=== PATIENT | male | born 1940 | race Caucasian/White ===

== ENCOUNTER 2019-12-07 13:48 | Inpatient (IN) | payer OTHER, SELFPAY ==
[2019-12-07 13:59] VITALS: BMI 23.4
--- NOTE | 2019-12-07 14:01 | ED_ITS ---
HPI - SOB/Dyspnea General: Chief Complaint: Shortness of Breath/Dyspnea Stated Complaint: sob Time Seen by Provider: 12/07/19 14:00 History of Present Illness: HPI Narrative: Pt has been short of breath for 2 weeks with cough and has felt feverish, he has had body ahces. He states he has had to use his nebs and inhaler more than normal MD elicited complaint: shortness of breath and cough Pertinent past history: COPD Onset (ago): week(s) (2) Timing: constant Severity: moderate Exacerbating factors: exertion and movement Relieving factors: nothing Known history of: COPD Associated symptoms: Reports chest congestion and cough; Deny abdominal pain, chest pain, diaphoresis, lightheadedness, nausea or vomiting Treatment prior to arrival: bronchodilator Review of Systems General: Reports: 10 or more systems reviewed and unremarkable except in HPI and below Const: Denies: diaphoresis ENMT: Reports: throat pain Card: Denies: chest pain or lightheadedness Resp: Reports: shortness of breath, productive cough and chest congestion GI: Denies: abdominal pain, nausea, vomiting, diarrhea, constipation or blood in stool Musc: Denies: back pain or extremity swelling Skin/Breast: Denies: rash Neuro: Denies: headache, numbness in extremities or weakness in extremities Psych: Denies: anxiety or depression PFSH ED PFSH: Social History Smoking and tobacco status: former smoker Alcohol intake: never Physical Exam Const: COMMON NORMALS: no apparent distress and oriented x3 GENERAL APPEARANCE: cooperative; not in distress HENMT: COMMON NORMALS: normocephalic HEAD & SCALP: normal to inspection and normocephalic MOUTH: oral and palatal mucosa normal and lip normal THROAT: posterior oropharynx normal and tonsils normal Neck/C-Spine: COMMON NORMALS: full ROM, no lymphadenopathy, supple and no meningeal signs GENERAL: Yes normal visual inspection and Yes trachea midline Chest: COMMONS NORMALS: inspection of chest normal Resp: COMMON NORMALS: normal respiratory effort EFFORT & INSPECTION: Yes able to speak in complete sentences and No respiratory distress AUSCULTATION: wheezes expiratory wheezes and throughout Cardio: COMMON NORMALS: regular rate, regular rhythm, S1 normal heart sound, S2 normal heart sound and no murmurs RATE: regular rate RHYTHM: regular rhythm HEART SOUNDS: S1 normal and S2 normal PERIPHERAL PULSES: radial pulses present and dorsalis pedis pulses present GI: COMMON NORMALS: normal to inspection, nondistended, normoactive bowel sounds, soft to palpation and non-tender INSPECTION: Yes normal to inspection AUSCULTATION: Yes normoactive bowel sounds PALPATION: Yes soft, No tender, No guarding and No rigid RECTAL EXAM: Yes deferred : COMMON NORMALS: Yes no CVA tenderness BLADDER/KIDNEY EXAM: Yes no CVA tenderness Back/Pelvis: COMMON NORMALS: no CVA tenderness Extremity: COMMON NORMALS: normal to inspection, full ROM, normal capillary refill, no calf tenderness and no pedal edema Neuro: COMMON NORMALS: oriented x3, CN's II-XII intact bilaterally, moves all extremities and no focal motor deficits MENINGEAL SIGNS: Yes no meningeal signs Skin: COMMON NORMALS: no rashes or lesions noted GENERAL SKIN EXAM: no rashes or lesions noted Course Vital Signs: Vital signs: Vital Signs Temperature 98.3 F 12/07/19 14:03 Pulse Rate 83 12/07/19 14:03 Respiratory Rate 18 12/07/19 14:03 Blood Pressure 125/68 12/07/19 14:03 Pulse Oximetry 95 12/07/19 14:03 MDM - SOB/Dyspnea MDM Narrative: Medical decision making narrative: This pt has had sob and has interstitial pneumonitis. He is being tested for covid-19. He has an elevated troponin of 26. He has not been able to handle his dyspnea at home with his inhaler and nebs. He will need to be treataed with frequent bronchodilatorts and will need a rule out . Dr Ann agrees and wants him full admit Lab Data: Attestation: I reviewed the patient's lab results. Labs: Lab Results 12/07/19 12/07/19 12/07/19 Range/Units 14:10 14:40 14:40 WBC 5.2 (4.0-10.0) 10^3/ uL RBC 3.88 L (4.1-5.3) 10^6/u L Hgb 12.6 (11.7-16.6) g/dL Hct 37.1 L (42.0-52.0) % MCV 95.6 H (80-94) fL MCH 32.5 (28.0-34.0) pg MCHC 34.0 (30.0-36.0) g/dL RDW 13.3 (12.1-15.1) % Plt Count 133 (130-400) 10^3/c mm MPV 10.8 H (7.4-10.4) fL Neut % (Auto) 65.9 % Lymph % (Auto) 21.4 % Imperial % (Auto) 6.9 % Eos % (Auto) 4.6 % Baso % (Auto) 0.6 % Neut # (Auto) 3.5 (1.8-7.7) 10^3/u L Lymph # (Auto) 1.1 (0.8-4.8) 10^3/u L Imperial # (Auto) 0.4 (0.2-0.9) 10^3/u L Eos # (Auto) 0.2 (0.0-0.8) 10^3/u L Baso # (Auto) 0.0 (0.0-0.1) 10^3/u L Nucleated RBC % (a uto) 0 % Nucleated RBCs # 0.0 /100WBC Sodium 135 L (136-145) mmol/L Potassium 4.8 (3.5-5.1) mmol/L Chloride 102 (98-107) mmol/L Carbon Dioxide 24 (22-29) mmol/L Anion Gap 13.8 (5-19) BUN 20 (8-23) mg/dL Creatinine 1.5 H (0.7-1.2) mg/dL Glucose 158 H (65-115) mg/dL Calculated Osmolal ity 280 L (285-295) mOsm/k g Lactate (0.5-2.2) mmol/L Calcium 9.2 (8.5-10.5) mg/dL Total Bilirubin 0.8 (0.15-1.2) mg/dL AST 20 (0-40) U/L ALT 16 (0-41) U/L Alkaline Phosphata se 84 (40-130) IU/L Troponin T Baselin e (0-15) ng/mL NT-Pro-B Natriuret Pep 90 (0-450) pg/mL Total Protein 6.5 L (6.6-8.7) g/dL Albumin 4.5 (3.5-5.2) g/dL Globulin 2.0 (1.3-4.6) g/dL Influenza Type A A g Negative (Negative) Influenza Type B A g Negative (Negative) 12/07/19 12/07/19 Range/Units 14:40 14:40 WBC (4.0-10.0) 10^3/ uL RBC (4.1-5.3) 10^6/u L Hgb (11.7-16.6) g/dL Hct (42.0-52.0) % MCV (80-94) fL MCH (28.0-34.0) pg MCHC (30.0-36.0) g/dL RDW (12.1-15.1) % Plt Count (130-400) 10^3/c mm MPV (7.4-10.4) fL Neut % (Auto) % Lymph % (Auto) % Imperial % (Auto) % Eos % (Auto) % Baso % (Auto) % Neut # (Auto) (1.8-7.7) 10^3/u L Lymph # (Auto) (0.8-4.8) 10^3/u L Imperial # (Auto) (0.2-0.9) 10^3/u L Eos # (Auto) (0.0-0.8) 10^3/u L Baso # (Auto) (0.0-0.1) 10^3/u L Nucleated RBC % (a uto) % Nucleated RBCs # /100WBC Sodium (136-145) mmol/L Potassium (3.5-5.1) mmol/L Chloride (98-107) mmol/L Carbon Dioxide (22-29) mmol/L Anion Gap (5-19) BUN (8-23) mg/dL Creatinine (0.7-1.2) mg/dL Glucose (65-115) mg/dL Calculated Osmolal ity (285-295) mOsm/k g Lactate 0.7 (0.5-2.2) mmol/L Calcium (8.5-10.5) mg/dL Total Bilirubin (0.15-1.2) mg/dL AST (0-40) U/L ALT (0-41) U/L Alkaline Phosphata se (40-130) IU/L Troponin T Baselin e 26 H (0-15) ng/mL NT-Pro-B Natriuret Pep (0-450) pg/mL Total Protein (6.6-8.7) g/dL Albumin (3.5-5.2) g/dL Globulin (1.3-4.6) g/dL Influenza Type A A g (Negative) Influenza Type B A g (Negative) Imaging Data^: CXR: Radiologist's impression: [address] [address] XRay Report Signed Patient: Glenn Kong #: [id number] : 1940Acct#:[id number] Age/Sex: 79 / MADM Date: 12/07/19 Loc: ERRoom/Bed: Attending Dr: Ordering Provider/Ordering MD: Alka Archuleta DO Date of Service: 12/07/19 Procedure(s): XR chest 1V portable [id number] Accession Number(s): [id number] Report Number: [id number] WS: [id number] CHEST XRAY TECHNIQUE: Portable chest. CLINICAL INFORMATION: pneumonia COMPARISON: None. FINDINGS: Heart: Cardiomegaly. Aortic calcification. Lungs: Chronic emphysematous changes with bilateral perihilar interstitial infiltrates. Recommend correlation for interstitial pneumonitis. No focal pneumonia. No pleural fluid. A few calcified granulomas. Bones: Normal visualized bony structures. XR/XR chest 1V portable [id number] IMPRESSION: 1. Chronic emphysematous changes with perihilar interstitial thickening. Recommend correlation for interstitial pneumonitis. 2. No focal consolidation or pleural fluid. 3. Cardiomegaly. Dictated By:Jae Banda MD Signed By:Jae Banda MDSigned Date/Time:12/07/19 1502 DD/ 1500 EKG Data^: EKG 1: Attestation: I personally reviewed and interpreted this EKG as follows: EKG Interpretation Date: 12/07/19 EKG interpretation time: 14:49 Ischemic changes: non-specific ST-T wave changes Interpretation: sinus rhythm, LAFB, nonspecific st changes, rate 83 Discharge Plan Discharge Patient Disposition: Admitted As Inpatient Clinical Impression: Community acquired pneumonia, Acute exacerbation of chronic obstructive airways disease, Respiratory failure with hypoxia, Tobacco abuse Condition: Stable Prescriptions: No Action sertraline [Zoloft] 25 mg tablet 200 mg PO DAILY RF: 0 aripiprazole [Abilify] 10 mg tablet 10 mg PO DAILY RF: 0 trazodone 100 mg tablet 100 mg PO BEDTIME RF: 0 albuterol sulfate 90 mcg/actuation Hfa Aerosol Inhaler 1 inh INHALATION QID PRN (Reason: Shortness Of Breath) RF: 0 cyclobenzaprine 10 mg Tablet 10 mg PO TID PRN (Reason: Muscle Spasm) RF: 0 latanoprost 0.005 % Drops 1 drp OPHTHALMIC (EYE) BEDTIME RF: 0 ketoconazole 2 % Shampoo 1 applic TOPICAL DAILY RF: 0 vitamin A 10,000 unit Capsule 10,000 unit PO DAILY RF: 0 ascorbic acid (vitamin C) 500 mg Tablet 500 mg PO DAILY RF: 0 omeprazole 20 mg Capsule,Delayed Release(Dr/Ec) 40 mg PO DAILY RF: 0 vitamin B complex Tablet 1 tab PO DAILY RF: 0 hydrocortisone 2.5 % Cream 1 applic TOPICAL BID PRN (Reason: prn) RF: 0 lisinopril 40 mg Tablet 20 mg PO BEDTIME RF: 0 prazosin 2 mg Capsule 4 mg PO BEDTIME RF: 0 fluticasone propionate 110 mcg/actuation Hfa Aerosol Inhaler 1 puff INHALATION DAILY RF: 0 dorzolamide 2 % Drops 1 drp OPHTHALMIC (EYE) TID RF: 0 hypromellose 2.5 % Drops 1 drp OPHTHALMIC (EYE) BID PRN (Reason: Dry Eyes) RF: 0 cholecalciferol (vitamin D3) 2,000 unit Tablet 1,000 unit PO DAILY RF: 0 olodaterol 2.5 mcg/actuation Mist 2 inh INHALATION DAILY RF: 0 Referrals: Randy Lares [Primary Care Provider] - Coding Level of Care Code ED Owner/Photographer for Chg Fwd Exam Comprehensive
[2019-12-07 14:03] VITALS: BP 125/68; PULSE 83; RESP 18; TEMP 36.8; O2SAT 95
--- NOTE | 2019-12-07 14:12 | XR_ITS ---
WS: [id number] CHEST XRAY TECHNIQUE: Portable chest. CLINICAL INFORMATION: pneumonia COMPARISON: None. FINDINGS: Heart: Cardiomegaly. Aortic calcification. Lungs: Chronic emphysematous changes with bilateral perihilar interstitial infiltrates. Recommend cor relation for interstitial pneumonitis. No focal pneumonia. No pleural fluid. A few calcified granulom as. Bones: Normal visualized bony structures. XR/XR chest 1V portable [id number] IMPRESSION: 1. Chronic emphysematous changes with perihilar interstitial thickening. Recom mend correlation for interstitial pneumonitis. 2. No focal consolidation or pleural fluid. 3. Cardiomegaly.
--- NOTE | 2019-12-07 14:13 | ECG_ITS ---
Measurements Intervals [place] Rate: 83 P: 78 NH: 173 QRS: -45 QRSD: 97 T: 82 QT: 357 QTc: 420 SINUS RHYTHM LEFT ANTERIOR FASCICULAR BLOCK [QRS AXIS <= -45, QR IN I, RS IN II] MINIMAL VOLTAGE CRITERIA FOR LVH, CONSIDER NORMAL VARIANT [MEETS CRITERIA IN ONE OF: R(aVL), S(V1), R(V5), R(V5/V6)+S(V1)] NONSPECIFIC T-WAVE ABNORMALITY Compared to ECG 08/13/2018 14:20:15 Left anterior fascicular block now present Ventricular premature complex(es) no longer present Left-axis deviation no longer present T-wave abnormality still present Electronically Signed On 12-08-2019 18:00:14 CDT by Nikki Finn M.D. [id number]
[2019-12-07 14:52] LABS: Basophils % 0.6 %; Eosinophils # 0.2 10^3/uL (0.0-0.8); Eosinophils % 4.6 %; Hematocrit 37.1 % (42.0-52.0); Hemoglobin 12.6 g/dL (11.7-16.6); Lymphocytes # 1.1 10^3/uL (0.8-4.8); Lymphocytes % 21.4 %; Mean Corpuscular Hemoglobin 32.5 pg (28.0-34.0); Mean Corpuscular Volume 95.6 fL (80-94); Mean Platelet Volume 10.8 fL (7.4-10.4); Monocytes # 0.4 10^3/uL (0.2-0.9); Monocytes % 6.9 %; Neutrophils # 3.5 10^3/uL (1.8-7.7); Neutrophils % 65.9 %; Nucleated Red Blood Cells % 0 %; Platelet Count 133 10^3/cmm (130-400); Red Blood Count 3.88 10^6/uL (4.1-5.3); Red Cell Distribution Width 13.3 % (12.1-15.1); White Blood Count 5.2 10^3/uL (4.0-10.0)
[2019-12-07 15:27] LABS: Lactate (Lactic Acid level) 0.7 mmol/L (0.5-2.2)
[2019-12-07 15:28] LABS: Troponin(5th) Baseline 26 ng/mL (0-15)
[2019-12-07 15:38] LABS: Alanine Aminotransferase 16 U/L (0-41); Albumin Level 4.5 g/dL (3.5-5.2); Alkaline Phosphatase 84 IU/L (40-130); Anion Gap 13.8 (5-19); Aspartate Amino Transferase 20 U/L (0-40); Blood Urea Nitrogen 20 mg/dL (8-23); Calcium 9.2 mg/dL (8.5-10.5); Carbon Dioxide 24 mmol/L (22-29); Chloride 102 mmol/L (98-107); Glucose 158 mg/dL (65-115); NT Pro B Type Natriuretic Pept 90 pg/mL (0-450); Osmolality Calculated 280 mOsm/kg (285-295); Potassium 4.8 mmol/L (3.5-5.1); Sodium 135 mmol/L (136-145); Total Bilirubin 0.8 mg/dL (0.15-1.2); Total Protein 6.5 g/dL (6.6-8.7)
[2019-12-07] MEDS: levofloxacin-dextrose 5 % 750 MG/150 ML PREMIX 150 MG IV (16:10)
[2019-12-07 16:11] LABS: Influenza A by IFA Negative (Negative); Influenza B by IFA Negative (Negative)
--- NOTE | 2019-12-07 16:13 | ECG_ITS ---
Measurements Intervals [place] Rate: 82 P: 67 [place]: 166 QRS: -43 QRSD: 96 T: 81 QT: 362 QTc: 425 SINUS RHYTHM LEFT AXIS DEVIATION [QRS AXIS < -30] MINIMAL VOLTAGE CRITERIA FOR LVH, CONSIDER NORMAL VARIANT [MEETS CRITERIA IN ONE OF: R(aVL), S(V1), R(V5), R(V5/V6)+S(V1)] NONSPECIFIC T-WAVE ABNORMALITY Compared to ECG 08/13/2018 14:20:15 Ventricular premature complex(es) no longer present T-wave abnormality still present Electronically Signed On 12-08-2019 18:06:06 CDT by Nikki Finn M.D. [id number]
[2019-12-07 17:26] LABS: Troponin 5 2HR 22.86 ng/mL (0-15)
--- NOTE | 2019-12-07 17:46 | P.HP_ITS ---
Providers/Chief Complaint Admitting Physician: Ron Ann MD Primary Care Provider: Radny Lares Chief Complaint: sob History of Present Illness Glenn Kong is a 79 year old male presents with gradually worsening shortness of breath and dry cough for the last 2 weeks. He felt feverish off and on for the last couple of weeks. Reports that he has been wheezing a lot and using bronchodilators without significant improvement. Denies any travel or sick contacts. For the last 2 months his [facility] friend was staying with him as he has no place to live. He denies chest pain or abdominal pain. Denies any other significant symptoms. He has previous history of COPD but otherwise denies history of diabetes, heart disease or stroke. He does not use oxygen at home. He has depression and bipolar disorder which are under good control on his current regimen. In the emergency department patient was diagnosed with acute COPD exacerbation. COVID19 test was requested. Patient was examined with appropriate precautions. Creatinine is 1.5 and we do not know patient's baseline. Patient's troponin is slightly elevated and likely secondary to demand ischemia. No evidence of heart failure Review of Systems Narrative: Except as mentioned above. 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); Denies: joint swelling Skin/Breast: Denies: rash or redness Neuro: Denies: headache or weakness in extremities Psych: Denies: depression or suicidal ideation Endo: Denies: excessive sweating Danilo/Lymph: Denies: easy bleeding or tender lymph nodes All/Imm: Denies: throat swelling Medications/Allergies Home Medications Medication Instructions Recorded Confirmed Last Taken Type albuterol sulfate 1 inh INHALATION QID PRN 12/07/19 12/07/19 Unknown History ascorbic acid (vitamin C) 500 mg PO DAILY 12/07/19 12/07/19 Unknown History cholecalciferol (vitamin D3) 1,000 unit PO DAILY 12/07/19 12/07/19 Unknown History cyclobenzaprine 10 mg PO TID PRN 12/07/19 12/07/19 Unknown History dorzolamide 1 drp OPHTHALMIC (EYE) TID 12/07/19 12/07/19 Unknown History fluticasone propionate 1 puff INHALATION DAILY 12/07/19 12/07/19 Unknown History hydrocortisone 1 applic TOPICAL BID PRN 12/07/19 12/07/19 Unknown History hypromellose 1 drp OPHTHALMIC (EYE) BID PRN 12/07/19 12/07/19 Unknown History ketoconazole 1 applic TOPICAL DAILY 12/07/19 12/07/19 Unknown History latanoprost 1 drp OPHTHALMIC (EYE) BEDTIME 12/07/19 12/07/19 Unknown History lisinopril 20 mg PO BEDTIME 12/07/19 12/07/19 Unknown History olodaterol 2 inh INHALATION DAILY 12/07/19 12/07/19 Unknown History omeprazole 40 mg PO DAILY 12/07/19 12/07/19 Unknown History prazosin 4 mg PO BEDTIME 12/07/19 12/07/19 Unknown History vitamin A 10,000 unit PO DAILY 12/07/19 12/07/19 Unknown History vitamin B complex 1 tab PO DAILY 12/07/19 12/07/19 Unknown History Allergies Allergy/AdvReac Type Severity Reaction Status Date / Time No Known Allergies Allergy Verified 12/07/19 14:04 PFSH Acute PFSH: Medical History (Updated 12/07/19 @ 17:57 by Ron Ann MD) Bipolar disorder Depression Macular degeneration Ulnar nerve entrapment at right elbow Surgical History (Updated 12/07/19 @ 17:57 by Ron Ann MD) History of hammertoe correction Hx of cholecystectomy Family History (Updated 12/07/19 @ 17:58 by Ron Ann MD) Father , Alcoholic and from complications of TB No problems noted. Mother Lung disease Social History Smoking and tobacco status: former smoker Alcohol intake: never Vitals/I&O/Wt Last Vital Signs Temp 98.3 F 12/07/19 14:03 Pulse 83 12/07/19 14:03 Resp 18 12/07/19 14:03 BP 125/68 12/07/19 14:03 Pulse Ox 95 12/07/19 14:03 Weight last 48 hrs Weight 76.204 kg Physical Exam Const: COMMON NORMALS: no apparent distress, oriented x3 and alert HENMT: COMMON NORMALS: normocephalic and head/scalp atraumatic HEAD & SCALP: normocephalic and atraumatic Eye: COMMON NORMALS: EOMs intact bilaterally, conjunctivae normal and no scleral icterus CONJUNCTIVA: Yes conjunctivae normal Neck/C-Spine: COMMON NORMALS: no lymphadenopathy and no meningeal signs Lymph: LYMPHATIC: no lymphadenopathy noted Chest: COMMONS NORMALS: palpation of chest normal Resp: COMMON NORMALS: no use of accessory muscles OTHER: Coarse breath sounds throughout which appear to be upper airway transmitted sounds. Scattered expiratory wheezing noted. Cardio: COMMON NORMALS: regular rate, regular rhythm and no murmurs RATE: regular rate RHYTHM: regular rhythm OTHER: No lower extremity edema GI: COMMON NORMALS: soft to palpation and non-tender PALPATION: Yes soft RECTAL EXAM: Yes deferred : COMMON NORMALS: Yes no CVA tenderness BLADDER/KIDNEY EXAM: Yes no CVA tenderness Back/Pelvis: COMMON NORMALS: no CVA tenderness and thoracic and lumbar spine normal to inspection Extremity: COMMON NORMALS: normal to inspection and normal capillary refill Neuro: COMMON NORMALS: oriented x3 and no focal motor deficits SENSORIUM/ORIENTATION: Yes alert MENINGEAL SIGNS: Yes no meningeal signs Psych: COMMON NORMALS: mental status grossly normal, thought process normal and cooperative THOUGHT PROCESS: normal thought process Skin: COMMON NORMALS: no rashes or lesions noted GENERAL SKIN EXAM: no rashes or lesions noted Data : 12/07/19 14:40 12/07/19 14:40 Micro: Microbiology 12/07/19 14:40 Blood Culture - Preliminary Blood SPECIMEN COLLECTED 12/07/19 14:35 Blood Culture - Preliminary Blood SPECIMEN COLLECTED A&P Assessment and plan (1) Acute bronchitis: Status: Acute (2) Acute exacerbation of chronic obstructive airways disease: Status: Acute Additional A&P Information Continue with bronchodilators. Hold steroids due to potential for COVID although some studies show early steroid treatment may be beneficial with coronavirus infection. Patient was given Levaquin and we will continue that because of findings of pneumonitis and possible early pneumonia. Physical therapy. Lovenox for DVT prophylaxis with close monitoring of hemoglobin. Protonix for GI protection. Attestations Medical Necessity Statement*: Patient with acute COPD exacerbation and concern for early pneumonia requires at least observation for further monitoring and treatment. I expect patient will require less than two midnights. Coding Level of Care Code Acute Director Meetings for Tori Saldana Diagnoses Acute bronchitis J20.9 Acute exacerbation of chronic obstructive airways disease J44.1
[2019-12-07 18:39] VITALS: BP 116/68; PULSE 79; RESP 17; O2SAT 97
[2019-12-07 19:16] LABS: Troponin 5 2HR Delta -3.14 ABS# (0-10)
--- NOTE | 2019-12-07 19:34 | PC.NURSE ---
Patient taken to floor in stable condition, care turned over to Alan CAMERON.
[2019-12-07 20:09] VITALS: BP 130/72; PULSE 72; RESP 24; TEMP 36.7; O2SAT 95
--- NOTE | 2019-12-07 20:13 | ECG_ITS ---
Measurements Intervals [place] Rate: 68 P: 75 [place]: 180 QRS: -39 QRSD: 96 T: 61 QT: 382 QTc: 407 SINUS RHYTHM MARKED LEFT AXIS DEVIATION [QRS AXIS < -30] NONSPECIFIC T-WAVE ABNORMALITY Compared to ECG 08/13/2018 14:20:15 Ventricular premature complex(es) no longer present T-wave abnormality still present Electronically Signed On 12-08-2019 18:09:45 CDT by Nikki Finn M.D. [id number]
[2019-12-07] MEDS: lactated ringers 1,000 ML 50 ML IV (20:54)
[2019-12-07] MEDS: pantoprazole DR 40 mg Tablet PO (20:55)
[2019-12-07] MEDS: lisinopril 20 mg Tablet PO (20:55)
[2019-12-07] MEDS: trazodone 100 mg Tablet PO (20:55)
[2019-12-07] MEDS: enoxaparin 40 mg/0.4 mL Syringe SUBCUT (20:56)
[2019-12-07 21:08] LABS: Troponin 5 6HR 24.99 ng/mL (0-15)
[2019-12-07] MEDS: dorzolamide 2% Op Soln 10 mL Btl 1 DROP EYE-BOTH (22:06)
[2019-12-07] MEDS: latanoprost 0.005% Op Soln 2.5 mL Btl 1 DROP EYE-BOTH (22:06)
[2019-12-07] MEDS: prazosin 1 mg Capsule 4 MG PO (22:07)
[2019-12-07 22:45] VITALS: PULSE 87; RESP 18; O2SAT 97
[2019-12-07] MEDS: ipratropium-albuterol 3 mL Neb INHALATION (22:45)
[2019-12-07 22:52] LABS: Troponin 5 6HR Delta -1.01 ng/L (0-12)
[2019-12-08] VITALS (11 sets, daily range): BP systolic 99–148; BP diastolic 57–76; PULSE 76–89; RESP 18–24; TEMP 36.5–37; O2SAT 91–99
--- NOTE | 2019-12-08 00:44 | PC.PHAR ---
RENAL DOSING FOR LEVAQUIN 750MG IV Q DAY CHANGED TO Q48H DUE TO CRCL OF 42
[2019-12-08 03:46] LABS: INR 1.03 (0.8-1.2)
[2019-12-08 03:47] LABS: Partial Thromboplastin Time 34.5 SECONDS (23.9-36.7)
[2019-12-08 03:54] LABS: Alanine Aminotransferase 12 U/L (0-41); Albumin Level 3.9 g/dL (3.5-5.2); Alkaline Phosphatase 69 IU/L (40-130); Anion Gap 14.8 (5-19); Aspartate Amino Transferase 16 U/L (0-40); Blood Urea Nitrogen 23 mg/dL (8-23); Calcium 8.9 mg/dL (8.5-10.5); Carbon Dioxide 24 mmol/L (22-29); Chloride 106 mmol/L (98-107); Globulin 1.9 g/dL (1.3-4.6); Glucose 134 mg/dL (65-115); Magnesium 2.1 mg/dL (1.7-2.3); Osmolality Calculated 289 mOsm/kg (285-295); Potassium 4.8 mmol/L (3.5-5.1); Sodium 140 mmol/L (136-145); Total Bilirubin 0.5 mg/dL (0.15-1.2); Total Protein 5.8 g/dL (6.6-8.7)
[2019-12-08 04:06] LABS: Basophils % 0.3 %; Eosinophils # 0.2 10^3/uL (0.0-0.8); Eosinophils % 3.3 %; Hematocrit 34.3 % (42.0-52.0); Hemoglobin 11.2 g/dL (11.7-16.6); Lymphocytes # 1.4 10^3/uL (0.8-4.8); Lymphocytes % 22.6 %; Mean Corpuscular HGB Conc 32.7 g/dL (30.0-36.0); Mean Corpuscular Hemoglobin 31.8 pg (28.0-34.0); Mean Corpuscular Volume 97.4 fL (80-94); Mean Platelet Volume 10.7 fL (7.4-10.4); Monocytes # 0.5 10^3/uL (0.2-0.9); Monocytes % 8.3 %; Neutrophils # 4.1 10^3/uL (1.8-7.7); Neutrophils % 64.9 %; Nucleated Red Blood Cells % 0 %; Platelet Count 116 10^3/cmm (130-400); Red Blood Count 3.52 10^6/uL (4.1-5.3); Red Cell Distribution Width 13.4 % (12.1-15.1); White Blood Count 6.3 10^3/uL (4.0-10.0)
[2019-12-08] MEDS: sertraline 100 mg Tablet 200 MG PO (08:52)
[2019-12-08] MEDS: ARIPiprazole 10 mg Tablet PO (08:52)
[2019-12-08] MEDS: ipratropium-albuterol 3 mL Neb INHALATION ×2 (08:58→15:26)
[2019-12-08] MEDS: dorzolamide 2% Op Soln 10 mL Btl 1 DROP EYE-BOTH ×3 (09:06→21:35)
--- NOTE | 2019-12-08 15:58 | P.PN_ITS ---
Subjective Subjective: Interval history: Patient reports feeling better but reports that he continues to have cough. His breathing is improved and he denies chest pain. He has good appetite and ate all of his lunch. COVID19 test came back negative. Patient does not feel strong enough to be dismissed home. His vitals are stable. He is saturating 93% on room air. Vitals/I&O/Wt Last Vital Signs Temp 98.6 F 12/08/19 15:46 Pulse 89 12/08/19 15:46 Resp 18 12/08/19 15:46 BP 119/65 12/08/19 15:46 Pulse Ox 93 12/08/19 15:46 12/08/19 12/08/19 12/08/19 06:59 14:59 22:59 Intake Total 200 / 500 360 / 360 Output Total 1000 / 1000 Balance 200 / 500 -640 / -640 Weight last 48 hrs Weight 76.204 kg Physical Exam Const: COMMON NORMALS: no apparent distress and oriented x3 Resp: COMMON NORMALS: normal respiratory effort OTHER: Coarse upper airway transmitted sounds throughout. Cardio: COMMON NORMALS: regular rate, regular rhythm and S2 normal heart sound RATE: regular rate RHYTHM: regular rhythm HEART SOUNDS: S2 normal OTHER: No lower extremity edema GI: COMMON NORMALS: normal to inspection, nondistended, normoactive bowel sounds, soft to palpation and non-tender PALPATION: Yes soft Neuro: COMMON NORMALS: oriented x3 and no focal motor deficits Data : 12/08/19 03:19 12/08/19 03:19 Micro: Microbiology 12/07/19 14:40 Blood Culture - Preliminary Blood NEGATIVE TO DATE 12/07/19 14:35 Blood Culture - Preliminary Blood NEGATIVE TO DATE A&P Assessment and plan (1) Acute bronchitis: Status: Acute (2) Acute exacerbation of chronic obstructive airways disease: Status: Acute Additional A&P Information Continue current monitoring and treatment including Levaquin and if continues to improve we could possibly dismiss patient home in a day or 2. Attestations Medical Necessity Statement*: Patient with acute COPD exacerbation and bronchitis requires close inpatient monitoring and treatment as he remains symptomatic. Coding Level of Care Code Acute Lumber Tying Machine Operator for Tori Saldana Diagnoses Acute bronchitis J20.9 Acute exacerbation of chronic obstructive airways disease J44.1
--- NOTE | 2019-12-08 17:23 | PC.PT ---
PT evaluation on hold today pending results of coved testing; will follow tomorrow
[2019-12-08] MEDS: lactated ringers 1,000 ML 50 ML IV (18:00)
[2019-12-08] MEDS: enoxaparin 40 mg/0.4 mL Syringe SUBCUT (21:13)
[2019-12-08] MEDS: lisinopril 20 mg Tablet PO (21:13)
[2019-12-08] MEDS: trazodone 100 mg Tablet PO (21:14)
[2019-12-08] MEDS: prazosin 1 mg Capsule 4 MG PO (21:35)
[2019-12-08] MEDS: latanoprost 0.005% Op Soln 2.5 mL Btl 1 DROP EYE-BOTH (21:35)
[2019-12-09] VITALS (8 sets, daily range): BP systolic 114–124; BP diastolic 69–75; PULSE 73–86; RESP 16–26; TEMP 36.6–37; O2SAT 93–96
[2019-12-09 05:20] LABS: Basophils % 0.3 %; Eosinophils # 0.3 10^3/uL (0.0-0.8); Eosinophils % 4.4 %; Hematocrit 34.6 % (42.0-52.0); Hemoglobin 11.4 g/dL (11.7-16.6); Lymphocytes # 1.3 10^3/uL (0.8-4.8); Lymphocytes % 20.7 %; Mean Corpuscular HGB Conc 32.9 g/dL (30.0-36.0); Mean Corpuscular Hemoglobin 32.7 pg (28.0-34.0); Mean Corpuscular Volume 99.1 fL (80-94); Mean Platelet Volume 10.7 fL (7.4-10.4); Monocytes # 0.6 10^3/uL (0.2-0.9); Monocytes % 9.4 %; Neutrophils % 64.4 %; Nucleated Red Blood Cells % 0 %; Platelet Count 125 10^3/cmm (130-400); Red Blood Count 3.49 10^6/uL (4.1-5.3); Red Cell Distribution Width 13.4 % (12.1-15.1); White Blood Count 6.2 10^3/uL (4.0-10.0)
[2019-12-09 05:47] LABS: Alanine Aminotransferase 12 U/L (0-41); Albumin Level 3.9 g/dL (3.5-5.2); Alkaline Phosphatase 71 IU/L (40-130); Anion Gap 14.8 (5-19); Aspartate Amino Transferase 16 U/L (0-40); Blood Urea Nitrogen 24 mg/dL (8-23); Calcium 9.1 mg/dL (8.5-10.5); Carbon Dioxide 26 mmol/L (22-29); Chloride 106 mmol/L (98-107); Globulin 1.8 g/dL (1.3-4.6); Glucose 124 mg/dL (65-115); Magnesium 2.2 mg/dL (1.7-2.3); Osmolality Calculated 292 mOsm/kg (285-295); Potassium 4.8 mmol/L (3.5-5.1); Sodium 142 mmol/L (136-145); Total Bilirubin 0.5 mg/dL (0.15-1.2); Total Protein 5.7 g/dL (6.6-8.7)
[2019-12-09] MEDS: dorzolamide 2% Op Soln 10 mL Btl 1 DROP EYE-BOTH (08:16)
[2019-12-09] MEDS: sertraline 100 mg Tablet 200 MG PO (08:16)
[2019-12-09] MEDS: ipratropium-albuterol 3 mL Neb INHALATION (08:22)
[2019-12-09] MEDS: ARIPiprazole 10 mg Tablet PO (08:40)
--- NOTE | 2019-12-09 09:31 | PM.DCS ---
Discharge Providers Date of Admission: 12/07/19 17:11 Date of Discharge: December 09, 2019 Attending Provider at Admission: Ron Ann MD Attending Provider at Discharge: Ron Ann MD Primary Care Provider: Randy Lares Diagnoses at Discharge Discharge Diagnosis (1) Acute bronchitis: Status: Acute (2) Acute exacerbation of chronic obstructive airways disease: Status: Acute Reason for Visit Reason for Visit: Reason For Visit: sob Hospital Course Discharge Summary: Patient presents with acute shortness of breath and cough. He was diagnosed with acute bronchitis and related acute COPD exacerbation. Early pneumonia cannot be completely ruled out. Patient was treated with Levaquin and breathing treatments and gradually improved and this morning reports feeling much better and strong enough to be dismissed home. This morning patient denies shortness of breath or chest pain. Reports that his cough is getting better. He is breathing without any difficulty on room air this morning. His exam much improved and he has very minimal upper airway transmitted coarse breath sounds but otherwise much cleared with no evidence of wheezing or rails. He reports having good appetite. He lives with his roommate and feels safe to go home. I will request outpatient follow-up with Dr. Castaneda. Patient reports having [place] arranged home health once every month and reports that he does not need more than that. Physical Exam Const: COMMON NORMALS: no apparent distress and oriented x3 Resp: COMMON NORMALS: normal respiratory effort OTHER: Minimal coarse upper airway transmitted sounds. No wheezing or rales. Cardio: COMMON NORMALS: regular rate, regular rhythm and S2 normal heart sound RATE: regular rate RHYTHM: regular rhythm HEART SOUNDS: S2 normal OTHER: No lower extremity edema GI: COMMON NORMALS: normal to inspection, nondistended, normoactive bowel sounds, soft to palpation and non-tender PALPATION: Yes soft Neuro: COMMON NORMALS: oriented x3 and no focal motor deficits Discharge Data Data Completed and Pending: Completed Studies During Hospitalization Category Date Time Status XR chest 1V bertha ble [id number] Stat Exams 12/07/19 14:12 Completed Pending at discharge Category Date Time Status Blood Culture Sta t Lab 12/07/19 14:40 Results Complete Blood Co unt w/Auto AM LABS Lab 12/10/19 04:00 Ordered Comprehensive Met abolic Panel AM LA BS Lab 12/10/19 04:00 Ordered Magnesium AM LABS Lab 12/10/19 04:00 Ordered Labs from last 24 hours 12/09/19 12/09/19 12/07/19 04:54 04:54 22:30 WBC 6.2 RBC 3.49 L Hgb 11.4 L Hct 34.6 L MCV 99.1 H MCH 32.7 MCHC 32.9 RDW 13.4 Plt Count 125 L MPV 10.7 H Neut % (Auto) 64.4 Lymph % (Auto) 20.7 [place] % (Auto) 9.4 Eos % (Auto) 4.4 Baso % (Auto) 0.3 Neut # (Auto) 4.0 Lymph # (Auto) 1.3 [place] # (Auto) 0.6 Eos # (Auto) 0.3 Baso # (Auto) 0.0 Nucleated RBC % (a uto) 0 Nucleated RBCs # 0.0 Sodium 142 Potassium 4.8 Chloride 106 Carbon Dioxide 26 Anion Gap 14.8 BUN 24 H Creatinine 1.5 H Glucose 124 H Calculated Osmolal ity 292 Calcium 9.1 Magnesium 2.2 Total Bilirubin 0.5 AST 16 ALT 12 Alkaline Phosphata se 71 Total Protein 5.7 L Albumin 3.9 Globulin 1.8 Nasal/Oral COVID-1 9 PCR See comment Vitals: Last Vital Signs Temp 97.9 F 12/09/19 07:24 Pulse 83 12/09/19 08:28 Resp 18 12/09/19 08:26 BP 121/69 12/09/19 07:24 Pulse Ox 93 12/09/19 08:26 Discharge Plan Discharge Patient Disposition: Home, Self-Care Condition: Stable Prescriptions: New levofloxacin [Levaquin] 750 mg tablet 750 mg PO EVERY OTHER DAY 7 Days Qty: 4 RF: 0 Continued sertraline [Zoloft] 25 mg tablet 200 mg PO DAILY RF: 0 aripiprazole [Abilify] 10 mg tablet 10 mg PO DAILY RF: 0 trazodone 100 mg tablet 100 mg PO BEDTIME RF: 0 albuterol sulfate 90 mcg/actuation Hfa Aerosol Inhaler 1 inh INHALATION QID PRN (Reason: Shortness Of Breath) RF: 0 cyclobenzaprine 10 mg Tablet 10 mg PO TID PRN (Reason: Muscle Spasm) RF: 0 latanoprost 0.005 % Drops 1 drp OPHTHALMIC (EYE) BEDTIME RF: 0 ketoconazole 2 % Shampoo 1 applic TOPICAL DAILY RF: 0 vitamin A 10,000 unit Capsule 10,000 unit PO DAILY RF: 0 ascorbic acid (vitamin C) 500 mg Tablet 500 mg PO DAILY RF: 0 omeprazole 20 mg Capsule,Delayed Release(Dr/Ec) 40 mg PO DAILY RF: 0 vitamin B complex Tablet 1 tab PO DAILY RF: 0 hydrocortisone 2.5 % Cream 1 applic TOPICAL BID PRN (Reason: prn) RF: 0 lisinopril 40 mg Tablet 20 mg PO BEDTIME RF: 0 prazosin 2 mg Capsule 4 mg PO BEDTIME RF: 0 fluticasone propionate 110 mcg/actuation Hfa Aerosol Inhaler 1 puff INHALATION DAILY RF: 0 dorzolamide 2 % Drops 1 drp OPHTHALMIC (EYE) TID RF: 0 hypromellose 2.5 % Drops 1 drp OPHTHALMIC (EYE) BID PRN (Reason: Dry Eyes) RF: 0 cholecalciferol (vitamin D3) 2,000 unit Tablet 1,000 unit PO DAILY RF: 0 olodaterol 2.5 mcg/actuation Mist 2 inh INHALATION DAILY RF: 0 Discharge Orders: Discharge Order (Routine); Ordered 12/09/19 Ordered By: Ron Ann Referrals: Randy Lares [Primary Care Provider] - 4-7 days Carlos Castaneda MD [Physician] - 2 weeks Discharge Diet: Regular Discharge Activity: Increase activity as tolerated Activity Restrictions/Additional Instructions: Please call your doctor or present to emergency department if your condition worsens or you develop diarrhea. Discharge Attestations Time Spent in Discharge Care*: greater than 30 min Quality Metrics Clinical Quality Measures During this hospital stay, did patient experience: None Coding Level of Care Code Acute Tactical Air Defense Controller for Tori Saldana Diagnoses Acute bronchitis J20.9 Acute exacerbation of chronic obstructive airways disease J44.1
--- NOTE | 2019-12-09 15:02 | PC.RESP ---
Patient given information for Pulmonary Rehab
== END 2019-12-09 14:30 | disposition home or self-care (01) | DRG 190 ==
LOC: ER 17:09 → MEDSURG 18:26
PROVIDERS: Admitting Provider Internal Medicine; Emergency Provider Emergency Medicine; Family Provider Internal Medicine; PCP Internal Medicine; Visit Provider Internal Medicine
DX: J44.0 Chronic obstructive pulmonary disease with (acute) lower respiratory infection (principal); J18.9 Pneumonia, unspecified organism; J20.9 Acute bronchitis, unspecified; H54.8 Legal blindness, as defined in USA; H35.30 Unspecified macular degeneration; F32.9 Major depressive disorder, single episode, unspecified; Z87.891 Personal history of nicotine dependence
CPT/HCPCS: 12345; 36415; 71045; 80053; 83605; 83735; 83880; 84484; 85025; 85610; 85730; 87040; 87635; 87804; 93005; 94640; 96372; 97110; 97161; 97530; 99283; J1650; J1956; J3535

== ENCOUNTER 2020-01-03 11:55 | Outpatient (RCR) | payer OTHER, SELFPAY | END 2020-01-30 23:59 | disposition home or self-care (01) | LOC: SPT 11:55 | PROVIDERS: Family Provider Internal Medicine; Referring Provider Family Medicine; Visit Provider Family Medicine | DX: R53.1 Weakness (principal) | CPT/HCPCS: 97110; 97162 ==

== ENCOUNTER 2020-01-31 06:00 | Outpatient (RCR) | payer OTHER, SELFPAY | END 2020-02-24 16:53 | disposition home or self-care (01) | LOC: SPT 06:00 | PROVIDERS: PCP Internal Medicine; Visit Provider Family Medicine | DX: R53.1 Weakness (principal) | CPT/HCPCS: 97110 ==

== ENCOUNTER 2020-07-04 21:38 | Emergency (ER) | payer OTHER, SELFPAY ==
[2020-07-04 21:49] VITALS: BP 95/62; PULSE 84; RESP 16; TEMP 36.9; O2SAT 94; BMI 23.8
--- NOTE | 2020-07-04 22:15 | CTR_ITS ---
PROCEDURE INFORMATION: Exam: CT Abdomen And Pelvis With Contrast Exam date and time: 07/04/2020 11:39 PM Age: 79 years old Clinical indication: Abdominal pain; Generalized TECHNIQUE: Imaging protocol: Computed tomography of the abdomen and pelvis with intravenous contrast. Radiation optimization: All CT scans at this facility use at least one of these dose optimization techniques: automated exposure control; mA and/or kV adjustment per patient size (includes targeted exams where dose is matched to clinical indication); or iterative reconstruction. Contrast material: VISI; Contrast volume: 95 ml; Contrast route: INTRAVENOUS (IV); COMPARISON: CR FL barium enema [id number] 09/25/2018 9:33 AM RADIATION DOSE METRICS: Total DLP (mGy-cm): 838.26 FINDINGS: Lungs: Mild bronchiectasis in the lingula. Moderate bronchiectasis in the left lower lobe. Mild atelectasis and/or consolidation at bilateral lung bases (more prominent on the left). Liver: Unremarkable. Gallbladder and bile ducts: Status post cholecystectomy. Pancreas: Unremarkable. Spleen: Unremarkable. Adrenal glands: Unremarkable. Kidneys and ureters: The kidneys are unremarkable. No renal stones identified. No hydronephrosis on either side. Stomach and bowel: No bowel obstruction identified. Diverticulosis of the colon without evidence of diverticulitis. Appendix: A normal-appearing appendix is seen in the right lower quadrant. Intraperitoneal space: No free intraperitoneal air identified. No free intraperitoneal fluid identified. Vasculature: No abdominal aortic aneurysm. Lymph nodes: Unremarkable. Urinary bladder: Unremarkable as visualized. Reproductive: Many metallic seeds noted in the prostate. Bones/joints: Mild degenerative changes of the lower thoracic spine. Marked degenerative changes of the lumbar spine. Partial fusion of the vertebral bodies of L2, L3, and L4. Soft tissues: Unremarkable. CT/CT abdomen pelvis w con* [id number] IMPRESSION: 1. Mild bronchiectasis in the lingula. Moderate bronchiectasis in the left lower lobe. Mild atelectasis and/or consolidation at bilateral lung bases (more prominent on the left). 2. Additional, nonemergent findings as above. Radiation Dose CTDIVOL = (mGy): DLP = 838.26 (mGy-cm)
[2020-07-04 22:16] VITALS: BP 126/64; PULSE 78; RESP 18; O2SAT 95
--- NOTE | 2020-07-04 22:16 | US_ITS ---
WS: [id number] SCROTAL ULTRASOUND REASON FOR EXAM: Left testicular pain COMPARISON: None available. TECHNIQUE: Grayscale and duplex color Doppler ultrasound examination of the scrotum. FINDINGS: RIGHT: Right testes measures 3.6 cm x 1.7 cm x 1.2 cm. Normal color Doppler blood flow. No focal lesion. Nor mal echogenicity. Right epididymis measures 0.6 x 0.5 cm. LEFT: Left testes measures 3.1 cm x 1.9 cm x 1.9 cm. Normal color Doppler blood flow. No focal lesion. Norm al echogenicity. Left epididymis measures 0.9 x 1.0 cm. There is increased blood flow. There is a small amount of flui d in the left hemiscrotum adjacent to the epididymis. US/US scrotum [id number] IMPRESSION: No testicular torsion. Probable left epididymitis, epididymoorchitis.
--- NOTE | 2020-07-04 22:18 | W.ED.MALEGU ---
HPI - Male Genitourinary General: Chief complaint: Urogenital-Male Stated complaint: possible hernia Time Seen by Provider: 07/04/20 22:12 Source: patient Mode of arrival: ambulatory Limitations: no limitations History of Present Illness: HPI Narrative: Mr. Kong is a nice 79-year-old male who comes in complaining of left testicular pain upon movement. Patient states the pain is there only when he moves in certain positions. Is been present for the past 4 days. He denies any swelling or lumps in the groin. He denies any nausea or vomiting but at times he does have pain in his left lower quadrant. Patient denies any dysuria or hematuria. Patient denies any difficulty urinating, nausea or vomiting, back pain or bowel issues such as constipation or diarrhea. Associated symptoms: Deny dysuria, hematuria, nausea or vomiting Review of Systems Const: Denies: fever(s), chills, body aches, fatigue, malaise or diaphoresis Eyes: Denies: change in vision, blurry vision, photophobia, eye discomfort, eye discharge, eye redness or yellow eyes ENMT: Denies: throat pain, odynophagia, hoarseness, swelling of lips/tongue, ear or mastoid pain, ear discharge, change in hearing or nasal discharge Card: Denies: chest pain, palpitations, irregular heart rhythm, edema, lightheadedness, syncope, pre-syncope, dyspnea on exertion or orthopnea Resp: Denies: dyspnea, productive cough, non-productive cough, wheezing, hemoptysis or chest congestion GI: Reports: abdominal pain; Denies: nausea, vomiting, hematemesis, coffee ground emesis, heartburn, diarrhea, constipation, GI cramping, hematochezia or melena : Reports: testicular pain; Denies: flank pain, dysuria, urinary frequency, urinary urgency or hematuria Musc: Denies: neck pain, back pain, extremity pain, extremity swelling, joint pain, joint swelling, joint redness, joint warmth or joint stiffness Skin/Breast: Denies: rash, pruritus, erythema, skin pain or skin tenderness Neuro: Denies: headache(s), numbness in extremities, weakness in extremities, sensory changes, lack of coordination, difficulty walking, dizziness, vertigo, confusion, Slurred speech present or seizure-like activity Danilo/Lymph: Denies: easy bruising, easy bleeding, petechiae, purpura or enlarged lymph nodes All/Imm: Denies: urticaria, throat swelling, tongue swelling, facial swelling or acute wheezing PFSH ED PFSH: Medical History Bipolar disorder Chronic obstructive pulmonary disease Dactylitis of toe Depression Macular degeneration Ulnar nerve entrapment at right elbow Surgical History History of hammertoe correction Hx of cholecystectomy Family History Father , Alcoholic and from complications of TB No problems noted. 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 date alcohol: 1989 Caregiver/support person: Yes Lives independently: Yes Household members: caregiver Current occupational status: retired and disabled History of recent travel: No Current gender identity: Male Physical Exam Const: COMMON NORMALS: no acute distress, patient oriented x3, no limitations and alert GENERAL APPEARANCE: cooperative HENMT: COMMON NORMALS: normocephalic, atraumatic, external ears normal, EAC's normal and Normal external nose present HEAD & SCALP: normal to inspection, normocephalic and atraumatic FACE & SINUS: normal facial exam and face symmetric NOSE: Normal external nose present and Normal nares present EXTERNAL EAR: Yes external ears normal EXTERNAL AUDITORY CANAL: EAC's normal MOUTH: Normal oral and palatal mucosa present, lip normal and tongue normal Eye: COMMON NORMALS: Equal, round and reactive pupils present and conjunctivae normal GENERAL EYE: appearance normal, both eyes and all related structures ALIGNMENT: Yes alignment normal PERIORBITAL: periorbital findings normal EYELID: eyelids normal CONJUNCTIVA: Yes conjunctivae normal SCLERA: sclerae normal PUPIL: Yes Equal, round and reactive pupils present Neck/C-Spine: COMMON NORMALS: full ROM, no lymphadenopathy, supple, no meningeal signs and no JVD GENERAL: Yes normal visual inspection and Yes trachea midline Chest: COMMONS NORMALS: normal inspection of the chest and normal palpation of entire chest wall Resp: COMMON NORMALS: normal respiratory effort, No retractions, No use of accessory muscles and clear to auscultation bilaterally EFFORT & INSPECTION: Yes able to speak in complete sentences and Yes symmetric chest movement AUSCULTATION: clear to auscultation bilaterally, no crackles, no rales, no rhonchi and no wheezes Cardio: COMMON NORMALS: no JVD, regular rate, regular rhythm, S1 normal heart sound present and S2 normal heart sound present RATE: regular rate RHYTHM: regular rhythm HEART SOUNDS: S1 normal heart sound present, S2 normal heart sound present, no click, no gallops, no murmurs and no rubs GI: COMMON NORMALS: Soft to palpation and No hepatosplenomegaly present PALPATION: Yes Soft to palpation, Yes Tenderness to palpation present (GI) Details: LLQ, No Guarding due to palpation present (GI), No Rigid due to palpation, Yes No hepatosplenomegaly present, No Hernia present, No Palpable mass present and No Pulsatile mass present : COMMON NORMALS: Yes no CVA tenderness BLADDER/KIDNEY EXAM: Yes no CVA tenderness SCROTUM: Yes testes descended bilaterally, Yes Cremasteric reflex present and No inguinal hernia TESTES: Yes testicular tenderness Testicular tenderness laterality: left Back/Pelvis: COMMON NORMALS: no CVA tenderness, thoracic and lumbar spine normal to inspection, no thoracic nor lumbar tenderness and thoraco-lumbar ROM normal Extremity: COMMON NORMALS: normal to inspection, full ROM, capillary refill normal, no joint enlargement, no clubbing, cyanosis or edema and no calf tenderness Neuro: COMMON NORMALS: patient oriented x3, CN's II-XII intact bilaterally, moves all extremities, no focal motor deficits and no sensory deficits noted SENSORIUM/ORIENTATION: Yes alert MENINGEAL SIGNS: Yes no meningeal signs SPEECH: speech normal Psych: COMMON NORMALS: mental status grossly normal, Normal thought process present, cooperative, normal affect, speech normal and activity/motor behavior normal SPEECH: Yes normal speech THOUGHT PROCESS: Normal thought process present Skin: COMMON NORMALS: no rashes or lesions noted, turgor normal, no jaundice, no petechiae and no mottling GENERAL SKIN EXAM: no rashes or lesions noted and turgor normal Course Vital Signs: Vital signs: Vital Signs Temperature 98.4 F 07/04/20 21:49 Pulse Rate 67 07/05/20 00:32 Respiratory Rate 14 07/05/20 00:32 Blood Pressure 115/51 07/05/20 00:32 Pulse Oximetry 94 07/05/20 00:32 MDM - Male MDM Narrative: Medical decision making narrative: Ultrasound confirms epididymitis. CT scan does not show any evidence of other acute pathology. There is questionable atelectasis versus infiltrates in the bases but the patient is not symptomatic from a pulmonary perspective. Going to place him on Levaquin which should cover lung and his epididymitis. Give him medication for pain. He agrees to return should his symptoms change or worsen. Lab Data: Attestation: I reviewed the patient's lab results. Labs: Lab Results 07/04/20 07/04/20 07/04/20 Range/Units 22:25 22:38 22:38 WBC 5.3 (4.0-10.0) 10^3/ uL RBC 3.84 L (4.1-5.3) 10^6/u L Hgb 12.3 (11.7-16.6) g/dL Hct 37.5 L (42.0-52.0) % MCV 97.7 H (80-94) fL MCH 32.0 (28.0-34.0) pg MCHC 32.8 (30.0-36.0) g/dL RDW 12.7 (12.1-15.1) % Plt Count 139 (130-400) 10^3/c mm MPV 10.7 H (7.4-10.4) fL Neut % (Auto) 53.8 % Lymph % (Auto) 32.6 % [place] % (Auto) 8.3 % Eos % (Auto) 4.1 % Baso % (Auto) 0.8 % Neut # (Auto) 2.86 (1.8-7.7) 10^3/u L Lymph # (Auto) 1.7 (0.8-4.8) 10^3/u L [place] # (Auto) 0.4 (0.2-0.9) 10^3/u L Eos # (Auto) 0.2 (0.0-0.8) 10^3/u L Baso # (Auto) 0.0 (0.0-0.1) 10^3/u L Nucleated RBC % (a uto) 0 % Nucleated RBCs # 0.0 /100WBC Sodium 139 (136-145) mmol/L Potassium 4.6 (3.5-5.1) mmol/L Chloride 103 (98-107) mmol/L Carbon Dioxide 28 (22-29) mmol/L Anion Gap 12.6 (5-19) BUN 24 H (8-23) mg/dL Creatinine 1.3 H (0.7-1.2) mg/dL GFR Calculation Not Reportable Glucose 151 H (65-115) mg/dL Calculated Osmolal ity 295 (285-295) mOsm/k g Calcium 8.8 (8.5-10.5) mg/dL Total Bilirubin 0.4 (0.15-1.2) mg/dL AST 21 (0-40) U/L ALT 14 (0-41) U/L Alkaline Phosphata se 71 (40-130) IU/L Total Protein 6.0 L (6.6-8.7) g/dL Albumin 4.2 (3.5-5.2) g/dL Globulin 1.8 (1.3-4.6) g/dL Urine Color Yellow (Yellow) Urine Appearance Clear (CLEAR) Urine pH 5.0 (5-7) Ur Specific Gravit y 1.015 (1.005-1.030) Urine Protein Neg (Negative) Urine Glucose (UA) Norm (Normal) Urine Ketones Negative (Negative) Urine Blood Neg (Negative) Urine Nitrate Negative (Negative) Urine Bilirubin Neg (Negative) Urine Urobilinogen Norm (Negative) mg/dL Ur Leukocyte Denise ase Negative (Negative) Urine RBC None (0-2) /hpf Urine WBC None (0-5) /hpf Ur Squamous Epith Cells 0-4 H (0-5) /hpf Amorphous Sediment Not Reportable Urine Bacteria Trace (NONE) /hpf Imaging Data: US: Attestation: I personally reviewed and interpreted this imaging study as follows: My impression: Ultrasound scrotum and contents, tech interpretation -left epididymitis. No other acute findings. No hernia seen. CT Abd/Pel: Radiologist's impression: [address] [address] [address] Scan Report Signed Patient: Glenn Kong Unit #: [id number] : 1940 Age/Sex: 79 / M ADM Date: 07/04/20 Loc: ER Room/Bed: Attending Dr: Ordering Provider/Ordering MD: Melina Jennings DO Date of Service: 07/04/20 Procedure(s): CT abdomen pelvis w con* [id number] Accession Number(s): [id number] Report Number: [id number] PROCEDURE INFORMATION: Exam: CT Abdomen And Pelvis With Contrast Exam date and time: 07/04/2020 11:39 PM Age: 79 years old Clinical indication: Abdominal pain; Generalized TECHNIQUE: Imaging protocol: Computed tomography of the abdomen and pelvis with intravenous contrast. Radiation optimization: All CT scans at this facility use at least one of these dose optimization techniques: automated exposure control; mA and/or kV adjustment per patient size (includes targeted exams where dose is matched to clinical indication); or iterative reconstruction. Contrast material: VISI; Contrast volume: 95 ml; Contrast route: INTRAVENOUS (IV); COMPARISON: CR [place] barium enema [id number] 09/25/2018 9:33 AM RADIATION DOSE METRICS: Total DLP (mGy-cm): 838.26 FINDINGS: Lungs: Mild bronchiectasis in the lingula. Moderate bronchiectasis in the left lower lobe. Mild atelectasis and/or consolidation at bilateral lung bases (more prominent on the left). Liver: Unremarkable. Gallbladder and bile ducts: Status post cholecystectomy. Pancreas: Unremarkable. Spleen: Unremarkable. Adrenal glands: Unremarkable. Kidneys and ureters: The kidneys are unremarkable. No renal stones identified. No hydronephrosis on either side. Stomach and bowel: No bowel obstruction identified. Diverticulosis of the colon without evidence of diverticulitis. Appendix: A normal-appearing appendix is seen in the right lower quadrant. Intraperitoneal space: No free intraperitoneal air identified. No free intraperitoneal fluid identified. Vasculature: No abdominal aortic aneurysm. Lymph nodes: Unremarkable. Urinary bladder: Unremarkable as visualized. Reproductive: Many metallic seeds noted in the prostate. Bones/joints: Mild degenerative changes of the lower thoracic spine. Marked degenerative changes of the lumbar spine. Partial fusion of the vertebral bodies of L2, L3, and L4. Soft tissues: Unremarkable. CT/CT abdomen pelvis w con* [id number] IMPRESSION: 1. Mild bronchiectasis in the lingula. Moderate bronchiectasis in the left lower lobe. Mild atelectasis and/or consolidation at bilateral lung bases (more prominent on the left). 2. Additional, nonemergent findings as above. Radiation Dose CTDIVOL = (mGy): DLP = 838.26 (mGy-cm) Dictated By: Stevie Jerome MD Signed By: Stevie Jerome MD Signed Date/Time: 07/05/2028 DD/ Discharge Plan Discharge Patient Disposition: Home Clinical Impression: Acute epididymitis Condition: Stable Prescriptions: New levofloxacin 500 mg tablet 500 mg PO DAILY 14 Days RF: 0 [place] 5-325 mg tablet 1 tab PO Q6H PRN (Reason: pain) 5 Days Qty: 14 RF: 0 promethazine 25 mg tablet 25 mg PO Q4H PRN (Reason: nausea and vomiting) Qty: 20 RF: 0 No Action sertraline [Zoloft] 25 mg tablet 200 mg PO DAILY RF: 0 aripiprazole [Abilify] 10 mg tablet 10 mg PO DAILY RF: 0 trazodone 100 mg tablet 100 mg PO BEDTIME RF: 0 doxycycline monohydrate 100 mg capsule 100 mg PO BID Qty: 14 RF: 0 albuterol sulfate 2.5 mg /3 mL (0.083 %) solution for nebulization 2.5 mg INHALATION Q4H PRNRF: 0 Trelegy Ellipta 100-62.5-25 mcg blister with device 1 inh INHALATION DAILY Qty: 60 RF: 3 betamethasone acet,sod phos [Celestone Soluspan] 6 mg/mL suspension 6 mg INTRA-ALEJANDRA ONCE Qty: 1 RF: 0 bupivacaine (PF) 0.5 % (5 mg/mL) solution 10 mg INTRA-ALEJANDRA ONCE Qty: 2 RF: 0 lidocaine (PF) 10 mg/mL (1 %) solution 20 mg INTRA-ALEJANDRA ONCE Qty: 2 RF: 0 Gel-One 30 mg/3 mL syringe 30 mg INTRA-ALEJANDRA ONCE Qty: 3 RF: 0 sulfamethoxazole-trimethoprim [Bactrim DS] 800-160 mg tablet 1 tab PO BID 14 Days Qty: 28 RF: 0 albuterol sulfate 90 mcg/actuation Hfa Aerosol Inhaler 1 inh INHALATION QID PRN (Reason: Shortness Of Breath) RF: 0 cyclobenzaprine 10 mg Tablet 10 mg PO TID PRN (Reason: Muscle Spasm) RF: 0 latanoprost 0.005 % Drops 1 drp OPHTHALMIC (EYE) BEDTIME RF: 0 ketoconazole 2 % Shampoo 1 applic TOPICAL DAILY RF: 0 vitamin A 10,000 unit Capsule 10,000 unit PO DAILY RF: 0 ascorbic acid (vitamin C) 500 mg Tablet 500 mg PO DAILY RF: 0 omeprazole 20 mg Capsule,Delayed Release(Dr/Ec) 40 mg PO DAILY RF: 0 vitamin B complex Tablet 1 tab PO DAILY RF: 0 hydrocortisone 2.5 % Cream 1 applic TOPICAL BID PRN (Reason: prn) RF: 0 lisinopril 40 mg Tablet 20 mg PO BEDTIME RF: 0 prazosin 2 mg Capsule 4 mg PO BEDTIME RF: 0 fluticasone propionate 110 mcg/actuation Hfa Aerosol Inhaler 1 puff INHALATION DAILY RF: 0 dorzolamide 2 % Drops 1 drp OPHTHALMIC (EYE) TID RF: 0 hypromellose 2.5 % Drops 1 drp OPHTHALMIC (EYE) BID PRN (Reason: Dry Eyes) RF: 0 cholecalciferol (vitamin D3) 2,000 unit Tablet 1,000 unit PO DAILY RF: 0 olodaterol 2.5 mcg/actuation Mist 2 inh INHALATION DAILY RF: 0 Discharge Orders: Discharge Order (Routine); Ordered 07/05/20 Ordered By: Melina Jennings Referrals: Huseyin العراقي MD [Physician] - 1-3 days Discharge Diet: Advance as tolerated Discharge Activity: Increase activity as tolerated Patient Instructions: Epididymitis (ED) Activity Restrictions/Additional Instructions: Please return to the ER immediately for any of the signs or symptoms listed on your discharge instruction sheets, worsening/changing of your symptoms, you are not getting better as quickly as expected, or for ANY other cause or concerns. Discharge Date/Time: 07/05/20 01:00 Coding Level of Care Code ED Primary Care Coordinator for [place] Fwd Exam Comprehensive
[2020-07-04 22:37] VITALS: RESP 18
[2020-07-04] MEDS: morphine 4 mg/mL SDV 1 mL IVP (22:37)
[2020-07-04] MEDS: ondansetron 2 mg/ML SDV 2 mL 4 MG IVP (22:37)
[2020-07-04 22:41] VITALS: BP 117/70; PULSE 71; RESP 17; O2SAT 95
[2020-07-04 22:50] LABS: Basophils % 0.8 %; Eosinophils # 0.2 10^3/uL (0.0-0.8); Eosinophils % 4.1 %; Hematocrit 37.5 % (42.0-52.0); Hemoglobin 12.3 g/dL (11.7-16.6); Lymphocytes # 1.7 10^3/uL (0.8-4.8); Lymphocytes % 32.6 %; Mean Corpuscular HGB Conc 32.8 g/dL (30.0-36.0); Mean Corpuscular Volume 97.7 fL (80-94); Mean Platelet Volume 10.7 fL (7.4-10.4); Monocytes # 0.4 10^3/uL (0.2-0.9); Monocytes % 8.3 %; Neutrophils # 2.86 10^3/uL (1.8-7.7); Neutrophils % 53.8 %; Nucleated Red Blood Cells % 0 %; Platelet Count 139 10^3/cmm (130-400); Red Blood Count 3.84 10^6/uL (4.1-5.3); Red Cell Distribution Width 12.7 % (12.1-15.1); White Blood Count 5.3 10^3/uL (4.0-10.0)
[2020-07-04 23:01] LABS: Bilirubin Urine Neg (Negative); Blood Urine Neg (Negative); Glucose Urine UA Norm (Normal); Ketones Urine Negative (Negative); Leukocyte Esterase Urine Negative (Negative); Nitrate Urine Negative (Negative); Protein Urine Neg (Negative); Specific Gravity, Urine 1.015 (1.005-1.030); Squamous Epithelial Cell Urine 0-4 /hpf (0-5); Urine Appearance Clear (CLEAR); Urine Color Yellow (Yellow); Urobilinogen Urine Norm (Negative)
[2020-07-04 23:02] LABS: Add Urine Culture? No; Bacteria Urine TRACE /hpf
[2020-07-04 23:04] LABS: Alanine Aminotransferase 14 U/L (0-41); Albumin Level 4.2 g/dL (3.5-5.2); Alkaline Phosphatase 71 IU/L (40-130); Anion Gap 12.6 (5-19); Aspartate Amino Transferase 21 U/L (0-40); Blood Urea Nitrogen 24 mg/dL (8-23); Calcium 8.8 mg/dL (8.5-10.5); Carbon Dioxide 28 mmol/L (22-29); Chloride 103 mmol/L (98-107); Globulin 1.8 g/dL (1.3-4.6); Glucose 151 mg/dL (65-115); Osmolality Calculated 295 mOsm/kg (285-295); Potassium 4.6 mmol/L (3.5-5.1); Sodium 139 mmol/L (136-145); Total Bilirubin 0.4 mg/dL (0.15-1.2)
[2020-07-04 23:10] VITALS: BP 121/60; PULSE 70; RESP 16; O2SAT 96
[2020-07-04] MEDS: iodixanol 320 mg/mL 100mL Btl IV (23:57)
[2020-07-05 00:32] VITALS: BP 115/51; PULSE 67; RESP 14; O2SAT 94
[2020-07-05] MEDS: levoFLOXacin 750 mg Tablet PO (00:41)
== END 2020-07-05 01:00 | disposition home or self-care (01) ==
PROVIDERS: Emergency Provider Emergency Medicine
DX: N45.1 Epididymitis (principal); Z87.891 Personal history of nicotine dependence
CPT/HCPCS: 12345; 74177; 76870; 80053; 81001; 85025; 96374; 96375; 99283; J2270; J2405; Q9967

== ENCOUNTER → 2020-07-10 14:08 | Outpatient (BNVA) | payer OTHER, SELFPAY | PROVIDERS: Visit Provider Podiatrist Foot & Ankle Surgery | DX: M21.072 Valgus deformity, not elsewhere classified, left ankle (principal) | CPT/HCPCS: 73630 ==

== ENCOUNTER → 2021-03-22 10:36 | Outpatient (BNVA) | payer OTHER, SELFPAY | PROVIDERS: Visit Provider Internal Medicine Rheumatology | DX: M15.9 Polyosteoarthritis, unspecified (principal); Z11.59 Encounter for screening for other viral diseases; Z79.899 Other long term (current) drug therapy; M21.41 Flat foot [pes planus] (acquired), right foot; M21.42 Flat foot [pes planus] (acquired), left foot; Z96.651 Presence of right artificial knee joint; Z85.820 Personal history of malignant melanoma of skin; Z89.021 Acquired absence of right finger(s); Z89.022 Acquired absence of left finger(s); Z71.89 Other specified counseling | CPT/HCPCS: 99204; 99214 ==

== ENCOUNTER → 2021-06-18 14:44 | Outpatient (BNVA) | payer OTHER, SELFPAY | PROVIDERS: PCP Family Medicine; Visit Provider Internal Medicine Rheumatology | DX: M15.9 Polyosteoarthritis, unspecified (principal); Z79.899 Other long term (current) drug therapy; M21.42 Flat foot [pes planus] (acquired), left foot; M21.41 Flat foot [pes planus] (acquired), right foot; Z96.651 Presence of right artificial knee joint; Z89.022 Acquired absence of left finger(s); Z89.021 Acquired absence of right finger(s); Z71.89 Other specified counseling; Z87.891 Personal history of nicotine dependence | CPT/HCPCS: 99214 ==

== ENCOUNTER → 2021-12-25 13:19 | Outpatient (BNVA) | payer OTHER, SELFPAY | PROVIDERS: PCP Family Medicine; Visit Provider Internal Medicine Rheumatology | DX: M15.9 Polyosteoarthritis, unspecified (principal); Z79.899 Other long term (current) drug therapy; Z89.022 Acquired absence of left finger(s); Z89.021 Acquired absence of right finger(s); M21.42 Flat foot [pes planus] (acquired), left foot; M21.41 Flat foot [pes planus] (acquired), right foot; Z96.651 Presence of right artificial knee joint; Z71.89 Other specified counseling | CPT/HCPCS: 36415; 73130; 73630; 80076; 82565; 85025; 85651; 86140; 86200; 86431; 99214 ==

== ENCOUNTER → 2022-01-02 14:02 | Outpatient (BNVA) | payer OTHER, SELFPAY | PROVIDERS: PCP Family Medicine; Visit Provider Podiatrist Foot & Ankle Surgery | DX: M79.672 Pain in left foot (principal); Z87.76 Personal history of (corrected) congenital malformations of integument, limbs and musculoskeletal system; L84 Corns and callosities; Z87.891 Personal history of nicotine dependence | CPT/HCPCS: 99213; 99214 ==

== ENCOUNTER 2022-02-08 14:35 | Emergency (ER) | payer OTHER, SELFPAY ==
[2022-02-08 15:43] VITALS: BP 116/69; PULSE 95; RESP 16; TEMP 37.3; O2SAT 94; BMI 23.7
--- NOTE | 2022-02-08 17:06 | XRR_ITS ---
PROCEDURE INFORMATION: Exam: XR Abdomen Exam date and time: 02/08/2022 5:25 PM Age: 81 years old Clinical indication: Abdominal pain; Generalized; Additional info: Constipation TECHNIQUE: Imaging protocol: XR of the abdomen. Views: Frontal supine view of the abdomen. 1 View. COMPARISON: CT abdomen pelvis w con* [id number] 07/04/2020 11:51 PM FINDINGS: Gastrointestinal tract: Normal. No bowel dilation. Organs: Prostate gland radiation treatment seeds. 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 Moderate osteoarthritis of the hips bilaterally. XR/XR abdomen 1V* [id number] IMPRESSION: 1. Negative for bowel dilation or significant constipation. 2. Lumbar spine levoscoliosis with multilevel degenerative disc space disease. 3. Prostate gland radiation treatment seeds. 4. Moderate osteoarthritis of the hips bilaterally.
--- NOTE | 2022-02-08 17:16 | W.ED.GENADLT ---
HPI - General Adult General: Chief complaint: General Medical Stated complaint: hasn't had a bowel movement in a few days Time Seen by Provider: 02/08/22 16:48 History of Present Illness: Patient comes in with constipation. States he has not had a bowel movement in 2 weeks. States he does have some mild pain in his left lower abdomen. Associated symptoms: Deny chest pain, dyspnea, headache(s), nausea, rash, palpitations or vomiting Review of Systems Const: Denies: fever(s) or body aches Eyes: Denies: change in vision or blurry vision ENMT: Denies: throat pain or odynophagia Card: Denies: chest pain or palpitations Resp: Denies: dyspnea or productive cough GI: Reports: abdominal pain and constipation; Denies: nausea or vomiting : Denies: flank pain or dysuria Musc: Denies: neck pain or back pain Skin/Breast: Denies: rash or pruritus Neuro: Denies: headache(s) or numbness in extremities Psych: Denies: anxiety or change in appetite Endo: Denies: polyuria or excessive sweating PFSH ED PFSH: Medical History Bipolar disorder Chronic obstructive pulmonary disease Dactylitis of toe Depression High risk medication use History of malignant melanoma Immunization counseling Inflammatory arthritis Macular degeneration Osteoarthritis, 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 Mother Lung disease Social History Smoking and tobacco status: former smoker Quit status (tobacco): has quit using tobacco Year quit tobacco: 1969 - 3 PPD x 25 Years Alcohol intake: former Year of sobriety/quit date alcohol: 1989 Caregiver/support person: Yes Lives independently: Yes Household members: caregiver Current occupational status: retired and disabled History of recent travel: No Current gender identity: Male Physical Exam Const: COMMON NORMALS: no acute distress, patient oriented x3, healthy appearing and alert HENMT: COMMON NORMALS: normocephalic and atraumatic HEAD & SCALP: normocephalic and atraumatic Eye: COMMON NORMALS: Equal, round and reactive pupils present and EOMs intact bilaterally PUPIL: Yes Equal, round and reactive pupils present Neck/C-Spine: COMMON NORMALS: full ROM and supple Resp: COMMON NORMALS: normal respiratory effort, No retractions and No use of accessory muscles Cardio: COMMON NORMALS: regular rate and regular rhythm RATE: regular rate RHYTHM: regular rhythm GI: COMMON NORMALS: Normal to inspection, nondistended, normoactive bowel sounds present, Soft to palpation and non-tender PALPATION: Yes Soft to palpation Back/Pelvis: COMMON NORMALS: thoracic and lumbar spine normal to inspection and no thoracic nor lumbar tenderness Extremity: COMMON NORMALS: normal to inspection and full ROM Neuro: COMMON NORMALS: patient oriented x3 SENSORIUM/ORIENTATION: Yes alert Psych: COMMON NORMALS: mental status grossly normal and cooperative Skin: COMMON NORMALS: no rashes or lesions noted and no wounds GENERAL SKIN EXAM: no rashes or lesions noted Course Vital Signs: Vital signs: Vital Signs Temperature 99.1 F 02/08/22 15:43 Pulse Rate 95 02/08/22 15:43 Respiratory Rate 16 02/08/22 15:43 Blood Pressure 116/69 02/08/22 15:43 Pulse Oximetry 94 02/08/22 15:43 [facility] - General Adult Medical Decision Making Patient comes in with constipation. States he has not had a bowel movement in 2 weeks. States he does have some mild pain in his left lower abdomen. On physical exam his abdomen is soft, nontender, nondistended. He denies fever, vomiting, or other symptoms. Will check x-ray, and reassess. On reassessment I talked to the patient about the test results. Pt states that he has miralax at home and will increase the dose. will d/c home at this time with precautions to return for worsening or changing symptoms. Lab Data Radiology Impressions Abdomen X-Ray 02/08/22 17:06 IMPRESSION: 1. Negative for bowel dilation or significant constipation. 2. Lumbar spine levoscoliosis with multilevel degenerative disc space disease. 3. Prostate gland radiation treatment seeds. 4. Moderate osteoarthritis of the hips bilaterally. Discharge Plan Discharge Patient Disposition: Home Clinical Impression: Constipation Condition: Stable Prescriptions: No Action sertraline [Zoloft] 25 mg tablet 200 mg PO DAILY 0RF trazodone 100 mg tablet 150 mg PO BEDTIME PRN (Reason: Sleep) 0RF albuterol sulfate 2.5 mg /3 mL (0.083 %) solution for nebulization 2.5 mg INHALATION Q4H PRN (Reason: Shortness Of Breath) 0RF brimonidine 0.15 % drops 1 drp ophthalmic (eye) BID 0RF ipratropium bromide 17 mcg/actuation HFA aerosol inhaler 2 puff inhalation QID 0RF montelukast 10 mg tablet 10 mg PO DAILY 0RF leflunomide 20 mg tablet 20 mg PO DAILY Qty: 90 1RF prednisone 2.5 mg tablet 7.5 mg PO DAILY 90 Days Qty: 270 1RF albuterol sulfate 90 mcg/actuation Hfa Aerosol Inhaler 1 inh INHALATION QID PRN (Reason: Shortness Of Breath) 0RF ketoconazole 2 % Shampoo 1 applic TOPICAL DAILY 0RF ascorbic acid (vitamin C) 500 mg Tablet 500 mg PO DAILY 0RF vitamin B complex Tablet 1 tab PO DAILY 0RF hydrocortisone 2.5 % Cream 1 applic TOPICAL BID PRN (Reason: prn) 0RF prazosin 2 mg Capsule 4 mg PO BEDTIME 0RF cholecalciferol (vitamin D3) 2,000 unit Tablet 1,000 unit PO DAILY 0RF fluticasone propionate 50 mcg/actuation Blister With Device 1 inh INHALATION BID 0RF lisinopril 20 mg Tablet 20 mg PO DAILY 0RF travoprost 0.004 % Drops 1 drp OPHTHALMIC (EYE) QPM 0RF amlodipine 2.5 mg Tablet 2.5 mg PO DAILY 0RF meloxicam 7.5 mg Tablet 7.5 mg PO DAILY 0RF lidocaine 5 % Adhesive Patch,Medicated 1 patch TOPICAL DAILY 0RF Rx Instructions: leave on most painful area for up to 12 hrs Miralax 17 gram/dose Powder 4 g PO DAILY 0RF Flonase 50 mcg/actuation [place],Suspension 1 spray INTRANASAL DAILY 0RF Rx Instructions: administer into each nostril loratadine 10 mg Tablet 10 mg PO DAILY 0RF aripiprazole 20 mg Tablet 20 mg PO DAILY 0RF Discharge Orders: Discharge ED (Routine); Ordered 02/08/22 Ordered By: Jose Olmedo Referrals: Regina Morales MD [Primary Care Provider] - Coding Level of Care Code ED Occupational Nurse for Chg Fwd Exam Comprehensive
--- NOTE | 2022-02-08 17:18 | PC.PHAR ---
PT UNABLE TO VERIFY MEDICATIONS- MEDS VERIFIED USING [facility]
[2022-02-08 18:34] VITALS: BP 155/75; PULSE 82; RESP 15; O2SAT 95
[2022-02-08 18:36] VITALS: BP 155/75; PULSE 82; RESP 15; O2SAT 95
== END 2022-02-08 18:37 | disposition home or self-care (01) ==
PROVIDERS: Emergency Provider Emergency Medicine; PCP Family Medicine
DX: K59.00 Constipation, unspecified (principal)
CPT/HCPCS: 74018; 99283

== ENCOUNTER 2022-02-12 11:54 | Emergency (ER) | payer OTHER, SELFPAY ==
[2022-02-12 12:55] VITALS: BP 121/71; PULSE 80; RESP 18; TEMP 36.4; O2SAT 96; BMI 23.7
--- NOTE | 2022-02-12 13:06 | XRR_ITS ---
PROCEDURE INFORMATION: Exam: XR Abdomen Exam date and time: 02/12/2022 1:09 PM Age: 81 years old Clinical indication: Abdominal pain; Generalized; Additional info: Abd pain TECHNIQUE: Imaging protocol: XR of the abdomen. Views: Frontal supine view of the abdomen. 1 View. COMPARISON: CR (ABDOMEN, ) 02/08/2022 5:25 PM FINDINGS: Tubes, catheters and devices: Prostate brachytherapy seeds noted. Gastrointestinal tract: Nonobstructive bowel gas pattern. Organs: Cholecystectomy clips project over the right upper quadrant. Bones/joints: Mild levocurvature of the spine and multilevel degenerative changes seen. XR/XR KUB [id number] IMPRESSION: Nonobstructive bowel gas pattern.
--- NOTE | 2022-02-12 13:21 | ED_ITS ---
HPI - Abdominal Pain General: Chief Complaint: Abdominal Pain Stated Complaint: Says he still has a blockage Time Seen by Provider: 02/12/22 13:06 Source: patient Mode of arrival: ambulatory Limitations: no limitations History of Present Illness: 81-year-old male comes in complaining of abdominal discomfort. He is not been able to have a bowel movement. No vomiting no diarrhea no dysuria urgency frequency medic easy melena hematemesis. No fever sweats chills no chest pain. Patient has used some MiraLAX with no results. MD elicited complaint: abdominal pain Pertinent past history: constipation Onset (ago): week(s) Pain Consistency: intermittent Location: Diffuse Severity: mild Quality: cramping Radiation: none Exacerbating factors: nothing Relieving factors: nothing Associated Symptoms: Reports change in bowel habits, constipation and GI cramping; Denies anorexia, belching, bloating, change in stool character, chills, coffee ground emesis, diarrhea, dyspepsia, dysuria, excessive flatus, fever(s), heartburn, hematochezia, hematuria, hematemesis, fecal incontinence, loose stools, melena, nausea, poor appetite, syncope and vomiting Review of Systems Const: Denies: fever(s) or chills ENMT: Denies: throat pain, ear or mastoid pain, nasal discharge or nasal congestion Card: Denies: chest pain or syncope Resp: Denies: dyspnea, productive cough or non-productive cough GI: Reports: abdominal pain, constipation, GI cramping and change in bowel habits; Denies: nausea, vomiting, hematemesis, coffee ground emesis, heartburn, diarrhea, bloating, belching, excessive flatus, fecal incontinence, change in stool character, hematochezia or melena : Denies: flank pain, difficulty urinating, dysuria, urinary frequency, urinary urgency or hematuria Skin/Breast: Denies: rash or pruritus PFSH ED PFSH: Medical History Bipolar disorder Chronic obstructive pulmonary disease Dactylitis of toe Depression High risk medication use History of malignant melanoma Immunization counseling Inflammatory arthritis Macular degeneration Osteoarthritis, 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 date alcohol: 1989 Caregiver/support person: Yes Lives independently: Yes Household members: caregiver Current occupational status: retired and disabled History of recent travel: No Current gender identity: Male Physical Exam Const: COMMON NORMALS: no acute distress GENERAL APPEARANCE: cooperative and comfortable ORIENTATION/CONSCIOUSNESS: Yes awake, Yes oriented to person, Yes oriented to place and Yes oriented to time HENMT: COMMON NORMALS: normocephalic, atraumatic and hearing grossly normal bilaterally HEAD & SCALP: normocephalic and atraumatic Neck/C-Spine: COMMON NORMALS: no JVD Resp: COMMON NORMALS: normal respiratory effort, No retractions, No use of accessory muscles and clear to auscultation bilaterally AUSCULTATION: clear to auscultation bilaterally Cardio: COMMON NORMALS: no JVD, regular rate, regular rhythm and No murmurs present (Cardio) RATE: regular rate RHYTHM: regular rhythm GI: COMMON NORMALS: Soft to palpation and No hepatosplenomegaly present AUSCULTATION: Yes normoactive bowel sounds PALPATION: Yes Soft to palpation, No Tenderness to palpation present (GI), No Guarding due to palpation present (GI) and Yes No hepatosplenomegaly present Extremity: COMMON NORMALS: normal to inspection, capillary refill normal, no clubbing, cyanosis or edema, no calf tenderness and no pedal edema Neuro: SENSORIUM/ORIENTATION: Yes oriented to person, Yes oriented to place and Yes oriented to time Skin: COMMON NORMALS: no rashes or lesions noted GENERAL SKIN EXAM: no rashes or lesions noted Course Vital Signs: Vital signs: Vital Signs Temperature 97.6 F 02/12/22 12:55 Pulse Rate 75 02/12/22 14:09 Respiratory Rate 18 02/12/22 14:09 Blood Pressure 147/79 02/12/22 14:09 Pulse Oximetry 98 02/12/22 14:09 MDM - Abdominal Pain Medical Decision Making Physical exam unremarkable no emergent process present at this time will discharge home encourage use mag citrate to relieve constipation follow-up with primary care doctor. Patient states he has had a colonoscopy within the last 2 years was told it was normal. Medical Records I reviewed the patient's medical records. Lab Data I reviewed the patient's lab results. : 02/12/22 13:30 02/12/22 13:30 Labs/Radiology: Radiology Impressions KUB X-Ray 02/12/22 13:06 IMPRESSION: Nonobstructive bowel gas pattern. Laboratory Results WBC 6.6 10^3/uL (4.0-10.0) 02/12/22 13:30 RBC 3.88 10^6/uL (4.1-5.3) L 02/12/22 13:30 Hgb 12.0 g/dL (11.7-16.6) 02/12/22 13:30 Hct 35.6 % (42.0-52.0) L 02/12/22 13:30 MCV 91.8 fl (80-94) 02/12/22 13:30 MCH 30.9 pg (28.0-34.0) 02/12/22 13:30 MCHC 33.7 g/dL (30.0-36.0) 02/12/22 13:30 RDW 13.8 % (12.1-15.1) 02/12/22 13:30 Plt Count 150 10^3/cmm (130-400) 02/12/22 13:30 MPV 9.8 fL (7.4-10.4) 02/12/22 13:30 Neut % (Auto) 74.2 % 02/12/22 13:30 Lymph % (Auto) 17.6 % 02/12/22 13:30 [place] % (Auto) 7.1 % 02/12/22 13:30 Eos % (Auto) 0.5 % 02/12/22 13:30 Baso % (Auto) 0.3 % 02/12/22 13:30 Neut # (Auto) 4.92 10^3/uL (1.8-7.7) 02/12/22 13:30 Lymph # (Auto) 1.2 10^3/uL (0.8-4.8) 02/12/22 13:30 [place] # (Auto) 0.5 10^3/uL (0.2-0.9) 02/12/22 13:30 Eos # (Auto) 0.0 10^3/uL (0.0-0.8) 02/12/22 13:30 Baso # (Auto) 0.0 10^3/uL (0.0-0.1) 02/12/22 13:30 Nucleated RBC % (auto) 0 % 02/12/22 13:30 Nucleated RBCs # 0.0 /100WBC 02/12/22 13:30 Sodium 135 mmol/L (136-145) L 02/12/22 13:30 Potassium 4.9 mmol/L (3.5-5.1) 02/12/22 13:30 Chloride 96 mmol/L (98-107) L 02/12/22 13:30 Carbon Dioxide 29 mmol/L (22-29) 02/12/22 13:30 Anion Gap 14.9 (5-19) 02/12/22 13:30 BUN 15 mg/dL (8-23) 02/12/22 13:30 Creatinine 1.2 mg/dL (0.7-1.2) 02/12/22 13:30 GFR Calculation Not Reportable 02/12/22 13:30 Glucose 106 mg/dL (65-115) 02/12/22 13:30 Calculated Osmolality 281 mOsm/kg (285-295) L 02/12/22 13:30 Calcium 9.4 mg/dL (8.5-10.5) 02/12/22 13:30 Total Bilirubin 0.6 mg/dL (0.15-1.2) 02/12/22 13:30 AST 27 U/L (0-40) 02/12/22 13:30 ALT 15 U/L (0-41) 02/12/22 13:30 Alkaline Phosphatase 88 IU/L (40-130) 02/12/22 13:30 Total Protein 6.8 g/dL (6.6-8.7) 02/12/22 13:30 Albumin 4.5 g/dL (3.5-5.2) 02/12/22 13:30 Globulin 2.3 g/dL (1.3-4.6) 06/14/22 13:30 Discharge Plan Discharge Patient Disposition: Home Clinical Impression: Constipation Condition: Stable Prescriptions: New magnesium citrate Solution 150 ml PO BID PRN (Reason: constipation) Qty: 296 0RF No Action sertraline [Zoloft] 25 mg tablet 200 mg PO DAILY 0RF trazodone 100 mg tablet 150 mg PO BEDTIME PRN (Reason: Sleep) 0RF albuterol sulfate 2.5 mg /3 mL (0.083 %) solution for nebulization 2.5 mg INHALATION Q4H PRN (Reason: Shortness Of Breath) 0RF brimonidine 0.15 % drops 1 drp ophthalmic (eye) BID 0RF ipratropium bromide 17 mcg/actuation HFA aerosol inhaler 2 puff inhalation QID 0RF montelukast 10 mg tablet 10 mg PO DAILY 0RF leflunomide 20 mg tablet 20 mg PO DAILY Qty: 90 1RF prednisone 2.5 mg tablet 7.5 mg PO DAILY 90 Days Qty: 270 1RF albuterol sulfate 90 mcg/actuation Hfa Aerosol Inhaler 1 inh INHALATION QID PRN (Reason: Shortness Of Breath) 0RF ketoconazole 2 % Shampoo 1 applic TOPICAL DAILY 0RF ascorbic acid (vitamin C) 500 mg Tablet 500 mg PO DAILY 0RF vitamin B complex Tablet 1 tab PO DAILY 0RF hydrocortisone 2.5 % Cream 1 applic TOPICAL BID PRN (Reason: prn) 0RF prazosin 2 mg Capsule 4 mg PO BEDTIME 0RF cholecalciferol (vitamin D3) 2,000 unit Tablet 1,000 unit PO DAILY 0RF fluticasone propionate 50 mcg/actuation Blister With Device 1 inh INHALATION BID 0RF lisinopril 20 mg Tablet 20 mg PO DAILY 0RF travoprost 0.004 % Drops 1 drp OPHTHALMIC (EYE) QPM 0RF amlodipine 2.5 mg Tablet 2.5 mg PO DAILY 0RF meloxicam 7.5 mg Tablet 7.5 mg PO DAILY 0RF lidocaine 5 % Adhesive Patch,Medicated 1 patch TOPICAL DAILY 0RF Rx Instructions: leave on most painful area for up to 12 hrs Miralax 17 gram/dose Powder 4 g PO DAILY 0RF Flonase 50 mcg/actuation [place],Suspension 1 spray INTRANASAL DAILY 0RF Rx Instructions: administer into each nostril loratadine 10 mg Tablet 10 mg PO DAILY 0RF aripiprazole 20 mg Tablet 20 mg PO DAILY 0RF Discharge Orders: Discharge ED (Routine); Ordered 02/12/22 Ordered By: Luis Daniel Mcgee Referrals: Regina Morales MD [Primary Care Provider] - Discharge Diet: Advance as tolerated Discharge Activity: Resume usual activity Patient Instructions: Opioid Safety Activity Restrictions/Additional Instructions: Follow-up with your primary care doctor because you have problems with constipation. Coding Level of Care Code ED Tip Printer for Tori Saldana
[2022-02-12 13:44] LABS: Basophils % 0.3 %; Eosinophils % 0.5 %; Hematocrit 35.6 % (42.0-52.0); Lymphocytes # 1.2 10^3/uL (0.8-4.8); Lymphocytes % 17.6 %; Mean Corpuscular HGB Conc 33.7 g/dL (30.0-36.0); Mean Corpuscular Hemoglobin 30.9 pg (28.0-34.0); Mean Corpuscular Volume 91.8 fl (80-94); Mean Platelet Volume 9.8 fL (7.4-10.4); Monocytes # 0.5 10^3/uL (0.2-0.9); Monocytes % 7.1 %; Neutrophils # 4.92 10^3/uL (1.8-7.7); Neutrophils % 74.2 %; Nucleated Red Blood Cells % 0 %; Platelet Count 150 10^3/cmm (130-400); Red Blood Count 3.88 10^6/uL (4.1-5.3); Red Cell Distribution Width 13.8 % (12.1-15.1); White Blood Count 6.6 10^3/uL (4.0-10.0)
[2022-02-12 13:57] LABS: Add Urine Microscopic? NO; Charge for UA Resulting for Rev
[2022-02-12 14:00] LABS: Alanine Aminotransferase 15 U/L (0-41); Albumin Level 4.5 g/dL (3.5-5.2); Alkaline Phosphatase 88 IU/L (40-130); Anion Gap 14.9 (5-19); Aspartate Amino Transferase 27 U/L (0-40); Blood Urea Nitrogen 15 mg/dL (8-23); Calcium 9.4 mg/dL (8.5-10.5); Carbon Dioxide 29 mmol/L (22-29); Chloride 96 mmol/L (98-107); Globulin 2.3 g/dL (1.3-4.6); Glucose 106 mg/dL (65-115); Osmolality Calculated 281 mOsm/kg (285-295); Potassium 4.9 mmol/L (3.5-5.1); Sodium 135 mmol/L (136-145); Total Bilirubin 0.6 mg/dL (0.15-1.2); Total Protein 6.8 g/dL (6.6-8.7)
[2022-02-12 14:09] VITALS: BP 147/79; PULSE 75; RESP 18; O2SAT 98
[2022-02-12 14:53] LABS: Glucose Urine UA Norm (Normal); Protein Urine Neg (Negative); Urine Appearance Clear (CLEAR); Urine Color Yellow (Yellow); pH Urine 8 (5-7)
[2022-02-12 14:54] LABS: Bilirubin Urine Neg (Negative); Blood Urine Neg (Negative); Ketones Urine Negative (Negative); Leukocyte Esterase Urine Negative (Negative); Nitrate Urine Negative (Negative); Sulfosalicylic Acid Urine Negative (Negative); Urobilinogen Urine Norm (Negative)
== END 2022-02-12 14:10 | disposition home or self-care (01) ==
PROVIDERS: Emergency Provider Family Medicine; PCP Family Medicine
DX: K59.00 Constipation, unspecified (principal)
CPT/HCPCS: 74018; 80053; 81003; 85025; 99283

== ENCOUNTER 2022-02-26 15:39 | Emergency (ER) | payer OTHER, MEDICARE, SELFPAY ==
[2022-02-26 16:30] VITALS: BP 136/72; PULSE 78; RESP 15; TEMP 37; O2SAT 96; BMI 20.9
--- NOTE | 2022-02-26 16:38 | CTR_ITS ---
PROCEDURE INFORMATION: Exam: CT Abdomen And Pelvis Without Contrast Exam date and time: 02/26/2022 5:21 PM Age: 81 years old Clinical indication: Bloating and constipation; Additional info: Abdominal pain, reports constipation TECHNIQUE: Imaging protocol: Computed tomography of the abdomen and pelvis without contrast. Radiation optimization: All CT scans at this facility use at least one of these dose optimization techniques: automated exposure control; mA and/or kV adjustment per patient size (includes targeted exams where dose is matched to clinical indication); or iterative reconstruction. COMPARISON: CT abdomen pelvis w con* [id number] 07/04/2020 11:51 PM RADIATION DOSE METRICS: Total DLP (mGy-cm): 1242.09 FINDINGS: Lungs: There is peripheral bronchiectasis and subpleural reticular opacity and bronchial mucous plugging in the lung bases, suggesting chronic bronchitis which is progressive since 07/04/2020. Liver: The liver is normal. Gallbladder and bile ducts: There is no intrahepatic or extrahepatic bile duct dilation. The gallbladder is absent. Pancreas: There is mild atrophy of the pancreas. Spleen: The spleen is unremarkable. Adrenal glands: The adrenal glands are unremarkable. Kidneys and ureters: There is mild atrophy of both kidneys. There are tiny nonobstructive stones in both kidneys low measuring less than 2 mm. There is no hydronephrosis or ureteral dilation. Stomach and bowel: The stomach is unremarkable. The small bowel is nondilated. There is marked distal descending and sigmoid colonic diverticulosis without evidence of diverticulitis. Appendix: The appendix is normal. Intraperitoneal space: There is no intraperitoneal free air. Vasculature: There is moderate aortic atherosclerotic disease. Lymph nodes: There is no lymphadenopathy in the retroperitoneum, mesentery, pelvis or inguinal regions. Urinary bladder: The urinary bladder is unremarkable. Reproductive: There are brachytherapy seeds in the prostate. Bones/joints: There is severe multilevel degenerative disease in the lumbar spine. Mild broad-based convex left upper lumbar scoliosis.There is mild degenerative disease of both hips. The bony pelvis is intact. Soft tissues: The abdominal wall is intact. CT/CT abdomen pelvis wo con [id number] IMPRESSION: 1. No acute findings. 2. Severe distal descending and sigmoid colonic diverticulosis without evidence of diverticulitis. 3. Incidental findings above.
--- NOTE | 2022-02-26 17:09 | ED_ITS ---
HPI - Abdominal Pain General: Chief Complaint: Abdominal Pain Stated Complaint: cannot go to bathroom Time Seen by Provider: 02/26/22 16:38 History of Present Illness: 81-year-old male patient comes in today for complaints of left lower abdominal pain and watery stools. Patient states that he has had persistent watery stools. Patient states has been using mag citrate in order to have a good bowel movement because he feels like he needs one. Patient appears in no pain. Patient appears alert. 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 date alcohol: 1989 Caregiver/support person: Yes Lives independently: Yes Household members: caregiver Current occupational status: retired and disabled History of recent travel: No Current gender identity: Male Physical Exam Const: COMMON NORMALS: alert HENMT: COMMON NORMALS: atraumatic HEAD & SCALP: atraumatic Neck/C-Spine: COMMON NORMALS: full ROM Resp: COMMON NORMALS: normal respiratory effort and clear to auscultation bilaterally AUSCULTATION: clear to auscultation bilaterally Cardio: COMMON NORMALS: regular rate and regular rhythm RATE: regular rate RHYTHM: regular rhythm GI: COMMON NORMALS: Soft to palpation AUSCULTATION: Yes Hyperactive bowel sounds present PALPATION: Yes Soft to palpation Extremity: COMMON NORMALS: normal to inspection Neuro: SENSORIUM/ORIENTATION: Yes alert Skin: COMMON NORMALS: no rashes or lesions noted GENERAL SKIN EXAM: no rashes or lesions noted Course 2 Vital Signs: Vital signs: Vital Signs Temperature 98.6 F 02/26/22 16:30 Pulse Rate 78 02/26/22 16:30 Respiratory Rate 15 02/26/22 16:30 Blood Pressure 136/72 02/26/22 16:30 Pulse Oximetry 96 02/26/22 16:30 MDM - Abdominal Pain Medical Decision Making 81-year-old male patient comes in today with some left-sided abdominal pain and having the sensation of needing a bowel movement. On exam abdomen soft with hyperactive bowel sounds. Differential diagnosis includes bowel obstruction, gastroenteritis, diverticulitis. CT of the abdomen and pelvis noted no obstruction or significant constipation. Patient did have some diverticulosis without signs or evidence of diverticulitis. CBC was unremarkable and CMP was u nremarkable. Believe the patient probably has been using mag citrate routinely which is caused him to have watery diarrhea stools. Patient's dietary habits probably also is low in fiber causing no bulking of the stool which causes no good sensation of passing of stool. I recommend Metamucil 3 times a day 1 tablespoon at each serving. Encourage plenty of water and use MiraLAX as needed to prevent hard stools. Patient reported understanding of care plan need for follow-up or return to the ER. Lab Data : 02/26/22 16:45 02/26/22 16:45 Labs/Radiology: Radiology Impressions Abdomen/Pelvis CT 02/26/22 16:38 IMPRESSION: 1. No acute findings. 2. Severe distal descending and sigmoid colonic diverticulosis without evidence of diverticulitis. 3. Incidental findings above. Laboratory Results WBC 6.0 10^3/uL (4.0-10.0) 02/26/22 16:45 RBC 3.78 10^6/uL (4.1-5.3) L 02/26/22 16:45 Hgb 11.8 g/dL (11.7-16.6) 02/26/22 16:45 Hct 34.6 % (42.0-52.0) L 02/26/22 16:45 MCV 91.5 fl (80-94) 02/26/22 16:45 MCH 31.2 pg (28.0-34.0) 02/26/22 16:45 MCHC 34.1 g/dL (30.0-36.0) 02/26/22 16:45 RDW 14.1 % (12.1-15.1) 02/26/22 16:45 Plt Count 151 10^3/cmm (130-400) 02/26/22 16:45 MPV 10.5 fL (7.4-10.4) H 02/26/22 16:45 Neut % (Auto) 68.1 % 02/26/22 16:45 Lymph % (Auto) 21.4 % 02/26/22 16:45 Isabella % (Auto) 7.8 % 02/26/22 16:45 Eos % (Auto) 1.3 % 02/26/22 16:45 Baso % (Auto) 0.7 % 02/26/22 16:45 Neut # (Auto) 4.10 10^3/uL (1.8-7.7) 02/26/22 16:45 Lymph # (Auto) 1.3 10^3/uL (0.8-4.8) 02/26/22 16:45 Isabella # (Auto) 0.5 10^3/uL (0.2-0.9) 02/26/22 16:45 Eos # (Auto) 0.1 10^3/uL (0.0-0.8) 02/26/22 16:45 Baso # (Auto) 0.0 10^3/uL (0.0-0.1) 02/26/22 16:45 Nucleated RBC % (auto) 0 % 02/26/22 16:45 Nucleated RBCs # 0.0 /100WBC 02/26/22 16:45 Sodium 137 mmol/L (136-145) 02/26/22 16:45 Potassium 4.5 mmol/L (3.5-5.1) 02/26/22 16:45 Chloride 98 mmol/L (98-107) 02/26/22 16:45 Carbon Dioxide 30 mmol/L (22-29) H 02/26/22 16:45 Anion Gap 13.5 (5-19) 02/26/22 16:45 BUN 11 mg/dL (8-23) 02/26/22 16:45 Creatinine 1.2 mg/dL (0.7-1.2) 02/26/22 16:45 GFR Calculation Not Reportable 02/26/22 16:45 Glucose 106 mg/dL (65-115) 02/26/22 16:45 Calculated Osmolality 284 mOsm/kg (285-295) L 02/26/22 16:45 Calcium 8.9 mg/dL (8.5-10.5) 02/26/22 16:45 Total Bilirubin 0.2 mg/dL (0.15-1.2) 02/26/22 16:45 AST 16 U/L (0-40) 02/26/22 16:45 ALT 10 U/L (0-41) 02/26/22 16:45 Alkaline Phosphatase 89 IU/L (40-130) 02/26/22 16:45 Total Protein 6.1 g/dL (6.6-8.7) L 02/26/22 16:45 Albumin 4.1 g/dL (3.5-5.2) 02/26/22 16:45 Globulin 2.0 g/dL (1.3-4.6) 02/26/22 16:45 Lipase 59 U/L (13-60) 02/26/22 16:45 Discharge Plan Discharge Patient Disposition: Home Clinical Impression: 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 Condition: Stable Prescriptions: New Metamucil 3.4 gram/5.4 gram powder 1 tbsp PO TID Qty: 660 0RF Rx Instructions: mix into at least 8 oz of water or juice before administering Changed Miralax 17 gram/dose Powder 17 g PO DAILY Qty: 510 0RF Discontinued magnesium citrate Solution 150 ml PO BID PRN (Reason: constipation) Qty: 296 0RF No Action sertraline [Zoloft] 25 mg tablet 200 mg PO DAILY 0RF trazodone 100 mg tablet 150 mg PO BEDTIME PRN (Reason: Sleep) 0RF albuterol sulfate 2.5 mg /3 mL (0.083 %) solution for nebulization 2.5 mg INHALATION Q4H PRN (Reason: Shortness Of Breath) 0RF brimonidine 0.15 % drops 1 drp ophthalmic (eye) BID 0RF ipratropium bromide 17 mcg/actuation HFA aerosol inhaler 2 puff inhalation QID 0RF montelukast 10 mg tablet 10 mg PO DAILY 0RF leflunomide 20 mg tablet 20 mg PO DAILY Qty: 90 1RF prednisone 2.5 mg tablet 7.5 mg PO DAILY 90 Days Qty: 270 1RF albuterol sulfate 90 mcg/actuation Hfa Aerosol Inhaler 1 inh INHALATION QID PRN (Reason: Shortness Of Breath) 0RF ketoconazole 2 % Shampoo 1 applic TOPICAL DAILY 0RF ascorbic acid (vitamin C) 500 mg Tablet 500 mg PO DAILY 0RF vitamin B complex Tablet 1 tab PO DAILY 0RF hydrocortisone 2.5 % Cream 1 applic TOPICAL BID PRN (Reason: prn) 0RF prazosin 2 mg Capsule 4 mg PO BEDTIME 0RF cholecalciferol (vitamin D3) 2,000 unit Tablet 1,000 unit PO DAILY 0RF fluticasone propionate 50 mcg/actuation Blister With Device 1 inh INHALATION BID 0RF lisinopril 20 mg Tablet 20 mg PO DAILY 0RF travoprost 0.004 % Drops 1 drp OPHTHALMIC (EYE) QPM 0RF amlodipine 2.5 mg Tablet 2.5 mg PO DAILY 0RF meloxicam 7.5 mg Tablet 7.5 mg PO DAILY 0RF lidocaine 5 % Adhesive Patch,Medicated 1 patch TOPICAL DAILY 0RF Rx Instructions: leave on most painful area for up to 12 hrs Flonase 50 mcg/actuation [place],Suspension 1 spray INTRANASAL DAILY 0RF Rx Instructions: administer into each nostril loratadine 10 mg Tablet 10 mg PO DAILY 0RF aripiprazole 20 mg Tablet 20 mg PO DAILY 0RF Discharge Orders: Discharge ED (Routine); Ordered 02/26/22 Ordered By: Trenton Chang Referrals: Regina Morales MD [Primary Care Provider] - Discharge Diet: Usual diet Discharge Activity: Increase activity as tolerated Patient Instructions: High Fiber Diet (ED) Activity Restrictions/Additional Instructions: Stop mag citrate. Take Metamucil 1 dose with 8 ounces of water 3 times a day. Eat a healthy diet with plenty of fresh fruits and vegetables, whole grains, and protein. Use MiraLAX 17 g with 8 ounces of water once daily. Do not use any other laxatives. Make sure to drink 1-1/2 L of water a day. Follow-up with your primary care for further instruction. Return to ER for new concerns such as fever greater than 100.4, blood in vomit or stool, or uncontrolled abdominal pain. Coding Level of Care Code ED Overcoil Stepper for Chg Fwd Exam Comprehensive
[2022-02-26 17:27] LABS: Basophils % 0.7 %; Eosinophils # 0.1 10^3/uL (0.0-0.8); Eosinophils % 1.3 %; Hematocrit 34.6 % (42.0-52.0); Hemoglobin 11.8 g/dL (11.7-16.6); Lymphocytes # 1.3 10^3/uL (0.8-4.8); Lymphocytes % 21.4 %; Mean Corpuscular HGB Conc 34.1 g/dL (30.0-36.0); Mean Corpuscular Hemoglobin 31.2 pg (28.0-34.0); Mean Corpuscular Volume 91.5 fl (80-94); Mean Platelet Volume 10.5 fL (7.4-10.4); Monocytes # 0.5 10^3/uL (0.2-0.9); Monocytes % 7.8 %; Neutrophils % 68.1 %; Nucleated Red Blood Cells % 0 %; Platelet Count 151 10^3/cmm (130-400); Red Blood Count 3.78 10^6/uL (4.1-5.3); Red Cell Distribution Width 14.1 % (12.1-15.1)
[2022-02-26 17:51] LABS: Alanine Aminotransferase 10 U/L (0-41); Albumin Level 4.1 g/dL (3.5-5.2); Alkaline Phosphatase 89 IU/L (40-130); Anion Gap 13.5 (5-19); Aspartate Amino Transferase 16 U/L (0-40); Blood Urea Nitrogen 11 mg/dL (8-23); Calcium 8.9 mg/dL (8.5-10.5); Carbon Dioxide 30 mmol/L (22-29); Chloride 98 mmol/L (98-107); Glucose 106 mg/dL (65-115); Lipase 59 U/L (13-60); Osmolality Calculated 284 mOsm/kg (285-295); Potassium 4.5 mmol/L (3.5-5.1); Sodium 137 mmol/L (136-145); Total Bilirubin 0.2 mg/dL (0.15-1.2); Total Protein 6.1 g/dL (6.6-8.7)
== END 2022-02-26 18:34 | disposition home or self-care (01) ==
PROVIDERS: Physician Assistant; Emergency Provider Nurse Practitioner Family; PCP Family Medicine
DX: K52.1 Toxic gastroenteritis and colitis (principal); T47.4X5A Adverse effect of other laxatives, initial encounter; F55.2 Abuse of laxatives; Z85.820 Personal history of malignant melanoma of skin; Z87.891 Personal history of nicotine dependence
CPT/HCPCS: 74176; 80053; 83690; 85025; 99283

== ENCOUNTER → 2022-04-16 14:14 | Outpatient (BNVA) | payer OTHER, SELFPAY | PROVIDERS: PCP Family Medicine; Visit Provider Internal Medicine Rheumatology | DX: M15.9 Polyosteoarthritis, unspecified (principal); Z79.899 Other long term (current) drug therapy; Z71.89 Other specified counseling; Z96.651 Presence of right artificial knee joint; Z89.022 Acquired absence of left finger(s); Z89.021 Acquired absence of right finger(s); M21.42 Flat foot [pes planus] (acquired), left foot; M21.41 Flat foot [pes planus] (acquired), right foot | CPT/HCPCS: 99214 ==

== ENCOUNTER → 2022-04-23 14:22 | Outpatient (BNVA) | payer OTHER, SELFPAY | PROVIDERS: PCP Family Medicine; Visit Provider Podiatrist Foot & Ankle Surgery | DX: L60.3 Nail dystrophy (principal); Z87.76 Personal history of (corrected) congenital malformations of integument, limbs and musculoskeletal system; L84 Corns and callosities | CPT/HCPCS: 99213 ==

== ENCOUNTER → 2022-07-16 14:13 | Outpatient (BNVA) | payer OTHER, SELFPAY | PROVIDERS: PCP Family Medicine; Visit Provider Internal Medicine Rheumatology | DX: M15.9 Polyosteoarthritis, unspecified (principal); Z79.899 Other long term (current) drug therapy; Z71.89 Other specified counseling; Z96.651 Presence of right artificial knee joint; Z89.022 Acquired absence of left finger(s); Z89.021 Acquired absence of right finger(s); M21.42 Flat foot [pes planus] (acquired), left foot; M21.41 Flat foot [pes planus] (acquired), right foot | CPT/HCPCS: 80076; 82565; 85025; 86140; 99214 ==

== ENCOUNTER → 2022-11-28 14:03 | Outpatient (BNVA) | payer OTHER, SELFPAY | PROVIDERS: PCP Family Medicine; Visit Provider Internal Medicine Rheumatology | DX: M15.9 Polyosteoarthritis, unspecified (principal); Z79.899 Other long term (current) drug therapy; Z71.89 Other specified counseling; Z79.52 Long term (current) use of systemic steroids | CPT/HCPCS: 36415; 72072; 72100; 73030; 80076; 82565; 85025; 86140; 99214 ==

== ENCOUNTER 2023-02-10 12:03 | Emergency (ER) | payer OTHER, SELFPAY ==
[2023-02-10 12:05] VITALS: BP 117/52; PULSE 72; RESP 18; TEMP 36.3; O2SAT 95
--- NOTE | 2023-02-10 12:12 | XR_ITS ---
WS: [id number] PORTABLE CHEST HISTORY: dyspnea/cough COMPARISON: 12/07/2019 No pneumonia. Minimal atelectasis at the lung bases from poor inspiration. No pleural effusion or pne umothorax. Cardiac size: Normal. Mediastinum/Aorta: Mild atherosclerosis aorta. Moderate RIGHT curvature thoracic spine. XR/XR chest 1V portable [id number] IMPRESSION: 1. No pneumonia. 2. Mild atherosclerosis aorta. 3. Minimal bibasilar atelectasis.
[2023-02-10] MEDS: sodium chloride 0.9% 1,000 ML 999 ML IV ×2 (12:18→14:08)
[2023-02-10] MEDS: ondansetron 2 mg/ML SDV 2 mL 4 MG IVP (12:18)
[2023-02-10 12:19] LABS: Basophils % 0.5 %; Eosinophils # 0.1 10^3/uL (0.0-0.8); Eosinophils % 1.5 %; Hematocrit 34.5 % (42.0-52.0); Hemoglobin 10.8 g/dL (11.7-16.6); Lymphocytes # 1.4 10^3/uL (0.8-4.8); Lymphocytes % 15.4 %; Mean Corpuscular HGB Conc 31.3 g/dL (30.0-36.0); Mean Corpuscular Hemoglobin 28.6 pg (28.0-34.0); Mean Corpuscular Volume 91.3 fl (80-94); Mean Platelet Volume 9.4 fL (7.4-10.4); Monocytes # 0.7 10^3/uL (0.2-0.9); Monocytes % 8.1 %; Neutrophils # 6.54 10^3/uL (1.8-7.7); Neutrophils % 73.8 %; Nucleated Red Blood Cells % 0 %; Platelet Count 198 10^3/cmm (130-400); Red Blood Count 3.78 10^6/uL (4.1-5.3); Red Cell Distribution Width 14.7 % (12.1-15.1); White Blood Count 8.9 10^3/uL (4.0-10.0)
--- NOTE | 2023-02-10 12:28 | W.ED.WEAKNES ---
HPI - Weakness General: Chief complaint: Weakness Stated complaint: weakness/ abd pain Time Seen by Provider: 02/10/23 12:12 Source: patient Mode of arrival: EMS History of Present Illness: 82-year-old male presents emergency room complaining of generalized weakness nausea and diarrhea. He said the scar for the last 2 days. 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 4 stools very loose sometimes watery. He denies dysuria urgency or frequency he has not had a fever that is noted but he is not monitoring his temperature. Denies any chest pain. Has abdominal pain refers to the periumbilical region. MD Complaint: generalized weakness Onset (ago): day(s) (2) Duration: constant Severity: mild Relieving factors: none Exacerbating factors: none Associated symptoms: Denies chest pain, chills, confusion, decreased appetite, diaphoresis, dysuria, easy bruising, fever(s), headache(s), myalgias, nausea, rash, short of breath, syncope or vomiting Review of Systems Const: Denies: fever(s), chills, fatigue, malaise or diaphoresis ENMT: Denies: throat pain, ear or mastoid pain, nasal discharge or nasal congestion Card: Denies: chest pain, palpitations, irregular heart rhythm, lightheadedness or syncope Resp: Denies: dyspnea, productive cough or non-productive cough GI: Reports: abdominal pain and diarrhea; Denies: nausea or vomiting : Denies: dysuria, urinary frequency or urinary urgency Skin/Breast: Denies: rash or pruritus Neuro: Denies: headache(s) or confusion Danilo/Lymph: Denies: easy bruising PFSH ED PFSH: Medical History Bipolar disorder Chronic obstructive pulmonary disease Dactylitis of toe Depression High risk medication use History of malignant melanoma Immunization counseling Inflammatory arthritis Macular degeneration Osteoarthritis, 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 date alcohol: 1989 Substance/Drug Use: never Caregiver/support person: Yes Lives independently: Yes Household members: caregiver Current occupational status: retired and disabled Do you think of yourself as: Straight/Heterosexual Current gender identity: Male Physical Exam Const: GENERAL APPEARANCE: cooperative and comfortable ORIENTATION/CONSCIOUSNESS: Yes awake, Yes oriented to person, Yes oriented to place and Yes oriented to time HENMT: COMMON NORMALS: normocephalic, atraumatic and hearing grossly normal bilaterally HEAD & SCALP: normocephalic and atraumatic Resp: COMMON NORMALS: normal respiratory effort, No retractions, No use of accessory muscles and clear to auscultation bilaterally AUSCULTATION: clear to auscultation bilaterally Cardio: COMMON NORMALS: regular rate, regular rhythm and No murmurs present (Cardio) RATE: regular rate RHYTHM: regular rhythm GI: COMMON NORMALS: Soft to palpation and No hepatosplenomegaly present AUSCULTATION: Yes normoactive bowel sounds PALPATION: Yes Soft to palpation, No Tenderness to palpation present (GI), No Guarding due to palpation present (GI) and Yes No hepatosplenomegaly present Extremity: COMMON NORMALS: normal to inspection, capillary refill normal, no clubbing, cyanosis or edema, no calf tenderness and no pedal edema Neuro: SENSORIUM/ORIENTATION: Yes oriented to person, Yes oriented to place and Yes oriented to time Skin: COMMON NORMALS: no rashes or lesions noted GENERAL SKIN EXAM: no rashes or lesions noted Course Vital Signs: Vital signs: Vital Signs Temperature 97.4 F L 02/10/23 12:05 Pulse Rate 82 02/10/23 15:13 Respiratory Rate 16 02/10/23 15:13 Blood Pressure 125/72 02/10/23 15:13 Pulse Oximetry 93 02/10/23 15:13 Oxygen Delivery Me thod Room Air 02/10/23 12:05 MDM - Weakness Medical Decision Making Labs and imaging reviewed. He does have a mild anemia and mild hyponatremia however both of these are chronic and not acute changes. Creatinine is 1.4 but this is also at his baseline. I do not believe at this point he has anything acute requiring inpatient care. He should monitor his blood sugars closely clinical diet for next 24 to 48 hours and advance as tolerated fizzing worsening or change symptoms or develops any medic easy return to the emergency room. Medical Records I reviewed the patient's medical records. Lab Data I reviewed the patient's lab results. 02/10/23 12:12 02/10/23 12:12 Radiology Impressions Chest X-Ray 02/10/23 12:12 IMPRESSION: 1. No pneumonia. 2. Mild atherosclerosis aorta. 3. Minimal bibasilar atelectasis. Laboratory Results WBC 8.9 10^3/uL (4.0-10.0) 02/10/23 12:12 RBC 3.78 10^6/uL (4.1-5.3) L 02/10/23 12:12 Hgb 10.8 g/dL (11.7-16.6) L 02/10/23 12:12 Hct 34.5 % (42.0-52.0) L 02/10/23 12:12 MCV 91.3 fl (80-94) 02/10/23 12:12 MCH 28.6 pg (28.0-34.0) 02/10/23 12:12 MCHC 31.3 g/dL (30.0-36.0) 02/10/23 12:12 RDW 14.7 % (12.1-15.1) 02/10/23 12:12 Plt Count 198 10^3/cmm (130-400) 02/10/23 12:12 MPV 9.4 fL (7.4-10.4) 02/10/23 12:12 Neut % (Auto) 73.8 % 02/10/23 12:12 Lymph % (Auto) 15.4 % 02/10/23 12:12 [place] % (Auto) 8.1 % 02/10/23 12: Eos % (Auto) 1.5 % 02/10/23 12:12 Baso % (Auto) 0.5 % 02/10/23 12:12 Neut # (Auto) 6.54 10^3/uL (1.8-7.7) 02/10/23 12:12 Lymph # (Auto) 1.4 10^3/uL (0.8-4.8) 02/10/23 12:12 [place] # (Auto) 0.7 10^3/uL (0.2-0.9) 02/10/23 12:12 Eos # (Auto) 0.1 10^3/uL (0.0-0.8) 02/10/23 12:12 Baso # (Auto) 0.0 10^3/uL (0.0-0.1) 02/10/23 12:12 Nucleated RBC % (auto) 0 % 02/10/23 12:12 Nucleated RBCs # 0.0 /100WBC 02/10/23 12:12 Sodium 131 mmol/L (136-145) L 02/10/23 12:12 Potassium 4.3 mmol/L (3.5-5.1) 02/10/23 12:12 Chloride 93 mmol/L (98-107) L 02/10/23 12:12 Carbon Dioxide 29 mmol/L (22-29) 02/10/23 12:12 Anion Gap 13.3 (5-19) 02/10/23 12:12 BUN 12 mg/dL (8-23) 02/10/23 12:12 Creatinine 1.4 mg/dL (0.7-1.2) H 02/10/23 12:12 GFR Calculation Not Reportable 02/10/23 12:12 Glucose 111 mg/dL (65-115) 02/10/23 12:12 Calculated Osmolality 272 mOsm/kg (285-295) L 02/10/23 12:12 Calcium 8.8 mg/dL (8.5-10.5) 02/10/23 12:12 Total Bilirubin 0.5 mg/dL (0.15-1.2) 02/10/23 12:12 AST 22 U/L (0-40) 02/10/23 12:12 ALT 14 U/L (0-41) 02/10/23 12:12 Alkaline Phosphatase 76 U/L (40-130) 02/10/23 12:12 Creatine Kinase 43 U/L (39-308) 02/10/23 12:12 Total Protein 6.5 g/dL (6.6-8.7) L 02/10/23 12:12 Albumin 4.2 g/dL (3.5-5.2) 02/10/23 12:12 Globulin 2.3 g/dL (1.3-4.6) 02/10/23 12:12 Lipase 24 U/L (13-60) 02/10/23 12:12 Discharge Plan Discharge Patient Disposition: Home Clinical Impression: Diarrhea Condition: Stable Prescriptions: New ondansetron HCl 4 mg tablet 4 mg PO Q6H PRN (Reason: nausea and vomiting) Qty: 15 0RF No Action trazodone 100 mg tablet 150 mg PO BEDTIME PRN (Reason: Sleep) albuterol sulfate 2.5 mg /3 mL (0.083 %) solution for nebulization 2.5 mg INHALATION Q6H PRN (Reason: Shortness Of Breath) Rx Instructions: on hold on [employer] 02/10/23 brimonidine 0.15 % drops 1 drp ophthalmic (eye) BID ipratropium bromide 17 mcg/actuation HFA aerosol inhaler 2 puff inhalation QID montelukast 10 mg tablet 10 mg PO DAILY prednisone 5 mg tablet 5 mg PO DAILY Qty: 90 1RF tramadol 50 mg tablet 50 mg PO TID PRN (Reason: take for moderate to severe pain PRN) Qty: 60 1RF Humira Pen 40 mg/0.8 mL pen injector kit 40 mg SUBCUT Q14D Qty: 2 3RF albuterol sulfate 90 mcg/actuation Hfa Aerosol Inhaler 2 puff INHALATION QID PRN (Reason: Shortness Of Breath) ascorbic acid (vitamin C) 500 mg Tablet 500 mg PO DAILY vitamin B complex Tablet 1 tab PO QAM prazosin 2 mg Capsule 4 mg PO BEDTIME cholecalciferol (vitamin D3) 2,000 unit Tablet 2,000 unit PO DAILY lisinopril 20 mg Tablet 20 mg PO BEDTIME travoprost 0.004 % Drops 1 drp OPHTHALMIC (EYE) QPM amlodipine 2.5 mg Tablet 2.5 mg PO DAILY meloxicam 7.5 mg Tablet 7.5 mg PO DAILY fluticasone propionate [Flonase] 50 mcg/actuation [place],Suspension 1 spray INTRANASAL DAILY PRN (Reason: Allergy Symptoms) Rx Instructions: administer into each nostril loratadine 10 mg Tablet 10 mg PO DAILY vitamin E 670 mg (1,000 unit) Capsule 1 cap PO DAILY clotrimazole 10 mg Jorge 10 mg MUCOUS MEMBRANE 5XD nystatin 100,000 unit/mL Suspension See Rx Instructions .ROUTE .COMPLEX Rx Instructions: swish and swallow 10ml po tid for oral thrush levalbuterol HCl 0.63 mg/3 mL Solution For Nebulization 0.63 mg INHALATION QID PRN (Reason: copd) sertraline 100 mg Tablet 200 mg PO QAM folic acid 400 mcg Tablet 0.4 mg PO DAILY erythromycin 5 mg/gram (0.5 %) Ointment 1 applic OPHTHALMIC (EYE) BEDTIME omeprazole 20 mg Capsule,Delayed Release(Dr/Ec) 20 mg PO DAILY Rx Instructions: fl med list has 20mg daily and 40mg daily fluticasone propion-salmeterol 100-50 mcg/dose Blister With Device 1 inh INHALATION BID Maxitrol 3.5 mg/g-10,000 unit/g-0.1 % ointment See Rx Instructions .ROUTE .COMPLEX Rx Instructions: 1/4 inch on both eyes at bedtime Abilify 15 mg Tablet 15 mg PO DAILY witch wenceslao 50 % Pads, Medicated 1 pad TOPICAL DAILY PRN (Reason: Hemorrhoids) PreserVision AREDS-2 250-90-40-1 mg Capsule 1 tab PO BID vitamin A acetate 3,000 mcg (10,000 unit) Tablet, Sublingual 3,000 mcg PO DAILY sulfasalazine 500 mg tablet 500 mg PO BID Rx Instructions: give with food (meal/snack) omeprazole 40 mg capsule,delayed release(DR/EC) 40 mg PO QAM Discharge Orders: Discharge ED (Routine); Ordered 02/10/23 Ordered By: Luis Daniel Mcgee Referrals: Regina Morales MD [Primary Care Provider] - Discharge Diet: Usual diet Discharge Activity: Resume usual activity Patient Instructions: Opioid Safety, Pain Management Activity Restrictions/Additional Instructions: You are seen today for abdominal discomfort and diarrhea. Your white count was normal your hemoglobin is stable. Electrolytes are also stable liver functions were normal. Recommend clear liquid diet for the next 2 to 3 days use antiemetics as needed advance diet as tolerated Coding Level of Care Code ED Tripper for Tori Saldana
[2023-02-10 12:42] LABS: Alanine Aminotransferase 14 U/L (0-41); Albumin Level 4.2 g/dL (3.5-5.2); Alkaline Phosphatase 76 U/L (40-130); Anion Gap 13.3 (5-19); Aspartate Amino Transferase 22 U/L (0-40); Blood Urea Nitrogen 12 mg/dL (8-23); Calcium 8.8 mg/dL (8.5-10.5); Carbon Dioxide 29 mmol/L (22-29); Chloride 93 mmol/L (98-107); Creatine Phosphokinase 43 U/L (39-308); Globulin 2.3 g/dL (1.3-4.6); Glucose 111 mg/dL (65-115); Lipase 24 U/L (13-60); Osmolality Calculated 272 mOsm/kg (285-295); Potassium 4.3 mmol/L (3.5-5.1); Sodium 131 mmol/L (136-145); Total Bilirubin 0.5 mg/dL (0.15-1.2); Total Protein 6.5 g/dL (6.6-8.7)
--- NOTE | 2023-02-10 12:48 | ECG_ITS ---
[facility] Test Date: 2023-02-10 Pat Name: Glenn Kong Department: Room: Gender: Male Head Baker: : 1940 Requested By: Luis Daniel Benson Order Number: [id number] Tiki MD: Catherine Hadley M.D. Measurements Intervals [place] Rate: 76 P: 73 [place]: 190 QRS: -28 QRSD: 102 T: 64 QT: 405 QTc: 458 Interpretive Statements SINUS RHYTHM WITH FREQUENT VENTRICULAR PREMATURE COMPLEXES BORDERLINE LEFT AXIS DEVIATION [QRS AXIS < -20] ABNORMAL RHYTHM ECG Compared to ECG 12/07/2019 21:33:30 Ventricular premature complex(es) now present T-wave abnormality no longer present Electronically Signed On 02-10-2023 16:51:37 CDT by Catherine Hadley M.D. [id number]
--- NOTE | 2023-02-10 13:20 | PC.PHAR ---
pt states he has a home health nurse that sets his meds up every week pt states he is unsure of the name of the home health company-called [facility] [phone], [facility] [phone], [facility] [phone] all say they do not set up meds for the pt and mira [phone] (no answer)-medications entered are from the [place]ts [place] med [place]
[2023-02-10 13:34] VITALS: BP 115/69; PULSE 76; RESP 16; O2SAT 93
[2023-02-10 15:13] VITALS: BP 125/72; PULSE 82; RESP 16; O2SAT 93
== END 2023-02-10 15:15 | disposition home or self-care (01) ==
PROVIDERS: Emergency Provider Family Medicine; PCP Family Medicine
DX: R19.7 Diarrhea, unspecified (principal); Z87.891 Personal history of nicotine dependence; J44.9 Chronic obstructive pulmonary disease, unspecified; H35.30 Unspecified macular degeneration
CPT/HCPCS: 71045; 80048; 80053; 82550; 83690; 85025; 93005; 96361; 96374; 99285; J2405; J7030

== ENCOUNTER 2023-02-19 09:09 | Outpatient (CLI) | payer OTHER, SELFPAY ==
--- NOTE | 2023-02-19 09:33 | USCV_ITS ---
Glenn Kong Age: 82 Gender: M : 1940 Exam Date: 02/19/2023 10:01 Ordering Phys: Regina Morales MD Technologist: VANESSA Exam Location: [facility] [place] Indication: MURMUR BP: 125 / 62 HR: 72 Rhythm: Sinus Technical Quality: Adequate MEASUREMENTS (Male / Female) Normal Values 2D ECHO LVOT Diameter 2.0 cm LV Ejection Fraction MOD 2C 62.5 % LV Ejection Fraction 2C AL 63.6 % LA Diameter 3.5 cm LA Width 2.8 cm LA Height 5.0 cm RA Width 3.6 cm RA Height 4.7 cm Aorta at Sinotubular Diameter 2.5 cm IVC Diameter 1.5 cm M-MODE Aortic Annulus Diameter 2.3 cm LA Ao Ratio MM 1.4 MV E Point Septal Separation 0.4 cm DOPPLER AV Peak Velocity 330.8 cm/s LVOT Peak Velocity 108.0 cm/s AV Area Cont Eq vti 1.2 cm squared AV Area Cont Eq pk 1.0 cm squared MV Peak Velocity 124.0 cm/s MV Area PHT 3.2 cm squared Mitral E to A Ratio 0.8 MV E' Velocity 54.0 cm/s Mitral E to MV E' Ratio 9.6 Mitral E to LV E' Lateral Ratio 9.0 Mitral E to LV E' Septal Ratio 10.3 TR Peak Velocity 290.1 cm/s TR Peak Gradient 33.7 mmHg TR Mean Velocity 223.6 cm/s TR Mean Gradient 21.9 mmHg TR Velocity Time Integral 103.1 cm TV Peak E Velocity 38.0 cm/s Right Atrial Pressure 3.0 mmHg Pulmonary Artery Systolic Pressu 36.7 mmHg PV Peak Velocity 130.0 cm/s RV Acceleration Time 0.2 s RV Ejection Time 0.3 s RV AcT/ET 0.5 FINDINGS Left Ventricle Normal left ventricular size, systolic function and wall thickness, with no regional wall motion abnormalities. Left ventricular ejection fraction is estimated at 65 %. Normal diastolic function. Right Ventricle Normal right ventricular size and systolic function. Right ventricular systolic pressure 36.7 mmHg. Right Atrium Normal right atrial size. Aneurysmal interatrial septum Left Atrium Mildly increased left atrial size. Mitral Valve Mild mitral annular calcification. Mildly thickened mitral valve. No mitral valve stenosis. No mitral valve regurgitation. Aortic Valve Thickened and calcified aortic valve. Moderate aortic valve stenosis, velocity 3.4 m/s, peak gradient 46 mmHg, mean gradient 23 mmHg, STACY 1.1 cm squared. Mild aortic valve regurgitation. Tricuspid Valve Structurally normal tricuspid valve. No tricuspid valve stenosis. Mild tricuspid valve regurgitation. Pulmonic Valve Pulmonic valve not well visualized. No pulmonary valve stenosis. Trace pulmonary valve regurgitation. Pericardium No pericardial effusion. Aorta Normal size aortic root and proximal ascending aorta. IVC Normal IVC dimension with >50% respiratory change of the inferior vena cava. CONCLUSIONS 1. Normal left ventricular size, systolic function and wall thickness, with no regional wall motion abnormalities. Left ventricular ejection fraction is estimated at 65 %. Normal diastolic function. 2. Moderate aortic valve stenosis, velocity 3.4 m/s, peak gradient 46 mmHg, mean gradient 23 mmHg, STACY 1.1 cm squared. Mild aortic valve regurgitation. 3. Pulmonary artery pressure estimated at 37 mmHg. 4. Aneurysmal interatrial septum. Evidence of ASD or PFO based on the study. 5. No Prior similar studies to compare. Catherine Hadley MD (Electronically Signed) Final Date: 25 February 2023 12:52 S
== END 2023-02-19 09:10 | disposition home or self-care (01) ==
PROVIDERS: PCP Family Medicine; Visit Provider Family Medicine
DX: R94.31 Abnormal electrocardiogram [ECG] [EKG] (principal); R01.1 Cardiac murmur, unspecified; I35.0 Nonrheumatic aortic (valve) stenosis; Q24.9 Congenital malformation of heart, unspecified; I25.3 Aneurysm of heart
CPT/HCPCS: 93306

== ENCOUNTER → 2023-03-06 13:14 | Outpatient (BNVA) | payer OTHER, SELFPAY | PROVIDERS: PCP Family Medicine; Visit Provider Internal Medicine Rheumatology | DX: M15.9 Polyosteoarthritis, unspecified (principal); Z79.899 Other long term (current) drug therapy; M47.814 Spondylosis without myelopathy or radiculopathy, thoracic region; Z71.89 Other specified counseling; M06.041 Rheumatoid arthritis without rheumatoid factor, right hand; M06.042 Rheumatoid arthritis without rheumatoid factor, left hand; M47.816 Spondylosis without myelopathy or radiculopathy, lumbar region | CPT/HCPCS: 99214 ==

== ENCOUNTER 2023-03-18 13:44 | Emergency (ER) | payer OTHER, SELFPAY ==
[2023-03-18 13:48] VITALS: BP 113/58; PULSE 70; RESP 16; TEMP 36.7; O2SAT 97; BMI 18.9
[2023-03-18 15:38] LABS: Basophils % 0.2 %; Eosinophils # 0.1 10^3/uL (0.0-0.8); Eosinophils % 0.5 %; Hemoglobin 9.1 g/dL (11.7-16.6); Lymphocytes # 3.9 10^3/uL (0.8-4.8); Lymphocytes % 42.2 %; Mean Corpuscular HGB Conc 30.3 g/dL (30.0-36.0); Mean Corpuscular Hemoglobin 28.2 pg (28.0-34.0); Mean Corpuscular Volume 92.9 fl (80-94); Mean Platelet Volume 9.2 fL (7.4-10.4); Monocytes # 0.5 10^3/uL (0.2-0.9); Monocytes % 5.3 %; Neutrophils # 4.77 10^3/uL (1.8-7.7); Neutrophils % 51.3 %; Nucleated Red Blood Cells % 0 %; Platelet Count 121 10^3/cmm (130-400); Red Blood Count 3.23 10^6/uL (4.1-5.3); Red Cell Distribution Width 16.6 % (12.1-15.1); White Blood Count 9.3 10^3/uL (4.0-10.0)
[2023-03-18 15:43] VITALS: BP 122/55; PULSE 69; RESP 16; O2SAT 93
[2023-03-18 16:03] LABS: Alanine Aminotransferase 17 U/L (0-41); Albumin Level 3.2 g/dL (3.5-5.2); Alkaline Phosphatase 84 U/L (40-130); Anion Gap 10.8 (5-19); Aspartate Amino Transferase 20 U/L (0-40); Blood Urea Nitrogen 10 mg/dL (8-23); Calcium 8.1 mg/dL (8.5-10.5); Carbon Dioxide 26 mmol/L (22-29); Chloride 100 mmol/L (98-107); Globulin 1.7 g/dL (1.3-4.6); Glucose 178 mg/dL (65-115); Osmolality Calculated 279 mOsm/kg (285-295); Potassium 3.8 mmol/L (3.5-5.1); Sodium 133 mmol/L (136-145); Total Bilirubin 0.3 mg/dL (0.15-1.2); Total Protein 4.9 g/dL (6.6-8.7)
--- NOTE | 2023-03-18 16:08 | ED_ITS ---
HPI - Recheck/Abnormal Lab/Rx General: Chief Complaint: Recheck/Abnormal Lab/Rx Stated Complaint: [facility] Time Seen by Provider: 03/18/23 14:53 Source: patient Mode of arrival: wheelchair History of Present Illness: 82-year-old male presents emergency room directed here from the [facility]. He has had progressively worsening anemia he has been stable since March 13 at 8.8 it was rechecked today and was still at 8.8 prior to that he had been as high as 11.2. He has not noticed any hematemesis coffee-ground emesis hematochezia or melena. He has not had any hematuria no fever sweats or chills. He has noticed increasing easily fatigue and generally not feeling well. He is not on any anticoagulants. Caregiver with the patient states there trying to get him in to have a EGD and colonoscopy to evaluate for his blood loss. MD complaint: abnormal lab Review of Systems Const: Denies: fever(s), chills, body aches, change in appetite, fatigue or malaise ENMT: Denies: throat pain, ear or mastoid pain, nasal discharge or nasal congestion Card: Denies: chest pain, edema, dyspnea on exertion or orthopnea Resp: Denies: dyspnea, productive cough or non-productive cough GI: Denies: abdominal pain, nausea, vomiting, hematemesis, coffee ground emesis, diarrhea, constipation, bloating, hematochezia or melena : Denies: flank pain, dysuria, urinary frequency or urinary urgency Skin/Breast: Denies: rash or pruritus PFSH ED PFSH: Medical History Bipolar disorder Chronic obstructive pulmonary disease Dactylitis of toe Degenerative joint disease (DJD) of lumbar spine Depression DJD (degenerative joint disease) of thoracic spine High risk medication use History of malignant melanoma Immunization counseling Inflammatory arthritis Macular degeneration Osteoarthritis, 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 date alcohol: 1989 Substance/Drug Use: never Caregiver/support person: Yes Lives independently: Yes Household members: caregiver Current occupational status: retired and disabled Do you think of yourself as: Straight/Heterosexual Current gender identity: Male Physical Exam Const: GENERAL APPEARANCE: cooperative and comfortable ORIENTATION/CONSCIOUSNESS: Yes awake, Yes oriented to person, Yes oriented to place and Yes oriented to time HENMT: COMMON NORMALS: normocephalic, atraumatic and hearing grossly normal bilaterally HEAD & SCALP: normocephalic and atraumatic Resp: COMMON NORMALS: normal respiratory effort, No retractions, No use of accessory muscles and clear to auscultation bilaterally AUSCULTATION: clear to auscultation bilaterally Cardio: COMMON NORMALS: regular rate, regular rhythm and No murmurs present (Cardio) RATE: regular rate RHYTHM: regular rhythm GI: COMMON NORMALS: Soft to palpation and No hepatosplenomegaly present AUSCULTATION: Yes normoactive bowel sounds PALPATION: Yes Soft to palpation, No Tenderness to palpation present (GI), No Guarding due to palpation present (GI) and Yes No hepatosplenomegaly present Extremity: COMMON NORMALS: normal to inspection, capillary refill normal, no clubbing, cyanosis or edema, no calf tenderness and no pedal edema Neuro: SENSORIUM/ORIENTATION: Yes oriented to person, Yes oriented to place and Yes oriented to time Skin: COMMON NORMALS: no rashes or lesions noted GENERAL SKIN EXAM: no rashes or lesions noted Course Vital Signs: Vital signs: Vital Signs Temperature 98.0 F 03/18/23 13:48 Pulse Rate 69 03/18/23 15:43 Respiratory Rate 16 03/18/23 15:43 Blood Pressure 122/55 03/18/23 15:43 Pulse Oximetry 93 03/18/23 15:43 Oxygen Delivery Me thod Room Air 03/18/23 15:43 MDM - Recheck/Abnormal Lab/Rx Medical Decision Making Hemoglobin is actually [facility] is not having signs of active bleeding now. Patient discharged home follow-up with general surgery for further evaluation of his anemia including potential EGD and colonoscopy if deemed appropriate return if has signs of bleeding. Medical Records I reviewed the patient's medical records. Lab Data I reviewed the patient's lab results. 03/18/23 15:33 03/18/23 15:33 Laboratory Results WBC 9.3 10^3/uL (4.0-10.0) 03/18/23 15:33 RBC 3.23 10^6/uL (4.1-5.3) L 03/18/23 15:33 Hgb 9.1 g/dL (11.7-16.6) L 03/18/23 15:33 Hct 30.0 % (42.0-52.0) L 03/18/23 15: MCV 92.9 fl (80-94) 03/18/23 15:33 MCH 28.2 pg (28.0-34.0) 03/18/23 15: MCHC 30.3 g/dL (30.0-36.0) 03/18/23 15: RDW 16.6 % (12.1-15.1) H 03/18/23 15:33 Plt Count 121 10^3/cmm (130-400) L 03/18/23 15:33 MPV 9.2 fL (7.4-10.4) 03/18/23 15:33 Neut % (Auto) 51.3 % 03/18/23 15:33 Lymph % (Auto) 42.2 % 03/18/23 15:33 Bucks % (Auto) 5.3 % 03/18/23 15:33 Eos % (Auto) 0.5 % 03/18/23 15:33 Baso % (Auto) 0.2 % 03/18/23 15:33 Neut # (Auto) 4.77 10^3/uL (1.8-7.7) 03/18/23 15:33 Lymph # (Auto) 3.9 10^3/uL (0.8-4.8) 03/18/23 15:33 Bucks # (Auto) 0.5 10^3/uL (0.2-0.9) 03/18/23 15:33 Eos # (Auto) 0.1 10^3/uL (0.0-0.8) 03/18/23 15:33 Baso # (Auto) 0.0 10^3/uL (0.0-0.1) 03/18/23 15:33 Nucleated RBC % (auto) 0 % 03/18/23 15:33 Nucleated RBCs # 0.0 /100WBC 03/18/23 15:33 Sodium 133 mmol/L (136-145) L 03/18/23 15:33 Potassium 3.8 mmol/L (3.5-5.1) 03/18/23 15:33 Chloride 100 mmol/L (98-107) 03/18/23 15:33 Carbon Dioxide 26 mmol/L (22-29) 03/18/23 15:33 Anion Gap 10.8 (5-19) 03/18/23 15:33 BUN 10 mg/dL (8-23) 03/18/23 15:33 Creatinine 0.9 mg/dL (0.7-1.2) 03/18/23 15:33 GFR Calculation Not Reportable 03/18/23 15: Glucose 178 mg/dL (65-115) H 03/18/23 15:33 Calculated Osmolality 279 mOsm/kg (285-295) L 03/18/23 15:33 Calcium 8.1 mg/dL (8.5-10.5) L 03/18/23 15:33 Total Bilirubin 0.3 mg/dL (0.15-1.2) 03/18/23 15:33 AST 20 U/L (0-40) 03/18/23 15:33 ALT 17 U/L (0-41) 03/18/23 15:33 Alkaline Phosphatase 84 U/L (40-130) 03/18/23 15:33 Total Protein 4.9 g/dL (6.6-8.7) L 03/18/23 15:33 Albumin 3.2 g/dL (3.5-5.2) L 03/18/23 15:33 Globulin 1.7 g/dL (1.3-4.6) 03/18/23 15:33 Discharge Plan Discharge Patient Disposition: Home Clinical Impression: Anemia Condition: Stable Prescriptions: No Action trazodone 100 mg tablet 150 mg PO BEDTIME PRN (Reason: Sleep) albuterol sulfate 2.5 mg /3 mL (0.083 %) solution for nebulization 2.5 mg INHALATION Q6H PRN (Reason: Shortness Of Breath) Rx Instructions: on hold on [employer] med list 02/10/23 brimonidine 0.15 % drops 1 drp ophthalmic (eye) BID ipratropium bromide 17 mcg/actuation HFA aerosol inhaler 2 puff inhalation QID montelukast 10 mg tablet 10 mg PO DAILY Humira Pen 40 mg/0.8 mL pen injector kit 40 mg SUBCUT Q14D Qty: 2 3RF prednisone 5 mg tablet 5 mg PO DAILY Qty: 90 1RF sulfasalazine 500 mg tablet 500 mg PO BID Qty: 180 1RF Rx Instructions: give with food (meal/snack) tramadol 50 mg tablet 50 mg PO TID PRN (Reason: take for moderate to severe pain PRN) Qty: 60 1RF albuterol sulfate 90 mcg/actuation Hfa Aerosol Inhaler 2 puff INHALATION QID PRN (Reason: Shortness Of Breath) ascorbic acid (vitamin C) 500 mg Tablet 500 mg PO DAILY vitamin B complex Tablet 1 tab PO QAM prazosin 2 mg Capsule 4 mg PO BEDTIME cholecalciferol (vitamin D3) 2,000 unit Tablet 2,000 unit PO DAILY lisinopril 20 mg Tablet 20 mg PO BEDTIME travoprost 0.004 % Drops 1 drp OPHTHALMIC (EYE) QPM amlodipine 2.5 mg Tablet 2.5 mg PO DAILY meloxicam 7.5 mg Tablet 7.5 mg PO DAILY fluticasone propionate [Flonase] 50 mcg/actuation [place],Suspension 1 spray INTRANASAL DAILY PRN (Reason: Allergy Symptoms) Rx Instructions: administer into each nostril loratadine 10 mg Tablet 10 mg PO DAILY vitamin E 670 mg (1,000 unit) Capsule 1 cap PO DAILY clotrimazole 10 mg Jorge 10 mg MUCOUS MEMBRANE 5XD nystatin 100,000 unit/mL Suspension See Rx Instructions .ROUTE .COMPLEX Rx Instructions: swish and swallow 10ml po tid for oral thrush levalbuterol HCl 0.63 mg/3 mL Solution For Nebulization 0.63 mg INHALATION QID PRN (Reason: copd) sertraline 100 mg Tablet 200 mg PO QAM folic acid 400 mcg Tablet 0.4 mg PO DAILY erythromycin 5 mg/gram (0.5 %) Ointment 1 applic OPHTHALMIC (EYE) BEDTIME omeprazole 20 mg Capsule,Delayed Release(Dr/Ec) 20 mg PO DAILY Rx Instructions: in med list has 20mg daily and 40mg daily fluticasone propion-salmeterol 100-50 mcg/dose Blister With Device 1 inh INHALATION BID Maxitrol 3.5 mg/g-10,000 unit/g-0.1 % ointment See Rx Instructions .ROUTE .COMPLEX Rx Instructions: 1/4 inch on both eyes at bedtime Abilify 15 mg Tablet 15 mg PO DAILY witch wenceslao 50 % Pads, Medicated 1 pad TOPICAL DAILY PRN (Reason: Hemorrhoids) PreserVision AREDS-2 250-90-40-1 mg Capsule 1 tab PO BID vitamin A acetate 3,000 mcg (10,000 unit) Tablet, Sublingual 3,000 mcg PO DAILY omeprazole 40 mg capsule,delayed release(DR/EC) 40 mg PO QAM ondansetron HCl 4 mg tablet 4 mg PO Q6H PRN (Reason: nausea and vomiting) Qty: 15 0RF Discharge Orders: Discharge ED (Routine); Ordered 03/18/23 Ordered By: Luis Daniel Mcgee Referrals: Regina Morales MD [Primary Care Provider] - Patient Instructions: Opioid Safety, Pain Management Activity Restrictions/Additional Instructions: You were seen today for anemia. Your hemoglobin is actually slightly increased from most recent ones at the [place]. Case management make arrangements for follow- up with one of the general surgeons to evaluate further for your anemia. Coding Level of Care Code ED Therapeutic Recreation Assistant for Tori Saldana
--- NOTE | 2023-03-19 09:00 | DCPLANNER ---
Addendum entered by Gricelda Rolon 04/09/23 11:35: legal support manager received the following message from the general surgery office regarding follow up appointment: [facility].. they are going to have [facility] send [facility] referral.. Once [facility] paperwork is received, we will set patient up On 03/21/23 @ 09:05 Jad Mcgarry Wrote To General Surgery Front Off left message 03/21 On 03/20/23 @ 14:30 Jad Mcgarry Wrote To General Surgery Front Off left message 03/20 Original Note: legal support manager had message to schedule a follow up appointment for patient with general surgery. legal support manager sent patients information to the front office staff at general surgery. Patients information will be printed and reviewed. Clinic will call patient with appointment information.
== END 2023-03-18 16:27 | disposition home or self-care (01) ==
PROVIDERS: Emergency Provider Family Medicine; PCP Family Medicine
DX: D64.9 Anemia, unspecified (principal); J44.9 Chronic obstructive pulmonary disease, unspecified; H35.30 Unspecified macular degeneration; Z87.891 Personal history of nicotine dependence
CPT/HCPCS: 36415; 80053; 85025; 99283

== ENCOUNTER 2023-04-14 13:18 | Oncology outpatient (recurring) (ONCR) | payer OTHER, MEDICARE, SELFPAY ==
[2023-04-14 14:44] LABS: Basophils % 0.2 %; Eosinophils # 0.1 10^3/uL (0.0-0.8); Eosinophils % 0.6 %; Hematocrit 30.6 % (42.0-52.0); Hemoglobin 9.7 g/dL (11.7-16.6); Lymphocytes # 3.3 10^3/uL (0.8-4.8); Lymphocytes % 29.1 %; Mean Corpuscular HGB Conc 31.7 g/dL (30.0-36.0); Mean Corpuscular Hemoglobin 27.5 pg (28.0-34.0); Mean Corpuscular Volume 86.7 fl (80-94); Mean Platelet Volume 9.3 fL (7.4-10.4); Monocytes # 0.6 10^3/uL (0.2-0.9); Monocytes % 4.9 %; Neutrophils # 7.37 10^3/uL (1.8-7.7); Neutrophils % 64.5 %; Nucleated Red Blood Cells % 0 %; Platelet Count 164 10^3/cmm (130-400); Red Blood Count 3.53 10^6/uL (4.1-5.3); Red Cell Distribution Width 16.9 % (12.1-15.1); White Blood Count 11.4 10^3/uL (4.0-10.0)
== END 2023-05-01 23:59 | disposition home or self-care (01) ==
PROVIDERS: PCP Family Medicine; Visit Provider Internal Medicine Medical Oncology
DX: D50.9 Iron deficiency anemia, unspecified (principal); M06.09 Rheumatoid arthritis without rheumatoid factor, multiple sites; D69.6 Thrombocytopenia, unspecified; Z79.899 Other long term (current) drug therapy
CPT/HCPCS: 36415; 85025; 99205

== ENCOUNTER → 2023-04-15 11:00 | Outpatient (BNVA) | payer OTHER, SELFPAY | PROVIDERS: PCP Family Medicine; Visit Provider Internal Medicine Cardiovascular Disease | DX: R07.9 Chest pain, unspecified (principal); D64.9 Anemia, unspecified; I35.0 Nonrheumatic aortic (valve) stenosis; J44.9 Chronic obstructive pulmonary disease, unspecified; E78.5 Hyperlipidemia, unspecified; I10 Essential (primary) hypertension; Z87.891 Personal history of nicotine dependence; R94.31 Abnormal electrocardiogram [ECG] [EKG] | CPT/HCPCS: 93005; 99204 ==

== ENCOUNTER 2023-04-21 11:10 | Outpatient (CLI) | payer OTHER, SELFPAY ==
[2023-04-23 11:05] LABS: CREATININE, 24 HOUR URINE 0.24 g/24 h (0.50-2.15); PROTEIN, TOTAL, 24 HR UR 74 mg/24 h (<150); Protein/Creatinine Ratio 0.304 (<0.100); Protein/Creatinine Ratio 304 mg/g creat (<100)
[2023-04-23 16:10] LABS: ALBUMIN 0 %; ALPHA-1-GLOBULINS 0 %; ALPHA-2-GLOBULINS 0 %; BETA GLOBULINS 0 %; GAMMA GLOBULINS 0 %
[2023-04-30 22:15] LABS: Kappa Free Light Chains Urine 57.63 mg/L (<=32.90)
== END 2023-04-21 11:11 | disposition home or self-care (01) ==
PROVIDERS: PCP Family Medicine; Visit Provider Internal Medicine Medical Oncology
DX: D64.9 Anemia, unspecified (principal)
CPT/HCPCS: 36415; 82570; 83883; 84156; 84166; 86335

== ENCOUNTER 2023-05-12 13:34 | Oncology outpatient (recurring) (ONCR) | payer OTHER, MEDICARE, SELFPAY ==
[2023-05-12 14:47] LABS: Basophils % 0.3 %; Eosinophils # 0.1 10^3/uL (0.0-0.8); Eosinophils % 0.7 %; Hematocrit 32.5 % (37-53); Lymphocytes % 43.3 %; Mean Corpuscular HGB Conc 32.6 g/dL (30-55); Mean Corpuscular Hemoglobin 29.7 pg (27-33); Mean Platelet Volume 9.4 fL (7.4-10.4); Monocytes # 0.5 10^3/uL (0.2-0.9); Monocytes % 5.7 %; Neutrophils # 4.56 10^3/uL (1.8-7.7); Neutrophils % 49.5 %; Nucleated Red Blood Cells % 0 %; Platelet Count 143 10^3/cmm (157-399); Red Blood Count 3.57 10^6/uL (3.85-5.65)
[2023-05-12 15:07] LABS: Alanine Aminotransferase 18 U/L (0-41); Albumin Level 3.7 g/dL (3.5-5.2); Alkaline Phosphatase 89 U/L (40-130); Anion Gap 11.9 (5-19); Aspartate Amino Transferase 22 U/L (0-40); Blood Urea Nitrogen 14 mg/dL (8-23); Calcium 8.4 mg/dL (8.5-10.5); Carbon Dioxide 31 mmol/L (22-29); Chloride 96 mmol/L (98-107); Globulin 1.6 g/dL (1.3-4.6); Glucose 127 mg/dL (65-115); Osmolality Calculated 280 mOsm/kg (285-295); Potassium 4.9 mmol/L (3.5-5.1); Sodium 134 mmol/L (136-145); Total Bilirubin 0.3 mg/dL (0.15-1.2); Total Protein 5.3 g/dL (6.6-8.7)
[2023-05-12 15:35] LABS: Ferritin 50 ng/mL (30-400); Iron 43 ug/dL (59-158); Lactate Dehydrogenase 139 U/L (135-225); Percent Saturation 19.3 % (20-50); Thyroid Stimulating Hormone 4.53 uIU/mL (0.27-4.20); Total Iron Binding Capacity 222 mcg/dl; Unsaturated Iron Binding 179 ug/dL (112-347); Vitamin B12 412 pg/mL (232-1245)
[2023-05-12 17:17] LABS: Folate Level > 20.0 ng/mL (4.5-32.2)
[2023-05-13 11:04] LABS: PROTEIN, TOTAL 5.1 g/dL (6.1-8.1)
[2023-05-13 12:23] LABS: KAPPA LIGHT CHAIN, FREE, SERUM 16.6 mg/L (3.3-19.4); KAPPA/LAMBDA LIGHT CHAINS FREE 0.57 (0.26-1.65)
[2023-05-13 15:50] LABS: ALBUMIN 3.4 g/dL (3.8-4.8); ALPHA 1 GLOBULIN 0.4 g/dL (0.2-0.3); ALPHA 2 GLOBULIN 0.6 g/dL (0.5-0.9); BETA 1 GLOBULIN 0.3 g/dL (0.4-0.6); BETA 2 GLOBULIN 0.2 g/dL (0.2-0.5); GAMMA GLOBULIN 0.2 g/dL (0.8-1.7)
== END 2023-05-31 23:59 | disposition home or self-care (01) ==
PROVIDERS: PCP Family Medicine; Visit Provider Internal Medicine Medical Oncology
DX: D69.6 Thrombocytopenia, unspecified (principal); M06.00 Rheumatoid arthritis without rheumatoid factor, unspecified site; D64.9 Anemia, unspecified
CPT/HCPCS: 36415; 80053; 82607; 82728; 82746; 83010; 83540; 83550; 83615; 83883; 84155; 84165; 84443; 85025; 86334; 99213

== ENCOUNTER 2023-05-19 09:39 | Outpatient (CLI) | payer OTHER, SELFPAY ==
--- NOTE | 2023-05-19 | ECG_ITS ---
[facility] Test Date: 2023-05-19 Pat Name: Glenn Kong Department: Room: Gender: Male Container Maker: : 1940 Requested By: Nikki Finn Order Number: [id number] Tiki MD: Nikki Finn M.D. Interpretive Statements NAME OF STUDY: LEXISCAN SESTAMIBI STRESS TEST INDICATION: Chest Pain PROCEDURE: At the baseline, the EKG revealed normal sinus rhythm with a poor R wave progression. Minimal left axis deviation. The baseline heart was 76 bpm with a blood pressue of 148/71 mm of Hg Lexiscan was infused over a period of 20 seconds. A total of 0.4 milligrams of Lexiscan was infused. The stress phase was continued for a total of 5 minutes. Heart rate at the end of the stress phase was 88 bpm with a blood pressure 133/61 mm of Hg. The EKG at the peak infusion revealed no significant changes. Sestamibi was injected 20 seconds after the Lexiscan infusion. Heart rate at the end of the recovery phase was 88 bpm with a blood pressure of 132/55 mm of Hg. CONCLUSION: 1. No significant EKG changes with the LexiScan infusion 2. No LexiScan induced chest pain or cardiac arrhythmia 3. Normal blood pressure and heart rate response 4. Sestamibi/sestamibi perfusion scan pending; see separate report. Electronically Signed On 05-19-2023 20:36:30 CDT by Nikki Finn M.D. [email or web address]
[2023-05-19 09:52] VITALS: BMI 18.6
--- NOTE | 2023-05-19 09:57 | NMCV_ITS ---
NM erum perf SPECT r/s* [id number] Glenn Kong Age: 82 Gender: M : 1940 Exam Date: 05/19/2023 11:09 Ordering Phys: Nikki Finn MD ([email or web address]) Technologist: JANEL Amin Exam Location: [facility] Indications: CORONARY ANGIOPLASTY STATUS CHEST PAIN STRESS TEST Please see separate stress test report in [facility] for full findings IMAGE PROTOCOL Rest/Stress 1 Lexiscan Day Radiopharmaceutical Dose (mCi) Administration Site Administered by Rest: Tc-99m 10.8 IV JANEL Michaels Sestamibi Stress:Tc-99m 32.1 IV JANEL Michaels Sestamibi Rest: 19-May-2023 60 Discovery 630 Stress: 19-May-2023 30 Discovery 630 0.4mg Lexiscan. Supine position only as patient was unable to lay prone. SPECT RESULTS Technical Quality: Excellent Raw Data Analysis: Normal Image Corrections: No attenuation or motion correction applied Summed Stress Score: 5 Summed Rest Score: 2 Summed Difference Score: 3 PERFUSION FINDINGS A small area of minimal to moderately decreased tracer uptake was noted in the basal mid and apical inferior and mid inferoseptal regions. Some reversibility was noted in the mid and apical inferior region FUNCTIONAL RESULTS (calculated via Gated SPECT) Stress Image LV EF (%): 65 Stress EDV (mL):102 TID: 0.98 Stress ESV (mL):36 FUNCTIONAL FINDINGS: Segmental wall motion analysis revealing no gross wall motion abnormalities IMPRESSIONS 1. Myocardial perfusion imaging revealing a small area of minimal to moderately decreased tracer uptake , involving the mid and apical inferior mid inferoseptal regions with some reversibility suggesting myocardial scarring with ischemia in the distribution of the right coronary artery. 2. Normal LV ejection fraction of 65%. 3. LV wall motion analysis revealing no gross wall motion abnormalities. 4. Normal LV volume No similar previous studies are available for comparison Dr Nikki Finn MD FACC (Electronically Signed) Final Date: 19 May 2023 19:54 S
[2023-05-19] MEDS: regadenoson 0.4 Mg/5 ml Syringe IVP (12:04)
[2023-05-19 12:26] VITALS: BP 132/55; PULSE 88
== END 2023-05-19 09:40 | disposition home or self-care (01) ==
PROVIDERS: PCP Family Medicine; Visit Provider Internal Medicine Cardiovascular Disease
DX: R07.9 Chest pain, unspecified (principal); Z98.61 Coronary angioplasty status
CPT/HCPCS: 36415; 78452; 93017; 96374; A9500; J2785

== ENCOUNTER → 2023-05-26 13:05 | Outpatient (BNVA) | payer OTHER, SELFPAY | PROVIDERS: PCP Family Medicine; Visit Provider Podiatrist Foot & Ankle Surgery | DX: L60.3 Nail dystrophy (principal); I73.9 Peripheral vascular disease, unspecified; N18.9 Chronic kidney disease, unspecified | CPT/HCPCS: 11721 ==

== ENCOUNTER 2023-06-09 14:55 | Oncology outpatient (recurring) (ONCR) | payer OTHER, MEDICARE, SELFPAY | END 2023-07-01 23:59 | disposition home or self-care (01) | LOC: ONCMED 14:56 | PROVIDERS: PCP Family Medicine; Visit Provider Internal Medicine Medical Oncology | DX: D64.9 Anemia, unspecified (principal); D69.6 Thrombocytopenia, unspecified; J44.9 Chronic obstructive pulmonary disease, unspecified; N18.9 Chronic kidney disease, unspecified; Z79.899 Other long term (current) drug therapy | CPT/HCPCS: 99214 ==

== ENCOUNTER → 2023-07-10 12:48 | Outpatient (BNVA) | payer OTHER, MEDICARE, SELFPAY | PROVIDERS: PCP Family Medicine; Visit Provider Internal Medicine Rheumatology | DX: Z79.899 Other long term (current) drug therapy (principal); M06.041 Rheumatoid arthritis without rheumatoid factor, right hand; M06.042 Rheumatoid arthritis without rheumatoid factor, left hand; M15.9 Polyosteoarthritis, unspecified; Z71.89 Other specified counseling; M47.814 Spondylosis without myelopathy or radiculopathy, thoracic region; M47.816 Spondylosis without myelopathy or radiculopathy, lumbar region | CPT/HCPCS: 99214 ==

== ENCOUNTER → 2023-07-15 10:53 | Outpatient (BNVA) | payer OTHER, SELFPAY | PROVIDERS: PCP Family Medicine; Visit Provider Internal Medicine Cardiovascular Disease | DX: R07.89 Other chest pain (principal); D64.9 Anemia, unspecified; I12.9 Hypertensive chronic kidney disease with stage 1 through stage 4 chronic kidney disease, or unspecified chronic kidney disease; N18.2 Chronic kidney disease, stage 2 (mild); I73.9 Peripheral vascular disease, unspecified; I35.0 Nonrheumatic aortic (valve) stenosis; J44.9 Chronic obstructive pulmonary disease, unspecified; E78.5 Hyperlipidemia, unspecified; D69.6 Thrombocytopenia, unspecified; Z87.891 Personal history of nicotine dependence | CPT/HCPCS: 99214 ==

== ENCOUNTER → 2023-08-20 13:38 | Outpatient (BNVA) | payer OTHER, SELFPAY | PROVIDERS: PCP Family Medicine; Visit Provider Internal Medicine Rheumatology | DX: M06.041 Rheumatoid arthritis without rheumatoid factor, right hand (principal); M06.042 Rheumatoid arthritis without rheumatoid factor, left hand; Z79.899 Other long term (current) drug therapy; M15.9 Polyosteoarthritis, unspecified; Z71.89 Other specified counseling; M47.814 Spondylosis without myelopathy or radiculopathy, thoracic region; M47.816 Spondylosis without myelopathy or radiculopathy, lumbar region | CPT/HCPCS: 36415; 80076; 82565; 85025; 86140; 99214 ==

== ENCOUNTER 2023-09-19 05:41 | Outpatient (CLI) | payer OTHER, SELFPAY ==
[2023-09-19] VITALS (9 sets, daily range): BP systolic 118–147; BP diastolic 57–68; PULSE 64–70; RESP 14–25; TEMP 37.3; O2SAT 93–97; BMI 23.2
[2023-09-19 06:06] LABS: Basophils % 0.3 %; Eosinophils # 0.1 10^3/uL (0.0-0.8); Eosinophils % 0.7 %; Hematocrit 33.9 % (37-53); Lymphocytes # 2.8 10^3/uL (0.8-4.8); Lymphocytes % 23.7 %; Mean Corpuscular HGB Conc 33.9 g/dL (30-55); Mean Corpuscular Hemoglobin 32.3 pg (27-33); Mean Corpuscular Volume 95.2 fl (82-101); Mean Platelet Volume 9.1 fL (7.4-10.4); Monocytes # 0.9 10^3/uL (0.2-0.9); Monocytes % 7.6 %; Neutrophils # 7.91 10^3/uL (1.8-7.7); Nucleated Red Blood Cells % 0 %; Platelet Count 156 10^3/cmm (157-399); Red Blood Count 3.56 10^6/uL (3.85-5.65); Red Cell Distribution Width 14.9 % (12.1-15.1)
[2023-09-19 06:23] LABS: Anion Gap 11.9 (5-19); Blood Urea Nitrogen 18 mg/dL (8-23); Calcium 9.1 mg/dL (8.5-10.5); Carbon Dioxide 28 mmol/L (22-29); Chloride 95 mmol/L (98-107); Glucose 109 mg/dL (65-115); Osmolality Calculated 272 mOsm/kg (285-295); Potassium 4.9 mmol/L (3.5-5.1); Sodium 130 mmol/L (136-145)
[2023-09-19] MEDS: aspirin 325 mg Tablet PO (06:50)
[2023-09-19] MEDS: diphenhydrAMINE 50 mg Capsule PO (06:50)
--- NOTE | 2023-09-19 07:18 | P.HP_ITS ---
Providers/Chief Complaint 2 Admitting Physician: MARY Finn MD Primary Care Provider: Regina Morales MD Chief Complaint: I35.0 History of Present Illness Glenn Kong is a 83 year old male with a history of hypertension, dyslipidemia, aortic valve stenosis, presented with complaints of chest pain. He had a Myocardial perfusion imaging which he was found to be abnormal. He has multiple other medical problems including bipolar disorder, peripheral vascular disease, COPD, thrombocytopenia, anemia, chronic kidney disease, etc. He is legally blind. He has a chip separator. He has no close relative. He has been having episodes of chest tightness/heaviness. His perfusion scan done on 05/19/2023 revealed areas of fixed and reversible defect in the distribution of the right coronary artery. Initially it was decided to treat him medically. However because of the ongoing symptoms, patient was wanting to go ahead with the angiogram. The risk and benefits were discussed the patient detail which he understood well and consented to proceed. His aortic valve area was calculated to be 1.1 cm squire. LV ejection fraction was within normal limits. Review of Systems 2 Narrative: CONSTITUTIONAL: No fever or chills. EYES: No blurring of vision or other visual disturbances lately. ENT: No hoarseness of voice, auditory disturbances or sore throat. CARDIOVASCULAR: As mentioned above. RESPIRATORY: Is known to have COPD and has been having intermittent exacerbation. He is currently on steroid. GASTROINTESTINAL: No hematemesis or melena. GENITOURINARY: No dysuria or hematuria. INTEGUMENTARY: No skin rashes or history of skin cancer. NEURO: No transient ischemic attacks or amaurosis. PSYCHIATRIC: History of bipolar disorder, posttraumatic stress disorder HEMATOLOGIC: No bleeding disorders or significant anemia. ENDOCRINE: No history of polyuria or polydipsia. MUSCULOSKELETAL: No recent joint pain or swelling. ALLERGY/IMMUNOLOGY: As mentioned above. Medications/Allergies Home Medications Medication Instructions Recorded Confirmed Last Taken Type albuterol sulfate 90 mcg/actuation 2 puff inhalation QID PRN 12/07/19 09/19/23 Unknown History aerosol inhaler Shortness Of Breath ascorbic acid (vitamin C) 500 mg 500 mg PO DAILY 12/07/19 09/19/23 09/18/23 07:00 History tablet cholecalciferol (vitamin D3) 50 2,000 unit PO DAILY 12/07/19 09/19/23 09/18/23 07:00 History mcg (2,000 unit) tablet vitamin B complex 1 tab PO QAM 12/07/19 09/19/23 Unknown History ipratropium bromide 17 2 puff inhalation QID 03/22/21 09/19/23 09/18/23 History mcg/actuation HFA aerosol inhaler montelukast 10 mg tablet 10 mg PO DAILY 03/22/21 09/19/23 09/18/23 History loratadine 10 mg tablet 10 mg PO DAILY 02/08/22 09/19/23 09/18/23 History fluticasone 100 mcg-salmeterol 50 1 inh inhalation BID 02/10/23 09/19/23 09/18/23 History mcg/dose blistr powdr for inhalation folic acid 400 mcg tablet 0.4 mg PO DAILY 02/10/23 08/20/23 09/18/23 History levalbuterol HCl 0.63 mg/3 mL 0.63 mg inhalation QID PRN copd 02/10/23 08/20/23 09/18/23 History solution for nebulization nystatin 100,000 unit/mL oral See Rx Instructions .Route .COMPLEX 02/10/23 09/19/23 Unknown History suspension vit C 250 mg-vit E 90 mg-zinc 40 1 tab PO BID 02/10/23 09/19/23 Unknown History mg-copper 1 [id number]-[id number] capsule (PreserVision AREDS-2) vitamin A acetate 3,000 mcg 3,000 mcg PO DAILY 02/10/23 09/19/23 Unknown History (10,000 unit) sublingual tablet vitamin E 670 mg (1,000 unit) 1 cap PO DAILY 02/10/23 09/19/23 Unknown History capsule witch wenceslao 50 % topical pads 1 pad topical DAILY PRN Hemorrhoids 02/10/23 09/19/23 Unknown History isosorbide mononitrate 30 mg 30 mg PO DAILY #30 tabs 07/15/23 08/20/23 09/18/23 Rx tablet,extended release 24 hr abatacept 125 mg/mL subcutaneous 125 mg SUBCUT .Q7days #4 mL 08/20/23 09/19/23 Unknown Rx auto-injector (Orencia ClickJect) omeprazole 40 mg capsule,delayed 40 mg PO QAM #90 caps 08/20/23 09/19/23 09/18/23 Rx release prednisone 5 mg tablet 5 mg PO DAILY #90 tabs 08/20/23 09/19/23 09/18/23 Rx sulfasalazine 500 mg tablet 500 mg PO BID #180 tabs 08/20/23 09/19/23 09/18/23 Rx Allergies Allergy/AdvReac Type Severity Reaction Status Date / Time mushroom Allergy Unknown Verified 08/20/23 13:59 PFSH Acute 2 PFSH: Medical History Ambulates with cane Bipolar 1 disorder Carcinoma in situ of prostate Fine motor impairment Cardiac murmur MDD (major depressive disorder) Legal blindness Intervertebral disc degeneration PTSD (post-traumatic stress disorder) History of prostate cancer History of scarlet fever Neuropathy Chronic kidney disease (CKD) Stage 2 Hypertension Hyperlipidemia 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 Mother Lung disease Social History Smoking and tobacco/nicotine status: former use of tobacco/nicotine Quit status (tobacco/nicotine): has quit using Year quit tobacco: 1969 - PPD x 25 Years Former quit date comment: smoked 40+ years Alcohol intake: former Year of sobriety/quit date alcohol: 1989 Substance/Drug Use: never Caregiver/support person: Yes Lives independently: Yes Household members: caregiver Current occupational status: retired and disabled Do you think of yourself as: Straight/Heterosexual Current gender identity: Male Vitals/I&O/Wt Last Vital Signs Temp 99.1 F 09/19/23 06:52 Pulse 70 09/19/23 06:52 Resp 14 09/19/23 06:52 BP 147/64 09/19/23 06:52 O2 Del Method Room Air 09/19/23 06:52 Weight last 48 hrs Weight 144 lb Physical Exam 2 Narrative: GENERAL: The patient is alert and oriented times three. Not in any acute distress. Has some generalized emaciation. HEENT: No significant pallor, icterus or lymphadenopathy.Oral cavity: There are no mucous membrane lesions. NECK: Trachea appears to be central. No masses noted. No JVD or thyromegaly appreciated. RESPIRATORY: Chest is symmetrical. No intercostals muscle retraction or any accessory muscle activation. There is no chest wall tenderness. Breath sounds are heard bilaterally. Occasional coarse crackles and scattered expiratory wheezing BREASTS: Deferred. HEART: The heart sounds are normal. No S3 or S4. Ejection systolic murmur grade 4 or 6 in the aortic area. No diastolic murmurs. No pericardial rub. ABDOMEN: No vessel pulsations or distention. No tenderness. No organomegaly appreciated. Bowel sounds are normally heard. : Deferred. RECTAL: Deferred. LYMPHATIC: No lymphadenopathy noted in the neck. EXTREMITIES: No edema or cyanosis. No clubbing. MUSCULOSKELETAL: No acute joint deformities or swelling SKIN: There are no significant rashes or ecchymosis NEUROPSYCHIATRIC: The patient is alert and oriented x3. Appears to be in a good mood. No tremors or rigidity noted. Data 09/19/23 06:00 09/19/23 06:00 Other Labs: Laboratory Last Values WBC 11.80 10^3/uL (3.29-11.43) H 09/19/23 06:00 RBC 3.56 10^6/uL (3.85-5.65) L 09/19/23 06:00 Hgb 11.50 g/dL (11.27-16.99) 09/19/23 06:00 Hct 33.9 % (37-53) L 09/19/23 06:00 MCV 95.2 fl (82-101) 09/19/23 06:00 MCH 32.3 pg (27-33) 09/19/23 06:00 MCHC 33.9 g/dL (30-55) 09/19/23 06:00 RDW 14.9 % (12.1-15.1) 09/19/23 06:00 Plt Count 156 10^3/cmm (157-399) L 09/19/23 06:00 MPV 9.1 fL (7.4-10.4) 09/19/23 06:00 Neut % (Auto) 67.0 % 09/19/23 06:00 Lymph % (Auto) 23.7 % 09/19/23 06:00 Jerome % (Auto) 7.6 % 09/19/23 06:00 Eos % (Auto) 0.7 % 09/19/23 06:00 Baso % (Auto) 0.3 % 09/19/23 06:00 Neut # (Auto) 7.91 10^3/uL (1.8-7.7) H 09/19/23 06:00 Lymph # (Auto) 2.8 10^3/uL (0.8-4.8) 09/19/23 06:00 Jerome # (Auto) 0.9 10^3/uL (0.2-0.9) 09/19/23 06:00 Eos # (Auto) 0.1 10^3/uL (0.0-0.8) 09/19/23 06:00 Baso # (Auto) 0.0 10^3/uL (0.0-0.1) 09/19/23 06:00 Nucleated RBC % (auto) 0 % 09/19/23 06:00 Nucleated RBCs # 0.0 /100WBC 09/19/23 06:00 Sodium 130 mmol/L (136-145) L 09/19/23 06:00 Potassium 4.9 mmol/L (3.5-5.1) 09/19/23 06:00 Chloride 95 mmol/L (98-107) L 09/19/23 06:00 Carbon Dioxide 28 mmol/L (22-29) 09/19/23 06:00 Anion Gap 11.9 (5-19) 09/19/23 06:00 BUN 18 mg/dL (8-23) 09/19/23 06:00 Creatinine 1.0 mg/dL (0.7-1.2) 09/19/23 06:00 GFR Calculation Not Reportable 09/19/23 06:00 Glucose 109 mg/dL (65-115) 09/19/23 06:00 Calculated Osmolality 272 mOsm/kg (285-295) L 09/19/23 06:00 Calcium 9.1 mg/dL (8.5-10.5) 09/19/23 06:00 A&P Assessment and plan (1) Tobacco abuse: (2) Hyperlipidemia: Qualifiers: Hyperlipidemia type: mixed hyperlipidemia Qualified Code(s): E78.2 - Mixed hyperlipidemia (3) Hypertension: Qualifiers: Hypertension type: primary hypertension Qualified Code(s): I10 - Essential (primary) hypertension (4) Aortic valve stenosis: Qualifiers: Cardiac valve disease etiology: nonrheumatic Qualified Code(s): I35.0 - Nonrheumatic aortic (valve) stenosis (5) Chest pain: Qualifiers: Chest pain type: precordial pain Qualified Code(s): R07.2 - Precordial pain (6) PVD (peripheral vascular disease): (7) Abnormal cardiovascular stress test: (8) CKD (chronic kidney disease): Qualifiers: Chronic kidney disease stage: stage 2 (mild) Qualified Code(s): N18.2 - Chronic kidney disease, stage 2 (mild) (9) Seronegative rheumatoid arthritis of both hands: Plan In view of the patient multiple risk factors and the abnormal Myocardial perfusion imaging, in order to further evaluate his coronary status, a cardiac catheterization would be appropriate. The risk and benefits were discussed with the patient in detail. The risk of bleeding, hematoma, vascular injury, myocardial infarction, myocardial perforation, malignant cardiac arrhythmias ,CVA, renal failure and other concomitant complications were explained in detail. In view of his chronic kidney disease, he carries a higher risk for contrast-induced nephropathy. Patient understood this well and consented to proceed Based on the results of the angiogram, further recommendations will be made Attestations 2 Medical Necessity Statement*: Patient may require at least 1 midnight stay, for further management of his condition Coding Level of Care Code 43772 Diagnoses Tobacco abuse Z72.0 Mixed hyperlipidemia E78.2 Hyperlipidemia type: mixed hyperlipidemia Primary hypertension I10 Hypertension type: primary hypertension Nonrheumatic aortic valve stenosis I35.0 Cardiac valve disease etiology: nonrheumatic Precordial pain R07.2 Chest pain type: precordial pain PVD (peripheral vascular disease) I73.9 Abnormal cardiovascular stress test R94.39 Stage 2 chronic kidney disease N18.2 Chronic kidney disease stage: stage 2 (mild) Seronegative rheumatoid arthritis of both hands M06.041; M06.042
--- NOTE | 2023-09-19 07:28 | P.HPUD_ITS ---
Surgery/Procedure H&P Update DATE OF PROCEDURE: September 19, 2023 DATE H&P PERFORMED: 09/19/23 H&P UPDATE INFORMATION: I have reviewed H&P completed within last 30 days, I have examined patient prior to procedure and No changes to prior documentation PREOP DIAGNOSIS: ASHD PRIMARY INDICATION FOR PROCEDURE: Chest pain, abnormal Myocardial perfusion imaging, aortic valve stenosis, multiple medical problems PLANNED PROCEDURE: Operation Date: 09/19/23 08:30 Proposed Procedures p [facility] [id number],I35.0,R07.9(Bilateral) - Nikki Finn MD PATIENT REASSESSED PRIOR TO SEDATION, WITH NO CHANGE NOTED: Yes PHYSICAL EXAM: alert, oriented x 3, clear to auscultation bilaterally (Scattered expiratory wheezing and occasional coarse crackles) and regular rate & rhythm AIRWAY EVAL/ANESTHESIA PLAN: normal airway, see other exam findings, ASA III, Monitored Anesthesia, Local Anesthesia, Risks, benefits & alternatives of sedation and/or procedure discussed and Patient agrees to continue as planned
--- NOTE | 2023-09-19 07:30 | XACV_ITS ---
Exam Room: 2 Ht: 168 cm Wt: 65 kg BSA: 1.75 m2 Gender: Male : 1940 Any Known Allergies: Other Exam Priority: Routine Procedure(s): Procedure Description: Diagnostic procedure Procedure Description: Left Heart Catheterization Procedure Description: O2 saturation Procedure Description: Coronary Angiography Aakash SANCHEZ; Diagnostic Cath Status: Elective Diagnostic Findings * The left main is a medium caliber vessel which was found to have a 30 to 40% eccentric ostial narrowing. There was no dampening of pressure with the catheter engagement. * The left anterior descending artery is a medium caliber vessel which appears to wrap around the LV apex minimally. The proximal and the mid LAD was found to have mild diffuse intimal irregularities with no significant stenotic lesions. The first diagonal branch was found to have a 50 to 60% ostial narrowing. * The intermedius artery, high diagonal is a medium caliber vessel with no significant stenotic lesions. * The left circumflex artery is a medium to large caliber dominant vessel with no significant stenotic lesions. * The right coronary artery is a small to medium caliber nondominant vessel with no significant stenotic lesions. Conclusions 1. This is a 83-year-old white male with a multiple risk factors for coronary disease, presenting with chest pain. Abnormal Myocardial perfusion imaging. At least moderate aortic valve stenosis by echocardiogram. Cardiac catheterization revealed the following. 2. 30 to 40% ostial eccentric left main disease. 50 to 60% ostial narrowing in the first diagonal branch of the left anterior descending artery. Minimal disease in the other vessels. Moderate calcification in the left main. The right heart catheterization revealed features of mild pulmonary hypertension - the pulmonary artery pressure of 42/80 with a mean of 28. RV pressure 45/9. Right atrial pressure was 14. Pulmonary capillary wedge pressure was 20. Cardiac output of 6.0 with an index of 3.0. Aortic valve area was calculated to be 1.7 cm2. Aortic valve index of 0.96. LVEDP was [address] Bañuelos about the FFR of the left main lesion. Since there was no dampening of pressure with the catheter engagement, it was decided not to do an FFR at this time.. Diagnostic RX Recommendation: medical therapy and/or counseling LV EDP: 21 mmHg Left Ventriculography Findings: * The LV gram was not performed. The LVEDP was 21 mmHg. Pressures Phase:Rest AO : 136 / 64 ( 93 ) @ 7:57:00 AM 104 / 55 ( 77 ) @ 8:00:00 AM 147 / 58 ( 92 ) @ 8:04:00 AM 148 / 50 ( 90 ) @ 8:04:00 AM 120 / 65 ( 89 ) @ 8:08:00 AM LV : 159 / -7 / 21 @ 8:04:00 AM 162 / -7 / 21 @ 8:04:00 AM RV : 45 / 9 / 16 @ 7:46:00 AM PA : 42 / 18 ( 28 ) @ 7:43:00 AM RA : a wave = 18 v wave = 18 mean = 14 @ 7:47:00 AM PCW : a wave = 31 v wave = 31 mean = 31 @ 7:43:00 AM a wave = v wave = mean = 20 @ 7:44:00 AM a wave = v wave = mean = 21 @ 7:44:00 AM Hemodynamic Findings The pulmonary artery pressure was 42/18 with a mean of 28. Artery pressure was 45/9. Right atrial pressure was 14. Pulmonary capillary wedge pressure was 20. Cardiac output was 6.0 with an index of 3.0. Aortic valve area was calculated to be 1.7 cm2. The aortic valve index was 0.96. O2 Content Phase:Rest PA : O2 Content O2: 73.3 @ 7:57:00 AM Saturations Phase:Rest AO : 95 @ 8:08:00 AM RA : 72 @ 8:04:00 AM RV : 70 @ 8:04:00 AM PA : 73 @ 7:57:00 AM PCW : 75 @ 8:00:00 AM Cardiac Output Phase:Rest Neida : 6 @ 8:22:01 AM Neida Cardiac Index: 3 @ 8:22:01 AM Flow Phase:Rest Qp : 6 @ 8:22:01 AM Qs : 5 @ 8:22:01 AM Valves Phase:DefaultPhase AV : 11.0 @ 8:22:01 AM 11.0 @ 8:22:01 AM AV Mean Gradient: 21.0 @ 8:22:01 AM 21.0 @ 8:22:01 AM AV Flow: 339 @ 8:22:01 AM AV Area: 1.7 @ 8:22:01 AM AV Area Index: 0.96 @ 8:22:01 AM Clinical Evaluation EBL: 5mL-10mL Procedural Details Pre-Procedure Time Out. Identified patient by full name and date of as verbalized by the patient/guarantor. Does the consent match the physician's order: Yes. Accurate & Complete Informed Consent: Yes. Inpatient/Outpatient History & Physical on Chart: Yes. If H&P is completed, is and addenduem needed: Yes; If yes, is the addendum complete: Yes. Visualize and Verify Site with Patient/Guarantor: N/A. Relevant Radiology Images available: Yes. Pre-op teaching completed and patient verbalized understanding. The risks, benefits, and alternatives of sedation and/or procedure were discussed by physician. The patient agrees to continue. Procedure started. [facility] Clinical Fraility Score: 6: Moderately Frail. Anode Worker Indications: Other. Chest Pain Symptom Assessment: Non-anginal Chest Pain. Correct patient, site and procedure confirmed by cath team. PERRLA. Strong, equal hand auto suspension and steering mechanic bilaterally. Lungs clear x 5 lobes. IV Site on Arrival: 20 gauge in the left anticubital. IV Fluids: 0.9% NaCl at KVO. 0 mL infused prior to lab rep. Pre Procedural Pulses: bilateral dorsalis pedis was 3+. Pre Procedural Pulses: bilateral posterior tibial was 3+. Pre Procedural Pulses: bilateral radial was 3+. Oxygen started at 2liters/min via nasal canula. right groin was prepped with chloroprep then draped in the usual sterile fashion. right radial was prepped with chloroprep then draped in the usual sterile fashion. right brachial was prepped with chloroprep then draped in the usual sterile fashion. Physician arrived. Baseline sample Acquired. HR: 72 BPM. Patient's family unavailable. Physician scrubbed in. Immediate Pre-Procedure Time Out. Correct Patient: Yes; Correct Procedure: Yes; Correct Site: Yes; Correct Patient Position: Yes; Correct Supplies: Yes; Dried Flammable Prep: Yes; Blood Products Available: N/A;. Lidocaine 1% infiltrated to the right brachial. Sheath wire inserted through the brachial IV catheter. IV catheter out OTW. [place]-Thee MON catheter inserted. Oximetry samples were obtained. Normal venous range: 60-85%. Normal arterial range: 95-100%. Pressure measurements obtained. [place]-Thee out. Lidocaine 1% infiltrated to the right radial. Arterial access obtained. A 5 [place] island[place] Celio catheter in over wire. Multiple views taken of left coronary artery. Catheter removed over the exchange wire. EDP Sample taken: LV 159/-8,21; HR: 67 BPM; SpO2: 98%. Pullback taken: LV 162/-8,21; AO 147/58(92); Mean: 21mmHg, Peak to Peak: 11mmHg, SEP: 18sec/min; HR: 68 BPM; SpO2: 98%. Catheter removed over the exchange wire. A 5 [place] island[place] JR4 catheter in over wire. Multiple views taken of right coronary artery. Catheter removed over the exchange wire. Physician scrubbed out. A TR Band was successful obtaining hemostatsis at the Right Radial artery insertion site. A Manual Compression was successful obtaining hemostatsis at the Right Brachial Vein insertion site. Post Procedure: Pulses reassessed and unchanged. PERRLA. Strong, equal hand auto suspension and steering mechanic bilaterally. No VTE prophylaxis required. Medication's Wasted: Nitro = 49.8 mg. Medication's Wasted: Lidocaine 1% = 16 mL. Medication's Wasted: Heparin = 1000 units. Medication's Wasted: Other = Fentanyl 50 mg. Total IV fluids: 54 mL. Complications: None. Estimated blood loss: 5mL-10mL. Responsiveness - Normal response to verbal stimuli; alert and oriented, PERRLA. Airway - Unaffected, no intervention required; spontaneous ventilation. Circulation: W/N/L, pulses unchanged. Nausea/Vomiting: No. Procedure completed. Patient transferred by bed to ICU. Vital chart was stopped. Access Site Site: Right Brachial Vein Sheath Size: 6 Fr Hemostasis Method: Manual Compression Hemostasis Success: Successful Site: Right Radial artery Sheath Size: 6 Fr Hemostasis Method: TR Band Hemostasis Success: Successful Procedure Medications Start: 7:29 AM Stop: 7:29 AM Medication: Versed 1 mg and Fentanyl 25 mcg Amount: 1 Route: I.V. Start: 7:54 AM Stop: 7:54 AM Medication: Nitrogylcerin Amount: 200 mcg Route: I.A. Start: 7:55 AM Stop: 7:55 AM Medication: Verapamil Amount: 5 mg Route: I.A. Start: 7:55 AM Stop: 7:55 AM Medication: Versed 1 mg and Fentanyl 25 mcg Amount: 1 Route: I.V. Start: 7:57 AM Stop: 7:57 AM Medication: Heparin Amount: 5000 units Route: I.V. I, the attending physician, have reviewed and verified all procedure medications. Yes, all medications given per verbal order History/Risk Factors Hypertension: Yes Dyslipidemia: Yes Peripheral Arterial Disease (PAD): No Obesity: No Renal Disease: No Tobacco Use: Former Prior Interventions PCI: No CABG: No Valve Surgery: No Report Signatures Finalized by Dr Nikki Finn MD [facility] on 09/19/2023 11:48 AM
[2023-09-19 08:00] LABS: Arterial Blood Gas Hematocrit 33.1 % (42-52); Blood Gas Operator Identificat GD; Blood Gas Sample Site Not specified; Blood Gas Sample Type Not specified; Carboxyhemoglobin 1.3 %THgb (0.4-20.1); HGB O2 Sat 92.4 % (95-100); Methemoglobin 1.1 % (0.4-1.5); Total Hemoglobin 10.8 g/dL (14-18)
[2023-09-19 08:02] LABS: Arterial Blood Gas Hematocrit 32.4 % (42-52); Blood Gas Operator Identificat GD; Blood Gas Sample Site Not specified; Blood Gas Sample Type Not specified; Carboxyhemoglobin 1.9 %THgb (0.4-20.1); HGB O2 Sat 69.5 % (95-100); Methemoglobin 0.9 % (0.4-1.5); Total Hemoglobin 10.6 g/dL (14-18)
[2023-09-19 08:04] LABS: Arterial Blood Gas Hematocrit 28.7 % (42-52); Blood Gas Operator Identificat GD; Blood Gas Sample Site Not specified; Blood Gas Sample Type Not specified; HGB O2 Sat 68.2 % (95-100); Methemoglobin 0.9 % (0.4-1.5); Total Hemoglobin 9.3 g/dL (14-18)
[2023-09-19 08:07] LABS: Arterial Blood Gas Hematocrit 23.1 % (42-52); Blood Gas Operator Identificat GD; Blood Gas Sample Site Not specified; Blood Gas Sample Type Not specified; Carboxyhemoglobin 2.1 %THgb (0.4-20.1); HGB O2 Sat 72.5 % (95-100); Total Hemoglobin 7.5 g/dL (14-18)
[2023-09-19 08:09] LABS: Arterial Blood Gas Hematocrit 13.7 % (42-52); Blood Gas Operator Identificat GD; Blood Gas Sample Site Not specified; Blood Gas Sample Type Not specified; Carboxyhemoglobin 2.3 %THgb (0.4-20.1); HGB O2 Sat 70.7 % (95-100); Methemoglobin 1.3 % (0.4-1.5); Total Hemoglobin 4.5 g/dL (14-18)
[2023-09-19] MEDS: isosorbide mononitrate ER 30 mg Tablet PO (09:05)
[2023-09-19] MEDS: loratadine 10 mg Tablet PO (09:05)
[2023-09-19] MEDS: predniSONE 5 mg Tablet PO (09:05)
[2023-09-19] MEDS: montelukast sodium 10 mg Tablet PO (09:05)
[2023-09-19] MEDS: ascorbic acid 500 mg Tablet PO (09:05)
[2023-09-19] MEDS: ipratropium 0.5 mg/2.5 mL Neb INHALATION (11:23)
[2023-09-19] MEDS: albuterol 2.5 mg/3 mL Neb INHALATION (11:24)
--- NOTE | 2023-09-19 13:31 | PC.NURSE ---
Discharge instructions given to patient and caregiver. IV removed. puncture sites asymptomatic. Patient dressed and wheeled to private vehicle. Primary caregiver driving. Belongings with patient.
== END 2023-09-19 13:20 | disposition home or self-care (01) ==
LOC: CCL 05:42 → ICU 08:23
PROVIDERS: PCP Family Medicine; Visit Provider Internal Medicine Cardiovascular Disease
DX: I25.10 Atherosclerotic heart disease of native coronary artery without angina pectoris (principal); I10 Essential (primary) hypertension; Z87.891 Personal history of nicotine dependence; E78.2 Mixed hyperlipidemia; I35.0 Nonrheumatic aortic (valve) stenosis; I73.9 Peripheral vascular disease, unspecified; R94.39 Abnormal result of other cardiovascular function study; N18.2 Chronic kidney disease, stage 2 (mild); M06.041 Rheumatoid arthritis without rheumatoid factor, right hand; M06.042 Rheumatoid arthritis without rheumatoid factor, left hand
CPT/HCPCS: 36415; 80048; 82810; 85025; 93460; 94640; 96365; 96367; 96374; 99152; 99153; C1751; C1769; C1887; C1894; J1644; J2250; J3010; J3490; J7030; J7512; J7613; J7644; Q0163; Q9967

== ENCOUNTER 2023-09-23 20:00 | Outpatient (CLI) | payer OTHER, SELFPAY | END 2023-09-23 20:01 | disposition home or self-care (01) | LOC: SLEEP 09-24 05:23 | PROVIDERS: PCP Family Medicine; Visit Provider Family Medicine | DX: I73.9 Peripheral vascular disease, unspecified (principal); L60.3 Nail dystrophy; N18.2 Chronic kidney disease, stage 2 (mild); D63.1 Anemia in chronic kidney disease; L84 Corns and callosities; D69.6 Thrombocytopenia, unspecified; D64.9 Anemia, unspecified; G47.33 Obstructive sleep apnea (adult) (pediatric); G47.61 Periodic limb movement disorder | CPT/HCPCS: 11056; 11721; 95811 ==

== ENCOUNTER → 2023-10-01 14:51 | Outpatient (BNVA) | payer OTHER, SELFPAY | PROVIDERS: PCP Family Medicine; Visit Provider Nurse Practitioner Family | DX: I35.0 Nonrheumatic aortic (valve) stenosis (principal); Z87.891 Personal history of nicotine dependence; I12.9 Hypertensive chronic kidney disease with stage 1 through stage 4 chronic kidney disease, or unspecified chronic kidney disease; N18.2 Chronic kidney disease, stage 2 (mild) | CPT/HCPCS: 99214 ==

== ENCOUNTER → 2023-10-08 09:09 | Outpatient (BNVA) | payer OTHER, SELFPAY | PROVIDERS: PCP Family Medicine; Visit Provider Anesthesiology Pain Medicine | DX: M21.371 Foot drop, right foot; M21.372 Foot drop, left foot; M79.671 Pain in right foot; M79.672 Pain in left foot; M47.814 Spondylosis without myelopathy or radiculopathy, thoracic region; M47.816 Spondylosis without myelopathy or radiculopathy, lumbar region | CPT/HCPCS: 99205 ==

== ENCOUNTER 2023-10-15 15:38 | Outpatient (CLI) | payer OTHER, SELFPAY ==
--- NOTE | 2023-10-15 15:47 | MR_ITS ---
WS: [id number] MRI LUMBAR SPINE NONCONTRAST TECHNIQUE: Sagittal T1, T2 and STIR imaging. Axial T1 and T2 imaging. CLINICAL INFORMATION: DEGENERATIVE ARTHRITIS COMPARISON: None. FINDINGS: Lumbar scoliosis convex LEFT. No acute compression. Multilevel disc bulging throughout the lumbar spi ne. Prominent central disc protrusion at T11-T12 with slight cephalad extension posterior to the T11 vertebral body with mild central canal stenosis. This is only covered on the axial imaging. Anterolisthesis C4 on C5 seen on the cervical spine dot net developer imaging with mild to moderate central canal stenosis at C5-6 with slight impingement on the cervical cord. This could further evaluated with cer vical spine MRI. L1-L2: Disc osteophyte complex with endplate ridging. Mild central canal stenosis. Impingement RIGHT subarticular recess and traversing RIGHT L2 nerve root. Mild facet arthropathy. Moderate LEFT and mil d RIGHT foraminal narrowing. L2-L3: Disc osteophyte complex with endplate ridging. Impingement on the RIGHT subarticular recess an d traversing RIGHT L3 nerve root. Moderate facet arthropathy. Mild RIGHT foraminal narrowing. LEFT fo ramen is patent. Mild facet arthropathy. L3-L4: Disc osteophyte complex with endplate ridging. Slight narrowing the subarticular recess bilate rally. Moderate facet arthropathy. Mild RIGHT foraminal narrowing. LEFT foramen is patent. L4-L5: LEFT subarticular disc protrusion impinges the LEFT subarticular recess and traversing LEFT L5 nerve root in the subarticular recess. Mild to moderate central canal stenosis. Mild to moderate rubi ateral foraminal narrowing. L5-S1: Mild disc bulge with osteophytic ridging. Slight contact traversing S1 nerve roots bilaterall y. Moderate facet arthropathy with small facet effusions with ligamentum flavum hypertrophy. Moderate LEFT foraminal narrowing impinges the exiting LEFT L5 nerve root. RIGHT foramen is patent. Visualized pelvic bony structures: Normal. Paravertebral soft tissues: Normal. IMPRESSION: 1. Lumbar scoliosis. No acute compression fractures. 2. Central disc protrusion T11-T12 with mild central canal stenosis and slight indentation on the th oracic cord only covered on the axial imaging. 3. Mild central canal stenosis L1-2. 4. Mild to moderate central canal stenosis L4-5. 5. Severe LEFT L5-S1 foraminal narrowing impinges the exiting LEFT L5 nerve root. 6. Mild to moderate RIGHT greater than LEFT L4-5 foraminal narrowing. 7. Facet arthropathy worse at LEFT L5-S1. 8. Disc bulging L2-3 impinges the RIGHT subarticular recess and traversing RIGHT L3 nerve root. 9. Subarticular disc protrusion L4-5 impinges the traversing LEFT L5 nerve root in the LEFT subartic ular recess. 10. Small disc osteophyte protrusions in the cervical spine at C5-C6 with indentation and slight fla ttening of the cervical cord. This can be further evaluated with cervical spine MRI.
== END 2023-10-15 15:39 | disposition home or self-care (01) ==
LOC: RAD 15:38
PROVIDERS: PCP Family Medicine; Visit Provider Family Medicine
DX: L57.0 Actinic keratosis (principal); S40.911A Unspecified superficial injury of right shoulder, initial encounter; S80.911A Unspecified superficial injury of right knee, initial encounter; X58.XXXA Exposure to other specified factors, initial encounter; L57.8 Other skin changes due to chronic exposure to nonionizing radiation; L81.4 Other melanin hyperpigmentation; D22.62 Melanocytic nevi of left upper limb, including shoulder; M47.817 Spondylosis without myelopathy or radiculopathy, lumbosacral region; M25.78 Osteophyte, vertebrae; M48.07 Spinal stenosis, lumbosacral region; M51.36 Other intervertebral disc degeneration, lumbar region
CPT/HCPCS: 17000; 72148; 99214

== ENCOUNTER 2023-10-21 18:26 | Emergency (ER) | payer OTHER, SELFPAY ==
[2023-10-21 18:31] VITALS: BP 128/65; PULSE 80; RESP 16; TEMP 36.7; O2SAT 94
--- NOTE | 2023-10-21 19:20 | CTR_ITS ---
PROCEDURE INFORMATION: Exam: CT Head Without Contrast Exam date and time: 10/21/2023 7:39 PM Age: 83 years old Clinical indication: Injury or trauma; Fall; Blunt trauma (contusions or hematomas); Additional info: Trauma/fall TECHNIQUE: Imaging protocol: Computed tomography of the head without contrast. Radiation optimization: All CT scans at this facility use at least one of these dose optimization techniques: automated exposure control; mA and/or kV adjustment per patient size (includes targeted exams where dose is matched to clinical indication); or iterative reconstruction. COMPARISON: CT head wo con* [id number] 12/24/2017 12:57 PM RADIATION DOSE METRICS: Total DLP (mGy-cm): 2225 FINDINGS: Brain: No acute intracranial hemorrhage. No acute territorial region of gonzalez-white dedifferentiation. No extra-axial collection. No mass effect or midline shift. Mild burden of nonspecific white matter hypoattenuation, likely chronic microvascular ischemic change. Generalized parenchymal volume loss. Unchanged small remote left cerebellar infarct. Cerebral ventricles: No acute hydrocephalus. Paranasal sinuses: Right maxillary sinus mucosal thickening with frothy secretions. Right maxillary sinus wall maribell osteogenesis, consistent with chronic inflammation. Mastoid air cells: Visualized mastoid air cells are well aerated. Orbital cavities: No acute abnormality. Bones/joints: No acute calvarial fracture. Soft tissues: Small left parietal scalp hematoma and laceration. CT/CT head wo con* [id number] IMPRESSION: 1. No acute intracranial hemorrhage or acute calvarial fracture. 2. Small left parietal scalp hematoma and laceration. 3. Right maxillary sinus mucosal thickening with frothy secretions. Correlate for acute sinusitis.
--- NOTE | 2023-10-21 19:20 | CTR_ITS ---
PROCEDURE INFORMATION: Exam: CT Cervical Spine Without Contrast Exam date and time: 10/21/2023 7:39 PM Age: 83 years old Clinical indication: Injury or trauma; Fall; Blunt trauma; Additional info: Trauma/fall TECHNIQUE: Imaging protocol: Computed tomography of the cervical spine without contrast. Radiation optimization: All CT scans at this facility use at least one of these dose optimization techniques: automated exposure control; mA and/or kV adjustment per patient size (includes targeted exams where dose is matched to clinical indication); or iterative reconstruction. COMPARISON: CT cervical spin wo con* [id number] 12/24/2017 1:03 PM RADIATION DOSE METRICS: Total DLP (mGy-cm): 215 FINDINGS: Bones/joints: Craniocervical and facet alignment is preserved. No acute appearing vertebral body compression deformity. Cervical spondylosis. Probable moderate spinal canal stenosis at C5-C6. Severe neural foraminal stenosis on the left at C4-C5. Multilevel moderate neural foraminal stenoses. Lungs: Scarring in the left lung apex. Soft tissues: Unremarkable. CT/CT cervical spin wo con* [id number] IMPRESSION: No acute fracture or traumatic malalignment.
--- NOTE | 2023-10-21 19:25 | W.ED.FALL ---
HPI - Fall General: Chief Complaint: Fall Stated Complaint: Fall Time Seen by Provider: 10/21/23 18:40 History of Present Illness: 83-year-old male presents to the emergency department with complaints of a laceration to the left side of scalp after falling backwards and hitting his head on a stationary object. He is accompanied by a family member who states there was no loss of consciousness. He denies nausea vomiting dizziness or lightheaded feeling. He states he was attempting to get into his lift chair and had a misstep falling backwards. He does have a 4 cm laceration that is curvilinear in appearance and approximately 0.25 mm in depth to the left parietal region of the scalp. 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 Mother Lung disease Social History Smoking and tobacco/nicotine status: former use of tobacco/nicotine Quit status (tobacco/nicotine): has quit using Year quit tobacco: 1969 - PPD x 25 Years Former quit date comment: smoked 40+ years Alcohol intake: former Year of sobriety/quit date alcohol: 1989 Substance/Drug Use: never Caregiver/support person: Yes Lives independently: Yes Household members: caregiver Current occupational status: retired and disabled Do you think of yourself as: Straight/Heterosexual Current gender identity: Male Physical Exam Narrative: EXAM NARRATIVE: Constitutional: the patient appears well nourished and with normal development. Vital signs reviewed as documented. GCS 15, alert and oriented x 4 HENMT: Left parietal region with a 4 cm curvilinear laceration that is 0.25 mm in depth-approximately. External ears normal appearance without drainage. Nose without drainage, normal appearance. Mucus membranes moist. Neck is supple, No jugular venous distension, trachea is midline, no palpable step-offs, no crepitus, exaggerated lordosis noted. Flexion, extension and lateral rotation is without pain. Eyes: Pupils are equal, round, reactive to light and accommodation. No scleral icterus. Extra-ocular movement are intact. Thorax is symmetrical and with equal rise and fall with respirations. Resp: Lungs are clear to auscultation. No wheezes, rales, crackles or ronchi at present. Cardio: Regular rate and rhythm. Positive S1, S2. No appreciable murmurs, rubs or gallops. GI: Abdominal exam reveals normal bowel sounds to all quadrants. Soft, non-tender to palpation. Extremity: Extremities are non-edematous and both femoral and pedal pulses are 2+ and equal bilaterally. Moves all extremities well, sensation in all extremities. Neuro: Alert and oriented x4, person, place, time and situation. Cranial nerves II through XII are grossly intact, there is no focal neurological deficits that I can appreciate at present. Motor strength in the upper and lower extremities are equal and bilateral 5/5. Psych: Cooperative, calm, normal thought process, appropriate judgment. Skin: No lesions, rashes. 4 cm curvilinear laceration to the left parietal scalp region. Back: Symmetrical, no obvious deformity, No CVA tenderness. Nontender to palpation, no obvious deformity, no crepitus, no palpable step-offs. Course ED course: Laceration Repair: The patient verbally consents to a wound repair. A time out was performed. Side and sight are verified. Patient identification is verified. The wound is anesthetized with- 5ml of 1% Lidoaine with epinephrine It is then copiously irrigated with sterile saline and cleansed with saline and betadine mixture. The wound measures [-4 cm-] in length by [-0.25 mm-] in depth. It is approximated using surgical jaya Total number [ 9 ]. Good approximation is achieved. Hemostasis is maintained. It is dressed with antibiotic ointment and a bulky dressing. Follow-up instructions were provided to the patient. The patient was educated on the signs of infection and return precautions. The patient was advised to follow-up with a medical provider in 7-10 days to have the wound evaluated for possible suture removal. Vital Signs: Vital signs: Vital Signs Temperature 98.0 F 10/21/23 18:31 Pulse Rate 80 10/21/23 18:31 Respiratory Rate 16 10/21/23 18:31 Blood Pressure 128/65 10/21/23 18:31 Pulse Oximetry 94 10/21/23 18:31 Oxygen Delivery Me thod Room Air 10/21/23 18:31 MDM - Fall Medical Decision Making Physical exam completed and documented I will obtain a CT scan of the head and cervical spine given the mechanism of the fall to rule out acute intracranial injury and also CT cervical spine to rule out cervical spine fracture. Will provide suture repair as noted. Medical Records I reviewed the patient's medical records. Lab Data Radiology Impressions Cervical Spine CT 10/21/23 19:20 IMPRESSION: No acute fracture or traumatic malalignment. Head CT 10/21/23 19:20 IMPRESSION: 1. No acute intracranial hemorrhage or acute calvarial fracture. 2. Small left parietal scalp hematoma and laceration. 3. Right maxillary sinus mucosal thickening with frothy secretions. Correlate for acute sinusitis. All radiology interpretation(s) finalized by discharge Discharge Plan Discharge Patient Disposition: Home Clinical Impression: Laceration of scalp Qualifiers: Encounter type: initial encounter Qualified Code(s): S01.01XA - Laceration without foreign body of scalp, initial encounter Accidental fall Qualifiers: Encounter type: initial encounter Qualified Code(s): W19.XXXA - Unspecified fall, initial encounter Condition: Stable Prescriptions: No Action ipratropium bromide 17 mcg/actuation HFA aerosol inhaler 2 puff inhalation QID montelukast 10 mg tablet 10 mg PO DAILY tramadol 50 mg tablet 50 mg PO BID PRN (Reason: pain) Qty: 45 0RF isosorbide mononitrate 30 mg tablet extended release 24 hr 30 mg PO DAILY Qty: 30 5RF Orencia ClickJect 125 mg/mL auto-injector 125 mg SUBCUT .Q7days Qty: 4 3RF omeprazole 40 mg capsule,delayed release(DR/EC) 40 mg PO QAM Qty: 90 1RF prednisone 5 mg tablet 5 mg PO DAILY Qty: 90 1RF sulfasalazine 500 mg tablet 500 mg PO BID Qty: 180 1RF Rx Instructions: give with food (meal/snack) albuterol sulfate 90 mcg/actuation Hfa Aerosol Inhaler 2 puff INHALATION QID PRN (Reason: Shortness Of Breath) ascorbic acid (vitamin C) 500 mg Tablet 500 mg PO DAILY vitamin B complex Tablet 1 tab PO QAM cholecalciferol (vitamin D3) 2,000 unit Tablet 2,000 unit PO DAILY loratadine 10 mg Tablet 10 mg PO DAILY vitamin E 670 mg (1,000 unit) Capsule 1 cap PO DAILY nystatin 100,000 unit/mL Suspension See Rx Instructions .ROUTE .COMPLEX Rx Instructions: swish and swallow 10ml po tid for oral thrush levalbuterol HCl 0.63 mg/3 mL Solution For Nebulization 0.63 mg INHALATION QID PRN (Reason: copd) folic acid 400 mcg Tablet 0.4 mg PO DAILY fluticasone propion-salmeterol 100-50 mcg/dose Blister With Device 1 inh INHALATION BID witch wenceslao 50 % Pads, Medicated 1 pad TOPICAL DAILY PRN (Reason: Hemorrhoids) PreserVision AREDS-2 250-90-40-1 mg Capsule 1 tab PO BID vitamin A acetate 3,000 mcg (10,000 unit) Tablet, Sublingual 3,000 mcg PO DAILY Discharge Orders: Discharge ED (Routine); Ordered 10/21/23 Ordered By: Mayco Quintana Referrals: Regina Morales MD [Primary Care Provider] - Discharge Diet: Usual diet Discharge Activity: Resume usual activity Patient Instructions: Opioid Safety, Pain Management Activity Restrictions/Additional Instructions: Activity Restrictions/Additional Instructions: Thank you for choosing [facility] for your healthcare needs today. Please realize that you were seen in the Emergency Department and that we are providing you with an emergency medical screening exam and this may not be a complete and all inclusive of all the testing and or medical work-up that you may need to determine your ailment or severity of your illness. It is very important that you follow-up as instructed with your Primary care provider or Specialist for additional evaluation and to discuss your medical treatment plan. You may return to the Emergency Department should you have concerns or if your condition changes or worsens in any way. Follow-up in 7 to 10 days to have your wound evaluated for possible surgical staple removal. Coding Level of Care Code ED Grain Operator for Tori Saldana
[2023-10-21 20:40] VITALS: PULSE 81; RESP 18; O2SAT 92
[2023-10-21] MEDS: neomycin-poly-bacitracin oint 0.9 gm Pkt 1 APPLIC TOPICAL (20:40)
== END 2023-10-21 20:43 | disposition home or self-care (01) ==
PROVIDERS: Emergency Provider Internal Medicine; PCP Family Medicine
DX: S01.01XA Laceration without foreign body of scalp, initial encounter (principal); Z87.891 Personal history of nicotine dependence; Z85.46 Personal history of malignant neoplasm of prostate; I12.9 Hypertensive chronic kidney disease with stage 1 through stage 4 chronic kidney disease, or unspecified chronic kidney disease; N18.2 Chronic kidney disease, stage 2 (mild); E78.5 Hyperlipidemia, unspecified; J44.9 Chronic obstructive pulmonary disease, unspecified; H35.30 Unspecified macular degeneration; W18.39XA Other fall on same level, initial encounter
CPT/HCPCS: 12002; 70450; 72125; 99284

== ENCOUNTER 2023-10-27 09:09 | Emergency (ER) | payer OTHER, SELFPAY ==
[2023-10-27] VITALS (10 sets, daily range): BP systolic 120–147; BP diastolic 61–74; PULSE 64–89; RESP 20; TEMP 36.6; O2SAT 85–96; BMI 22.8
--- NOTE | 2023-10-27 09:20 | XR_ITS ---
WS: [id number] Exam: XR chest 1V portable [id number] Date/Time of Exam: 10/27/2023 9:20 AM Reason For Exam: dyspnea/cough Comparison 02/10/2023. The lungs are fully expanded and clear. Normal cardiomediastinal silhouette. No pleural effusions. Mi ld plaque atelectasis in the RIGHT base. Degenerative change and mild thoracic dextroscoliosis. Moder ate DJD of both shoulders. IMPRESSION: 1. No acute cardiopulmonary finding. No change.
--- NOTE | 2023-10-27 09:24 | ECG_ITS ---
[facility] Test Date: 2023-10-27 Pat Name: Glenn Kong Department: Room: Gender: Male Fabric Normalizer: : 1940 Requested By: Luis Daniel Benson Order Number: [id number] Tiki MD: Nikki Finn M.D. Measurements Intervals [place] Rate: 70 P: 44 SD: 173 QRS: -38 QRSD: 100 T: 51 QT: 368 QTc: 399 Interpretive Statements SINUS RHYTHM LEFT AXIS DEVIATION [QRS AXIS < -30] INCOMPLETE RIGHT BUNDLE BRANCH BLOCK [90+ ms QRS DURATION, TERMINAL R IN V1/V2, 40+ ms S IN I/aVL/V4/V5/V6] MINIMAL VOLTAGE CRITERIA FOR LVH, CONSIDER NORMAL VARIANT [MEETS CRITERIA IN ONE OF: R(aVL), S(V1), R(V5), R(V5/V6)+S(V1)] PROBABLE SEPTAL MYOCARDIAL INFARCTION , PROBABLY OLD [35 ms Q WAVE IN V1/V2] Compared to ECG 04/15/2023 11:28:50 Incomplete right bundle-branch block now present Myocardial infarct finding now present Electronically Signed On 10-28-2023 0:37:05 MARINE OPERATIONS COORDINATOR by Nikki Finn M.D. [id number]
[2023-10-27] MEDS: dexamethasone 10 mg/mL INJ IM (09:30)
[2023-10-27] MEDS: ipratropium-albuterol 3 mL Neb INHALATION ×2 (09:32→10:48)
[2023-10-27 09:56] LABS: Basophils % 0.3 %; Eosinophils # 0.2 10^3/uL (0.0-0.8); Eosinophils % 1.7 %; Hematocrit 33.4 % (37-53); Lymphocytes # 3.3 10^3/uL (0.8-4.8); Lymphocytes % 32.3 %; Mean Corpuscular HGB Conc 33.8 g/dL (30-55); Mean Corpuscular Hemoglobin 32.8 pg (27-33); Mean Corpuscular Volume 96.8 fl (82-101); Mean Platelet Volume 8.5 fL (7.4-10.4); Monocytes # 0.6 10^3/uL (0.2-0.9); Monocytes % 6.1 %; Neutrophils # 5.94 10^3/uL (1.8-7.7); Neutrophils % 58.2 %; Nucleated Red Blood Cells % 0 %; Platelet Count 156 10^3/cmm (157-399); Red Blood Count 3.45 10^6/uL (3.85-5.65); Red Cell Distribution Width 14.6 % (12.1-15.1); White Blood Count 10.19 10^3/uL (3.29-11.43)
[2023-10-27 10:14] LABS: Alanine Aminotransferase 22 U/L (0-41); Albumin Level 3.8 g/dL (3.5-5.2); Alkaline Phosphatase 100 U/L (40-130); Anion Gap 13.7 (5-19); Aspartate Amino Transferase 22 U/L (0-40); Blood Urea Nitrogen 17 mg/dL (8-23); Calcium 8.6 mg/dL (8.5-10.5); Carbon Dioxide 27 mmol/L (22-29); Chloride 94 mmol/L (98-107); Creatinine Clr Calc Pharmacy 46.0923; Globulin 2.3 g/dL (1.3-4.6); Glucose 113 mg/dL (65-115); Osmolality Calculated 272 mOsm/kg (285-295); Potassium 4.7 mmol/L (3.5-5.1); Sodium 130 mmol/L (136-145); Total Bilirubin 0.6 mg/dL (0.15-1.2); Total Protein 6.1 g/dL (6.6-8.7)
--- NOTE | 2023-10-27 10:39 | PC.PHAR ---
pt states he has home health nurse but states he doesnt know the name of the home health company-pt brought in a [facility] med list dated 10/22/23-pt also had a phone number [phone] with his paperwork states he is unsure whose phone number that it is-called number no answer-medications entered are from the [facility] med list the pt brought in -albuterol 0.083% 1v q6h prn was marked out along with clotrimazole 10mg nikos 2 troches five times a day was also marked out-
--- NOTE | 2023-10-27 10:47 | ED_ITS ---
HPI - SOB/Dyspnea 2 General: Chief Complaint: Shortness of Breath/Dyspnea Stated Complaint: possible pneumonia? Time Seen by Provider: 10/27/23 09:17 Source: patient Mode of arrival: ambulatory History of Present Illness: HPI Narrative: 83-year-old male presents emergency room concerned he has pneumonia is tachypneic, mild productive cough slightly increased from his baseline denies any hemoptysis no chest pain. No fever at home. Denies vomiting or diarrhea myalgias or headache. MD elicited complaint: shortness of breath and cough Pertinent past history: COPD Onset (ago): day(s) Timing: constant Severity: moderate Exacerbating factors: exertion Relieving factors: oxygen, rest and bronchodilators Known history of: COPD Associated symptoms: Reports chest congestion; Deny abdominal pain, chest pain, fever(s) or hemoptysis Treatment prior to arrival: oxygen and bronchodilator Review of Systems 2 Const: Denies: fever(s) or chills Card: Denies: chest pain Resp: Reports: dyspnea, productive cough, wheezing and chest congestion; Denies: hemoptysis GI: Denies: abdominal pain : Denies: dysuria, urinary frequency or urinary urgency Musc: Denies: neck pain or back pain Skin/Breast: Denies: rash PFSH ED 2 PFSH: Medical History Ambulates with cane Bipolar 1 disorder Carcinoma in situ of prostate Fine motor impairment Cardiac murmur MDD (major depressive disorder) Legal blindness Intervertebral disc degeneration PTSD (post-traumatic stress disorder) History of prostate cancer History of scarlet fever Neuropathy Chronic kidney disease (CKD) Stage 2 Hypertension Hyperlipidemia 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 Mother Lung disease Social History Smoking and tobacco/nicotine status: former use of tobacco/nicotine Quit status (tobacco/nicotine): has quit using Year quit tobacco: 1970 - 3 PPD x 25 Years Former quit date comment: smoked 40+ years Alcohol intake: former Year of sobriety/quit date alcohol: 1989 Substance/Drug Use: never Caregiver/support person: Yes Lives independently: Yes Household members: caregiver Current occupational status: retired and disabled Do you think of yourself as: Straight/Heterosexual Current gender identity: Male Physical Exam 2 Const: GENERAL APPEARANCE: cooperative and comfortable O RIENTATION/CONSCIOUSNESS: Yes awake, Yes oriented to person, Yes oriented to place and Yes oriented to time HENMT: COMMON NORMALS: normocephalic, atraumatic and hearing grossly normal bilaterally HEAD & SCALP: normocephalic and atraumatic Resp: COMMON NORMALS: normal respiratory effort, No retractions and No use of accessory muscles AUSCULTATION: rhonchi and wheezes Cardio: COMMON NORMALS: regular rate, regular rhythm and No murmurs present (Cardio) RATE: regular rate RHYTHM: regular rhythm GI: COMMON NORMALS: Soft to palpation and No hepatosplenomegaly present A USCULTATION: Yes normoactive bowel sounds PALPATION: Yes Soft to palpation, No Tenderness to palpation present (GI), No Guarding due to palpation present (GI) and Yes No hepatosplenomegaly present Extremity: COMMON NORMALS: normal to inspection, capillary refill normal, no clubbing, cyanosis or edema, no calf tenderness and no pedal edema Neuro: SENSORIUM/ORIENTATION: Yes oriented to person, Yes oriented to place and Yes oriented to time Skin: COMMON NORMALS: no rashes or lesions noted GENERAL SKIN EXAM: no rashes or lesions noted Course 2 Vital Signs: Vital signs: Vital Signs Temperature 97.9 F 10/27/23 09:12 Pulse Rate 85 10/27/23 12:30 Respiratory Rate 20 H 10/27/23 11:04 Blood Pressure 120/67 10/27/23 12:30 Pulse Oximetry 96 10/27/23 12:30 Oxygen Delivery Me thod Nasal Cannula 10/27/23 12:30 Oxygen Flow Rate 2 10/27/23 12:30 MDM - SOB/Dyspnea Medical Decision Making Acute exacerbation COPD improved with steroids and nebulizers. Home O2 testing patient does qualify for home oxygen. Will also discharge home with doxycycline 100 mg twice daily for 10 days return if has further problems. Follow-up with primary care doctor within the week. Differential Diagnosis Likely acute exacerbation of chronic obstructive airways disease Medical Records I reviewed the patient's medical records. Lab Data I reviewed the patient's lab results. 10/27/23 09:45 10/27/23 09:45 Labs/Radiology: Laboratory Results WBC 10.19 10^3/uL (3.29-11.43) 10/27/23 09:45 RBC 3.45 10^6/uL (3.85-5.65) L 10/27/23 09:45 Hgb 11.30 g/dL (11.27-16.99) 10/27/23 09:45 Hct 33.4 % (37-53) L 10/27/23 09:45 MCV 96.8 fl (82-101) 10/27/23 09:45 MCH 32.8 pg (27-33) 10/27/23 09:45 MCHC 33.8 g/dL (30-55) 10/27/23 09:45 RDW 14.6 % (12.1-15.1) 10/27/23 09:45 Plt Count 156 10^3/cmm (157-399) L 10/27/23 09:45 MPV 8.5 fL (7.4-10.4) 10/27/23 09:45 Neut % (Auto) 58.2 % 10/27/23 09:45 Lymph % (Auto) 32.3 % 10/27/23 09:45 Dickson % (Auto) 6.1 % 10/27/23 09:45 Eos % (Auto) 1.7 % 10/27/23 09:45 Baso % (Auto) 0.3 % 10/27/23 09:45 Neut # (Auto) 5.94 10^3/uL (1.8-7.7) 10/27/23 09:45 Lymph # (Auto) 3.3 10^3/uL (0.8-4.8) 10/27/23 09:45 Dickson # (Auto) 0.6 10^3/uL (0.2-0.9) 10/27/23 09:45 Eos # (Auto) 0.2 10^3/uL (0.0-0.8) 10/27/23 09:45 Baso # (Auto) 0.0 10^3/uL (0.0-0.1) 10/27/23 09:45 Nucleated RBC % (auto) 0 % 10/27/23 09:45 Nucleated RBCs # 0.0 /100WBC 10/27/23 09:45 Specimen Type Arterial 10/27/23 10:57 Sample Site Brachial, right 10/27/23 10:57 ABG pH 7.42 (7.35-7.45) 10/27/23 10:57 ABG pCO2 44.2 mmHg (35-45) 10/27/23 10:57 ABG pO2 63.8 mmHg (80.0-100.0) L 10/27/23 10:57 ABG PO2/FiO2 Ratio 0 10/27/23 10:57 ABG HCO3 28.5 mmol/L (22-26) H 10/27/23 10:57 ABG O2 Saturation 92.7 10/27/23 10:57 ABG Base Excess 3.5 mmol/L (-2.0-2.0) H 10/27/23 10:57 Theo Test N/a 10/27/23 10:57 A-a O2 Gradient 3.9 mmHg (5-10) L 10/27/23 10:57 Hematocrit 34.5 % (42-52) L 10/27/23 10:57 Hgb O2 Saturation 90.6 % (95-100) L 10/27/23 10:57 Carboxyhemoglobin 1.3 %THgb (0.4-20.1) 10/27/23 10:57 Methemoglobin 1.0 % (0.4-1.5) 10/27/23 10:57 Total Hemoglobin 11.3 g/dL (14-18) L 10/27/23 10:57 Sodium 130.0 mmol/L (131-143) L 10/27/23 10:57 Potassium 4.5 mmol/L (3.5-5.0) 10/27/23 10:57 Glucose 136.0 mg/dL (70-115) H 10/27/23 10:57 Ionized Calcium 1.2 mmol/L (1.1-1.4) 10/27/23 10:57 O2 Delivery Device Room air 10/27/23 10:57 FiO2 21.0 % 10/27/23 10:57 Coater Smoking Pipe ID Amh 10/27/23 10:57 Sodium 130 mmol/L (136-145) L 10/27/23 09:45 Potassium 4.7 mmol/L (3.5-5.1) 10/27/23 09:45 Chloride 94 mmol/L (98-107) L 10/27/23 09:45 Carbon Dioxide 27 mmol/L (22-29) 10/27/23 09:45 Anion Gap 13.7 (5-19) 10/27/23 09:45 BUN 17 mg/dL (8-23) 10/27/23 09:45 Creatinine 1.1 mg/dL (0.7-1.2) 10/27/23 09:45 GFR Calculation Not Reportable 10/27/23 09:45 Glucose 113 mg/dL (65-115) 10/27/23 09:45 Calculated Osmolality 272 mOsm/kg (285-295) L 10/27/23 09:45 Calcium 8.6 mg/dL (8.5-10.5) 10/27/23 09:45 Total Bilirubin 0.6 mg/dL (0.15-1.2) 10/27/23 09:45 AST 22 U/L (0-40) 10/27/23 09:45 ALT 22 U/L (0-41) 10/27/23 09:45 Alkaline Phosphatase 100 U/L (40-130) 10/27/23 09:45 Total Protein 6.1 g/dL (6.6-8.7) L 10/27/23 09:45 Albumin 3.8 g/dL (3.5-5.2) 10/27/23 09:45 Globulin 2.3 g/dL (1.3-4.6) 10/27/23 09:45 All radiology interpretation(s) finalized by discharge Discharge Plan Discharge Patient Disposition: Home Clinical Impression: Acute exacerbation of chronic obstructive airways disease Condition: Stable Prescriptions: New doxycycline hyclate 100 mg capsule 100 mg PO BID 10 Days Qty: 20 0RF ipratropium-albuterol 0.5 mg-3 mg(2.5 mg base)/3 mL solution for nebulization 3 ml inhalation Q4H PRN (Reason: shortness of breath or wheezing) Qty: 90 0RF prednisone 20 mg tablet 20 mg PO TID Qty: 15 0RF Rx Instructions: 1 p.o. 3 times daily x3 days, 1 p.o. twice daily x2 days, 1 p.o. daily x2 days No Action montelukast 10 mg tablet 10 mg PO QPM tramadol 50 mg tablet 50 mg PO BID PRN (Reason: pain) Qty: 45 0RF isosorbide mononitrate 30 mg tablet extended release 24 hr 30 mg PO DAILY Qty: 30 5RF omeprazole 40 mg capsule,delayed release(DR/EC) 40 mg PO QAM Qty: 90 1RF prednisone 5 mg tablet 5 mg PO DAILY Qty: 90 1RF sulfasalazine 500 mg tablet 500 mg PO BID Qty: 180 1RF Rx Instructions: give with food (meal/snack) albuterol sulfate 90 mcg/actuation Hfa Aerosol Inhaler 2 puff INHALATION QID PRN (Reason: Shortness Of Breath) ascorbic acid (vitamin C) 500 mg Tablet 500 mg PO DAILY vitamin B complex Tablet 1 tab PO QAM cholecalciferol (vitamin D3) 2,000 unit Tablet 2,000 unit PO DAILY loratadine 10 mg Tablet 10 mg PO DAILY nystatin 100,000 unit/mL Suspension 5 ml PO TID Rx Instructions: swish and swallow levalbuterol HCl 0.63 mg/3 mL Solution For Nebulization 0.63 mg INHALATION QID PRN (Reason: copd) folic acid 400 mcg Tablet 400 mcg PO DAILY witch wenceslao 50 % Pads, Medicated 1 pad TOPICAL DAILY PRN (Reason: Hemorrhoids) PreserVision AREDS-2 250-90-40-1 mg Capsule 1 tab PO BID Miralax 17 gram Powder In Packet 17 g PO DAILY Artificial Tears (polyvin alc) 1.4 % Drops 2 drp ophthalmic (eye) QID PRN (Reason: Dry Eye(S)) Zoloft 100 mg Tablet 200 mg PO QAM travoprost 0.004 % Drops 1 drp OPHTHALMIC (EYE) QPM amlodipine 2.5 mg Tablet 2.5 mg PO DAILY doxepin 10 mg Capsule 10 mg PO BEDTIME Mobic 7.5 mg Tablet 7.5 mg PO DAILY trazodone 100 mg Tablet 100 mg PO BEDTIME erythromycin 5 mg/gram (0.5 %) Ointment See Rx Instructions .ROUTE .COMPLEX Rx Instructions: apply 0.25 inch ribbon to affected eyes qam ferrous sulfate 325 mg (65 mg iron) Tablet 325 mg PO TID PRN (Reason: iron deficiency) neomycin-polymyxin B-dexameth Ointment See Rx Instructions .ROUTE .COMPLEX Rx Instructions: apply one-fourth inch ribbon to both eyes at bedtime lisinopril 10 mg Tablet 5 mg PO BEDTIME lidocaine 5 % Adhesive Patch,Medicated See Rx Instructions .ROUTE .COMPLEX Rx Instructions: apply 1 patch to skin site once a day for local anesthesia apply patch and press firmly for 10-15 seconds-keep on for 12 hours and then remove patch for 12 hours brimonidine 0.2 % drops 1 drp ophthalmic (eye) BID bisacodyl 5 mg Tablet,Delayed Release (Dr/Ec) 20 mg PO DAILY PRN (Reason: Constipation) mupirocin 2 % Ointment 1 applic TOPICAL BID Rx Instructions: apply small amount to open wounds until healed Flonase 50 mcg/actuation Clayton,Suspension 1 spray INTRANASAL DAILY Rx Instructions: administer into each nostril doxycycline hyclate 100 mg Tablet 100 mg PO BID aripiprazole 20 mg Tablet 10 mg PO DAILY artificial saliva (yerbas-lyt) Aerosol,Clayton 3 - 5 spray MUCOUS MEMBRANE .EVERY 2 HOURS PRN (Reason: Dry Mouth) vitamin E acetate 100 unit Capsule 100 unit PO DAILY vitamin A acetate 3,000 mcg (10,000 unit) Tablet, Sublingual 3,000 mcg PO DAILY Rx Instructions: (10,000 units) Nutrition Supl Ensure Plus See Rx Instructions .ROUTE .COMPLEX Rx Instructions: drink one canful po tid Orencia ClickJect 125 mg/mL auto-injector 125 mg SUBCUT Q7D calcium citrate 250 mg calcium Tablet 250 mg PO DAILY Discharge Orders: Discharge ED (Routine); Ordered 10/27/23 Ordered By: Luis Daniel Mcgee Other Ambulatory Orders: DME: Oxygen (Order) Location: None Selected Ordered By: Luis Daniel Mcgee Referrals: Regina Morales MD [Primary Care Provider] - Discharge Diet: Usual diet Discharge Activity: Increase activity as tolerated Patient Instructions: COPD (Chronic Obstructive Pulmonary Disease) (ED), Opioid Safety, Pain Management Activity Restrictions/Additional Instructions: Thank you for choosing [facility] for your healthcare needs today. Please realize this is an emergency room and that we are providing you with a medical screening exam and this may not be complete and all inclusive of all the testing and or work up that you may need to determine your ailment or severity of your illness. It is very important that you follow up as instructed or that you return to the Emergency Department should you have concerns or if your condition changes or worsens in any way. Coding Level of Care Code ED Utility Bag Assembler for Tori Saldana
[2023-10-27 11:08] LABS: ABG PCO2 44.2 mmHg (35-45); ABG PH Result 7.42 (7.35-7.45); Alveolar-Arterial Oxygen Gradi 3.9 mmHg (5-10); Arterial Blood Gas Hematocrit 34.5 % (42-52); Base Excess ABG 3.5 mmol/L (-2.0-2.0); Blood Gas Operator Identificat AMH; Blood Gas Sample Site Brachial, right; Blood Gas Sample Type Arterial; Carboxyhemoglobin 1.3 %THgb (0.4-20.1); HCO3 ABG 28.5 mmol/L (22-26); HGB O2 Sat 90.6 % (95-100); Ionized Calcium Level - ABG 1.2 mmol/L (1.1-1.4); Oxygen Device ROOM AIR; Oxygen Saturation ABG 92.7; PO2 ABG 63.8 mmHg (80.0-100.0); PO2 FiO2 Ratio Arterial Blood 0; Potassium Level - ABG 4.5 mmol/L (3.5-5.0); Total Hemoglobin 11.3 g/dL (14-18)
--- NOTE | 2023-10-27 11:39 | PC.NURSE ---
PATIENT PLACED ON 2L OF OXYGEN DUE TO OXYGEN SATURATION OF 88%.
--- NOTE | 2023-10-27 12:05 | DCPLANNER ---
I called Jacob (patients person to contact) and he stated that the patient does not have medicare anymore and [facility]. [facility]
--- NOTE | 2023-10-27 12:47 | PC.SOCIAL ---
O2 Orders and documentation faxed to November at [facility] for delivery of oxygen. She states that she is not sure how long it will take for delivery, but she will place orders now. Oxygen will come from [facility] Their phone number is [phone].
== END 2023-10-27 14:15 | disposition home or self-care (01) ==
PROVIDERS: Emergency Provider Family Medicine; PCP Family Medicine
DX: J44.1 Chronic obstructive pulmonary disease with (acute) exacerbation (principal); Z87.891 Personal history of nicotine dependence; Z85.46 Personal history of malignant neoplasm of prostate; I12.9 Hypertensive chronic kidney disease with stage 1 through stage 4 chronic kidney disease, or unspecified chronic kidney disease; N18.2 Chronic kidney disease, stage 2 (mild); E78.5 Hyperlipidemia, unspecified; H35.30 Unspecified macular degeneration
CPT/HCPCS: 36415; 36600; 71045; 80051; 80053; 82330; 82805; 85025; 93005; 94640; 96372; 99285; J1100

== ENCOUNTER → 2023-10-28 14:56 | Outpatient (BNVA) | payer OTHER, MEDICARE, SELFPAY | PROVIDERS: PCP Family Medicine; Visit Provider Nurse Practitioner Family | DX: L57.8 Other skin changes due to chronic exposure to nonionizing radiation (principal); L81.4 Other melanin hyperpigmentation; T14.8XXA Other injury of unspecified body region, initial encounter; X58.XXXA Exposure to other specified factors, initial encounter | CPT/HCPCS: 99214 ==

== ENCOUNTER → 2023-11-06 09:53 | Outpatient (BNVA) | payer OTHER, MEDICARE, SELFPAY | PROVIDERS: PCP Family Medicine; Visit Provider Anesthesiology Pain Medicine | DX: M21.371 Foot drop, right foot; M21.372 Foot drop, left foot; M79.671 Pain in right foot; M79.672 Pain in left foot; M47.814 Spondylosis without myelopathy or radiculopathy, thoracic region; M47.816 Spondylosis without myelopathy or radiculopathy, lumbar region; M25.561 Pain in right knee; M25.562 Pain in left knee; M25.511 Pain in right shoulder; M25.512 Pain in left shoulder; M25.541 Pain in joints of right hand; M25.542 Pain in joints of left hand | CPT/HCPCS: 99214 ==

== ENCOUNTER 2023-11-14 14:48 | Inpatient (IN) | payer OTHER, SELFPAY ==
[2023-11-14] VITALS (10 sets, daily range): BP systolic 101–113; BP diastolic 49–59; PULSE 74–89; RESP 15–24; TEMP 36.7; O2SAT 92–99
--- NOTE | 2023-11-14 14:55 | XRR_ITS ---
PROCEDURE INFORMATION: Exam: XR Chest Exam date and time: 11/14/2023 3:26 PM Age: 83 years old Clinical indication: Cough and dyspnea; Additional info: Dyspnea/cough TECHNIQUE: Imaging protocol: Radiologic exam of the chest. Views: 1 view. COMPARISON: CR XR chest 1V portable [id number] 10/27/2023 9:28 AM FINDINGS: Lungs: Both lungs demonstrate chronic interstitial coarsening. No lung mass or infiltrate. Pleural spaces: Unremarkable. No pleural effusion. No pneumothorax. Heart/Mediastinum: Unremarkable. No cardiomegaly. Bones/joints: Unremarkable. XR/XR chest 1V portable [id number] IMPRESSION: No acute findings.
--- NOTE | 2023-11-14 15:19 | W.ED.SOB ---
HPI - SOB/Dyspnea General: Chief Complaint: Shortness of Breath/Dyspnea Stated Complaint: [facility], fever, sob Time Seen by Provider: 11/14/23 14:54 Source: patient Mode of arrival: ambulatory History of Present Illness: HPI Narrative: 83-year-old male who presents emergency room complaining of fever and shortness of breath fever and productive cough. Patient has a history of COPD states he has not been feeling well for the last week or more spitting and progressively worse he has not had any chest pain denies any abdominal pain no hemoptysis. He has increase in his baseline sputum production cough. He is normally on 3 L of oxygen by nasal cannula. On arrival here he is maintaining his sats on his usual 3 L. He has been using more albuterol treatments states he used 1 just prior to coming and still feels like he is having difficulty breathing and is wheezing. MD elicited complaint: shortness of breath and cough Pertinent past history: COPD Onset (ago): week(s) Timing: constant and progressively worsening Exacerbating factors: nothing and lying flat Associated symptoms: Reports chest congestion, cough and orthopnea; Deny abdominal pain, chest pain, diaphoresis, dizziness, extremity pain, fever(s), hemoptysis, lightheadedness, myalgias, nausea, palpitations, paresthesias, polydipsia, polyuria, rash, sense of impending doom, syncope, vomiting or other Review of Systems Const: Denies: fever(s), chills or diaphoresis Card: Reports: orthopnea; Denies: chest pain, palpitations, lightheadedness or syncope Resp: Reports: chest congestion; Denies: dyspnea or hemoptysis GI: Denies: abdominal pain, nausea or vomiting : Denies: dysuria, urinary frequency or urinary urgency Musc: Denies: neck pain, back pain or extremity pain Skin/Breast: Denies: rash Neuro: Denies: dizziness Endo: Denies: polyuria or polydipsia PFS ED PFSH: Medical History Ambulates with cane Bipolar 1 disorder Carcinoma in situ of prostate Fine motor impairment Cardiac murmur MDD (major depressive disorder) Legal blindness Intervertebral disc degeneration PTSD (post-traumatic stress disorder) History of prostate cancer History of scarlet fever Neuropathy Chronic kidney disease (CKD) Stage 2 Hypertension Hyperlipidemia 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 Mother Lung disease Social History Smoking and tobacco/nicotine status: former use of tobacco/nicotine Quit status (tobacco/nicotine): has quit using Year quit tobacco: 1969 - PPD x 25 Years Former quit date comment: smoked 40+ years Alcohol intake: former Year of sobriety/quit date alcohol: 1989 Substance/Drug Use: never Caregiver/support person: Yes Lives independently: Yes Household members: caregiver Current occupational status: retired and disabled Do you think of yourself as: Straight/Heterosexual Current gender identity: Male Physical Exam Const: GENERAL APPEARANCE: cooperative and comfortable ORIENTATION/CONSCIOUSNESS: Yes awake, Yes oriented to person, Yes oriented to place and Yes oriented to time HENMT: COMMON NORMALS: normocephalic, atraumatic and hearing grossly normal bilaterally HEAD & SCALP: normocephalic and atraumatic Resp: COMMON NORMALS: normal respiratory effort, No retractions and No use of accessory muscles AUSCULTATION: rhonchi and wheezes Cardio: COMMON NORMALS: regular rate, regular rhythm and No murmurs present (Cardio) RATE: regular rate RHYTHM: regular rhythm GI: COMMON NORMALS: Soft to palpation and No hepatosplenomegaly present AUSCULTATION: Yes normoactive bowel sounds PALPATION: Yes Soft to palpation, No Tenderness to palpation present (GI), No Guarding due to palpation present (GI) and Yes No hepatosplenomegaly present Extremity: COMMON NORMALS: normal to inspection, capillary refill normal, no clubbing, cyanosis or edema, no calf tenderness and no pedal edema Neuro: SENSORIUM/ORIENTATION: Yes oriented to person, Yes oriented to place and Yes oriented to time Skin: COMMON NORMALS: no rashes or lesions noted GENERAL SKIN EXAM: no rashes or lesions noted Course Vital Signs: Vital signs: Vital Signs Temperature 98.2 F 11/15/23 07:56 Pulse Rate 76 11/15/23 11:16 Respiratory Rate 20 H 11/15/23 11:16 Blood Pressure 105/64 11/15/23 07:56 Pulse Oximetry 96 11/15/23 11:16 Oxygen Delivery Me thod Nasal Cannula 11/15/23 11:16 Oxygen Flow Rate 2 11/15/23 11:16 MDM - SOB/Dyspnea Medical Decision Making New onset heart failure with underlying pneumonia as well. Discussed with hospitalist will admit. Elevated troponin Mild anemia hemoglobin down 1 point. He is not having any chest pain is no acute ST changes. Cover with antibiotics aggressive pulmonary toilet. No tachycardia. He is maintaining oxygen saturations on his usual baseline. He is not having any chest pain at this time, suspect his elevated troponin is due to heart strain. His second troponin is trending down Differential Diagnosis Likely acute exacerbation of chronic obstructive airways disease, congestive heart failure and community acquired pneumonia Medical Records I reviewed the patient's medical records. Lab Data I reviewed the patient's lab results. 11/15/23 03:07 11/15/23 03:07 Labs/Radiology: Radiology Impressions Chest X-Ray 11/14/23 14:55 IMPRESSION: No acute findings. Knee X-Ray 11/14/23 17:12 IMPRESSION: No acute findings. 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 Chest CTA 11/14/23 18:08 IMPRESSION: 1. Multifocal pneumonia. 2. Dilated pulmonary arterial trunk suggestive of pulmonary hypertension in the appropriate clinical context. Laboratory Results WBC 16.19 10^3/uL (3.29-11.43) H 11/14/23 15:20 RBC 3.08 10^6/uL (3.85-5.65) L 11/14/23 15:20 Hgb 10.30 g/dL (11.27-16.99) L 11/14/23 15:20 Hct 30.7 % (37-53) L 11/14/23 15:20 MCV 99.7 fl (82-101) 11/14/23 15:20 MCH 33.4 pg (27-33) H 11/14/23 15:20 MCHC 33.6 g/dL (30-55) 11/14/23 15:20 RDW 15.4 % (12.1-15.1) H 11/14/23 15:20 Plt Count 129 10^3/cmm (157-399) L 11/14/23 15:20 MPV 10.5 fL (7.4-10.4) H 11/14/23 15:20 Neut % (Auto) 84.0 % 11/14/23 15:20 Lymph % (Auto) 10.5 % 11/14/23 15:20 [place] % (Auto) 4.8 % 11/14/23 15:20 Eos % (Auto) 0.0 % 11/14/23 15:20 Baso % (Auto) 0.1 % 11/14/23 15:20 Neut # (Auto) 13.59 10^3/uL (1.8-7.7) H 11/14/23 15:20 Lymph # (Auto) 1.7 10^3/uL (0.8-4.8) 11/14/23 15:20 [place] # (Auto) 0.8 10^3/uL (0.2-0.9) 11/14/23 15:20 Eos # (Auto) 0.0 10^3/uL (0.0-0.8) 11/14/23 15:20 Baso # (Auto) 0.0 10^3/uL (0.0-0.1) 11/14/23 15:20 Nucleated RBC % (auto) 0 % 11/14/23 15:20 Nucleated RBCs # 0.0 /100WBC 11/14/23 15:20 ESR 20 mm/hr (0-10) H 11/14/23 15:20 D-Dimer 1.88 ug/mLFEU (0-0.59) H 11/14/23 15:20 Sodium 137 mmol/L (136-145) 11/14/23 15:20 Potassium 4.0 mmol/L (3.5-5.1) 11/14/23 15:20 Chloride 97 mmol/L (98-107) L 11/14/23 15:20 Carbon Dioxide 26 mmol/L (22-29) 11/14/23 15:20 Anion Gap 18.0 (5-19) 11/14/23 15:20 BUN 37 mg/dL (8-23) H 11/14/23 15:20 Creatinine 1.4 mg/dL (0.7-1.2) H 11/14/23 15:20 GFR Calculation Not Reportable 11/14/23 15:20 Glucose 160 mg/dL (65-115) H 11/14/23 15:20 Calculated Osmolality 296 mOsm/kg (285-295) H 11/14/23 15:20 Lactic Acid 0.9 mmol/L (0.5-2.2) 11/14/23 15:50 Calcium 8.3 mg/dL (8.5-10.5) L 11/14/23 15:20 Total Bilirubin 1.2 mg/dL (0.15-1.2) 11/14/23 15:20 AST 33 U/L (0-40) 11/14/23 15:20 ALT 28 U/L (0-41) 11/14/23 15:20 Alkaline Phosphatase 135 U/L (40-130) H 11/14/23 15:20 Troponin T Baseline 163 ng/L (0-15) H* 11/14/23 15:50 Troponin T 120 Minute 144.3 ng/L (0-15) H 11/14/23 17:39 Delta Troponin T -18.7 ABS# (0-10) L 11/14/23 17:39 C-Reactive Protein 274.4 mg/L (0.0-4.9) H 11/14/23 15:20 NT-Pro-B Natriuret Pep 5301 pg/mL (0-450) H 11/14/23 15:20 Total Protein 5.7 g/dL (6.6-8.7) L 11/14/23 15:20 Albumin 3.8 g/dL (3.5-5.2) 11/14/23 15:20 Globulin 1.9 g/dL (1.3-4.6) 11/14/23 15:20 Procalcitonin 3.45 ng/mL (0-0.5) H 11/14/23 15:20 TSH 3.14 uIU/mL (0.27-4.20) 11/14/23 15:20 Random Cortisol 11.11 ug/dL (2.47-19.5) 11/14/23 15:20 Adenovirus (PCR) Not detected (NOT DETECT) 11/14/23 15:51 C. pneumoniae DNA (PCR) Not detected (NOT DETECT) 11/14/23 15:51 Coronavirus 229E (PCR) Not detected (NOT DETECT) 11/14/23 15:51 Human Metapneumovir PCR Not detected (NOT DETECT) 11/14/23 15:51 Influenza A (H1) PCR Not detected (NOT DETECT) 11/14/23 15:51 Influ A (H1/09) PCR Not detected (NOT DETECT) 11/14/23 15:51 Influenza A (H3) PCR Not detected (NOT DETECT) 11/14/23 15:51 Influenza Type A (PCR) Not detected (NOT DETECT) 11/14/23 15:51 Influenza Type B (PCR) Not detected (NOT DETECT) 11/14/23 15:51 M. pneumoniae (PCR) Not detected (NOT DETECT) 11/14/23 15:51 Parainfluenza 1 (PCR) Not detected (NOT DETECT) 11/14/23 15:51 Parainfluenza 2 (PCR) Not detected (NOT DETECT) 03 15:51 Parainfluenza 3 (PCR) Not detected (NOT DETECT) 11/14/23 15:51 Parainfluenza 4 (PCR) Not detected (NOT DETECT) 11/14/23 15:51 RSV Type A (PCR) Not detected (NOT DETECT) 11/14/23 15:51 RSV Type B (PCR) Not detected (NOT DETECT) 11/14/23 15:51 Entero/Rhino (PCR) Not detected (NOT DETECT) 11/14/23 15:51 SARS-CoV-2 (PCR) Not detected (NOT DETECT) 11/14/23 15:51 All radiology interpretation(s) finalized by discharge Discharge Plan Discharge Patient Disposition: Admitted As Inpatient Admit Provider: Saqib Jerome Clinical Impression: Acute exacerbation of chronic obstructive airways disease, Congestive heart failure, Community acquired pneumonia Condition: Stable Coding Level of Care Code ED Director Of Industrial Relations for Tori Saldana
[2023-11-14 15:32] LABS: Basophils % 0.1 %; Hematocrit 30.7 % (37-53); Lymphocytes # 1.7 10^3/uL (0.8-4.8); Lymphocytes % 10.5 %; Mean Corpuscular HGB Conc 33.6 g/dL (30-55); Mean Corpuscular Hemoglobin 33.4 pg (27-33); Mean Corpuscular Volume 99.7 fl (82-101); Mean Platelet Volume 10.5 fL (7.4-10.4); Monocytes # 0.8 10^3/uL (0.2-0.9); Monocytes % 4.8 %; Neutrophils # 13.59 10^3/uL (1.8-7.7); Nucleated Red Blood Cells % 0 %; Platelet Count 129 10^3/cmm (157-399); Red Blood Count 3.08 10^6/uL (3.85-5.65); Red Cell Distribution Width 15.4 % (12.1-15.1); White Blood Count 16.19 10^3/uL (3.29-11.43)
--- NOTE | 2023-11-14 15:34 | PC.PHAR ---
[facility] IS [facility] 3:15PM 11/14/23
[2023-11-14 15:51] LABS: Alanine Aminotransferase 28 U/L (0-41); Albumin Level 3.8 g/dL (3.5-5.2); Alkaline Phosphatase 135 U/L (40-130); Blood Urea Nitrogen 37 mg/dL (8-23); Calcium 8.3 mg/dL (8.5-10.5); Carbon Dioxide 26 mmol/L (22-29); Chloride 97 mmol/L (98-107); Creatinine Clr Calc Pharmacy 36.6257; Globulin 1.9 g/dL (1.3-4.6); Glucose 160 mg/dL (65-115); Osmolality Calculated 296 mOsm/kg (285-295); Sodium 137 mmol/L (136-145); Total Bilirubin 1.2 mg/dL (0.15-1.2); Total Protein 5.7 g/dL (6.6-8.7)
[2023-11-14] MEDS: dexamethasone 10 mg/mL INJ IVP (15:51)
[2023-11-14 15:54] LABS: Aspartate Amino Transferase 33 U/L (0-40)
[2023-11-14] MEDS: ipratropium-albuterol 3 mL Neb INHALATION ×3 (15:58→20:47)
[2023-11-14 16:54] LABS: NT Pro B Type Natriuretic Pept 5301 pg/mL (0-450)
--- NOTE | 2023-11-14 17:08 | ECG_ITS ---
[facility] Test Date: 2023-11-14 Pat Name: Glenn Kong Department: Room: Gender: Male [employer] Operator: : 1940 Requested By: Luis Daniel Benson Order Number: [id number] Tiki MD: Danielito Nava M.D. Measurements Intervals [place] Rate: 86 P: 61 ND: 169 QRS: -29 QRSD: 99 T: 49 QT: 386 QTc: 463 Interpretive Statements SINUS RHYTHM BORDERLINE LEFT AXIS DEVIATION [QRS AXIS < -20] VOLTAGE CRITERIA FOR LVH [MEETS CRITERIA IN ONE OF: R(aVL), S(V1), R(V5), R(V5/V6)+S(V1)] Compared to ECG 10/27/2023 09:24:38 Incomplete right bundle-branch block no longer present Myocardial infarct finding no longer present Electronically Signed On 11-14-2023 22:00:43 CDT by Danielito Nava M.D. [id number]
[2023-11-14] MEDS: levofloxacin-dextrose 5 % 500 MG/100 ML PREMIX 100 MG IV (17:12)
--- NOTE | 2023-11-14 17:12 | XRR_ITS ---
PROCEDURE INFORMATION: Exam: XR Left Knee Exam date and time: 11/14/2023 5:13 PM Age: 83 years old Clinical indication: Pain; Knee; Left TECHNIQUE: Imaging protocol: Radiologic exam of the left knee. Views: 3 views. COMPARISON: DX XR knee LT 3V* [id number] 10/24/2020 1:34 PM FINDINGS: Bones/joints: Osseous structures are intact. Negative for fracture. 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 Soft tissues: Normal. XR/XR knee LT 3V* [id number] IMPRESSION: No acute findings. 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
[2023-11-14 17:18] LABS: Troponin(5th) Baseline 163 ng/L (0-15)
[2023-11-14] MEDS: FUROsemide 10 mg/mL SDV 4mL 40 MG IVP (17:51)
[2023-11-14 17:56] LABS: Adenovirus Not Detected (NOT DETECT); Chlamydia Pneumoniae Not Detected (NOT DETECT); Coronavirus 229E,HKU1,NL63,OC4 Not Detected (NOT DETECT); Human Metapneumovirus Not Detected (NOT DETECT); Human Rhinovirus/Enterovirus Not Detected (NOT DETECT); Influenza A Not Detected (NOT DETECT); Influenza A H1 Not Detected (NOT DETECT); Influenza A H1-2009 Not Detected (NOT DETECT); Influenza A H3 Not Detected (NOT DETECT); Influenza B Not Detected (NOT DETECT); Mycoplasma Pneumoniae Not Detected (NOT DETECT); Parainfluenza Virus Type 1 Not Detected (NOT DETECT); Parainfluenza Virus Type 2 Not Detected (NOT DETECT); Parainfluenza Virus Type 3 Not Detected (NOT DETECT); Parainfluenza Virus Type 4 Not Detected (NOT DETECT); Respiratory Syncytial Virus A Not Detected (NOT DETECT); Respiratory Syncytial Virus B Not Detected (NOT DETECT); SARS-COV-2 Not Detected (NOT DETECT)
--- NOTE | 2023-11-14 18:08 | CTR_ITS ---
PROCEDURE INFORMATION: Exam: CTA Chest With Contrast Exam date and time: 11/14/2023 6:47 PM Age: 83 years old Clinical indication: Pain and abnormal findings; Abnormal diagnostic tests; Elevated d-dimer; Shortness of breath; Chest pressure; Prior surgery; Surgery date: 6+ months; Surgery type: Gb; Patient HX: Cp with SOB. Dimer 1.88; Additional info: SOB, chest pain TECHNIQUE: Imaging protocol: Computed tomographic angiography of the chest with contrast. Exam focused on the arteries. 3D rendering (Not supervised by radiologist): MIP and/or 3D reconstructed images were created by the technologist. Radiation optimization: All CT scans at this facility use at least one of these dose optimization techniques: automated exposure control; mA and/or kV adjustment per patient size (includes targeted exams where dose is matched to clinical indication); or iterative reconstruction. Contrast material: OMNI 350; Contrast volume: 98 ml; Contrast route: INTRAVENOUS (IV); COMPARISON: CR XR chest 1V portable [id number] 11/14/2023 3:26 PM RADIATION DOSE METRICS: Total DLP (mGy-cm): 412.26 FINDINGS: Pulmonary arteries: Dilated pulmonary arterial trunk up to 3.5 cm. No pulmonary emboli. Aorta: Unremarkable. No aortic aneurysm. No aortic dissection. Lungs: Bibasilar consolidations, right greater than left. Several small focal opacities noted in the left upper lobe. Right apical scarring. Pleural spaces: Unremarkable. No pneumothorax. No pleural effusion. Heart: Cardiomegaly. Trace pericardial effusion. Lymph nodes: Unremarkable. No enlarged lymph nodes. Bones/joints: Unremarkable. No acute fracture. Soft tissues: Unremarkable. CT/CT angio chest PE protcl [id number] IMPRESSION: 1. Multifocal pneumonia. 2. Dilated pulmonary arterial trunk suggestive of pulmonary hypertension in the appropriate clinical context.
--- NOTE | 2023-11-14 18:09 | P.HP_ITS ---
Providers/Chief Complaint 2 Admitting Physician: Saqib Jerome MD Primary Care Provider: Regina Morales MD Chief Complaint: [facility], fever, sob History of Present Illness Glenn Kong is a 83 year old male with a past medical history rheumatoid arthritis, on chronic prednisone, history of CKD stage II, history of COPD, hyperlipidemia, hypertension, neuropathy, history of CHF, history of CAD recently had a coronary angiogram showing mild pulmonary hypertension, 50% narrowing first diagonal branch of the LAD,, 30 to 40% ostial eccentric left main disease who presents to [facility] due to shortness of breath, wheezing, fevers, fatigue, malaise, left knee pain after a fall. Patient tells me that he fell accidentally a few weeks ago, and had severe left knee pain, he has been managing the pain with his home medications, he also reports increased shortness of breath, increased productive cough, shortness of breath with exertion he also reports chest pain substernal, nonradiating, no lightheadedness, no dizziness, no sick contacts, he did present to the emergency room in October for his fall, and then thereafter for a COPD exacerbation, he tells me he continues to feel short of breath have shortness of breath with exertion now progressing to rest, workup in the emergency room shows leukocytosis, elevated BNP, elevated troponin, has been given 1 dose of IV Levaquin, Decadron, Lasix, hospitalist team has been called for admission, Review of Systems 2 Const: Reports: fever(s), fatigue and malaise; Denies: chills Card: Reports: chest pain Resp: Reports: dyspnea GI: Denies: abdominal pain : Denies: flank pain Neuro: Reports: dizziness; Denies: headache(s) Endo: Denies: polyuria Medications/Allergies Home Medications Medication Instructions Recorded Confirmed Last Taken Type albuterol sulfate 90 mcg/actuation 2 puff inhalation QID PRN 12/07/19 11/14/23 Unknown History aerosol inhaler Shortness Of Breath ascorbic acid (vitamin C) 500 mg 500 mg PO DAILY 12/07/19 11/14/23 09/18/23 07:00 History tablet cholecalciferol (vitamin D3) 50 2,000 unit PO DAILY 12/07/19 11/14/23 09/18/23 07:00 History mcg (2,000 unit) tablet vitamin B complex 1 tab PO QAM 12/07/19 11/14/23 Unknown History montelukast 10 mg tablet 10 mg PO QPM 03/22/21 11/14/23 09/18/23 History loratadine 10 mg tablet 10 mg PO DAILY 02/08/22 11/14/23 09/18/23 History folic acid 400 mcg tablet 400 mcg PO DAILY 02/10/23 11/14/23 09/18/23 History vit C 250 mg-vit E 90 mg-zinc 40 1 tab PO BID 02/10/23 11/14/23 Unknown History mg-copper 1 [id number] capsule (PreserVision AREDS-2) isosorbide mononitrate 30 mg 30 mg PO DAILY #30 tabs 07/15/23 11/14/23 09/18/23 Rx tablet,extended release 24 hr omeprazole 40 mg capsule,delayed 40 mg PO QAM #90 caps 08/20/23 11/14/23 09/18/23 Rx release prednisone 5 mg tablet 5 mg PO DAILY #90 tabs 08/20/23 11/14/23 09/18/23 Rx sulfasalazine 500 mg tablet 500 mg PO BID #180 tabs 08/20/23 11/14/23 09/18/23 Rx Nutrition Supl Ensure Plus See Rx Instructions .Route .COMPLEX 10/27/23 11/14/23 Unknown History abatacept 125 mg/mL subcutaneous 125 mg SUBCUT Q7D 10/27/23 11/14/23 Unknown History auto-injector (Orencia ClickJect) amlodipine 2.5 mg tablet 2.5 mg PO DAILY 10/27/23 11/14/23 Unknown History aripiprazole 20 mg tablet 10 mg PO DAILY 10/27/23 11/14/23 Unknown History artificial saliva (yerba cha and 3 - 5 spray mucous membrane .EVERY 10/27/23 11/14/23 Unknown History lytes) spray 2 HOURS PRN Dry Mouth bisacodyl 5 mg tablet,delayed 20 mg PO DAILY PRN Constipation 10/27/23 11/14/23 Unknown History release brimonidine 0.2 % eye drops 1 drp ophthalmic (eye) BID 10/27/23 11/14/23 Unknown History doxepin 10 mg capsule 10 mg PO BEDTIME 10/27/23 11/14/23 Unknown History doxycycline hyclate 100 mg tablet 100 mg PO BID 10/27/23 11/14/23 Unknown History erythromycin 5 mg/gram (0.5 %) eye See Rx Instructions .Route .COMPLEX 10/27/23 11/14/23 Unknown History ointment (3.5 gram tube) ferrous sulfate 325 mg (65 mg 325 mg PO TID PRN iron deficiency 10/27/23 11/14/23 Unknown History iron) tablet fluticasone propionate 50 1 spray intranasal DAILY 10/27/23 11/14/23 Unknown History mcg/actuation nasal spray,suspension ipratropium 0.5 mg-albuterol 3 mg 3 ml inhalation Q4H PRN shortness 10/27/23 11/14/23 Unknown Rx (2.5 mg base)/3 mL nebulization of breath or wheezing #90 mL soln lidocaine 5 % topical patch See Rx Instructions .Route .COMPLEX 10/27/23 11/14/23 Unknown History lisinopril 10 mg tablet 5 mg PO BEDTIME 10/27/23 11/14/23 Unknown History meloxicam 7.5 mg tablet 7.5 mg PO DAILY 10/27/23 11/14/23 Unknown History mupirocin 2 % topical ointment 1 applic topical BID 10/27/23 11/14/23 Unknown History neomycin-polymyxin B-dexameth eye See Rx Instructions .Route .COMPLEX 10/27/23 11/14/23 Unknown History ointment polyethylene glycol 3350 17 gram 17 g PO DAILY 10/27/23 11/14/23 Unknown History oral powder packet (Miralax) polyvinyl alcohol 1.4 % eye drops 2 drp ophthalmic (eye) QID PRN Dry 10/27/23 11/14/23 Unknown History (Artificial Tears (polyvinyl Eye(S) alcohol)) sertraline 100 mg tablet (Zoloft) 200 mg PO QAM 10/27/23 11/14/23 Unknown History travoprost 0.004 % eye drops 1 drp ophthalmic (eye) QPM 10/27/23 11/14/23 Unknown History trazodone 100 mg tablet 100 mg PO BEDTIME 10/27/23 11/14/23 Unknown History vitamin A acetate 3,000 mcg 3,000 mcg PO DAILY 10/27/23 11/14/23 Unknown History (10,000 unit) sublingual tablet vitamin E acetate 100 unit capsule 100 unit PO DAILY 10/27/23 11/14/23 Unknown History tramadol 50 mg tablet 50 mg PO BID PRN pain #45 tabs 11/06/23 11/14/23 Unknown Rx clotrimazole 10 mg nikos 20 mg mucous membrane 5XD 11/14/23 11/14/23 Unknown History Allergies Allergy/AdvReac Type Severity Reaction Status Date / Time mirtazapine Allergy allergy on Verified 11/14/23 15:06 [facility] quetiapine Allergy allergy on Verified 11/14/23 15:06 [facility] PFSH Acute 2 PFSH: Medical History Ambulates with cane Bipolar 1 disorder Carcinoma in situ of prostate Fine motor impairment Cardiac murmur MDD (major depressive disorder) Legal blindness Intervertebral disc degeneration PTSD (post-traumatic stress disorder) History of prostate cancer History of scarlet fever Neuropathy Chronic kidney disease (CKD) Stage 2 Hypertension Hyperlipidemia 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 Mother Lung disease Social History Smoking and tobacco/nicotine status: former use of tobacco/nicotine Quit status (tobacco/nicotine): has quit using Year quit tobacco: 1970 - 3 PPD x 25 Years Former quit date comment: smoked 40+ years Alcohol intake: former Year of sobriety/quit date alcohol: 1989 Substance/Drug Use: never Caregiver/support person: Yes Lives independently: Yes Household members: caregiver Current occupational status: retired and disabled Do you think of yourself as: Straight/Heterosexual Current gender identity: Male Vitals/I&O/Wt Last Vital Signs Temp 98.0 F 11/14/23 15:01 Pulse 82 11/14/23 17:43 Resp 18 11/14/23 17:43 BP 104/53 11/14/23 17:43 Pulse Ox 97 11/14/23 17:43 O2 Del Method Nasal Cannula 11/14/23 17:43 O2 Flow Rate 2 11/14/23 17:43 Weight last 48 hrs Weight 66.224 kg Physical Exam 2 Const: COMMON NORMALS: no acute distress and patient oriented x3 HENMT: COMMON NORMALS: normocephalic HEAD & SCALP: normocephalic Eye: COMMON NORMALS: Equal, round and reactive pupils present Neck/C-Spine: COMMON NORMALS: no JVD Lymph: LYMPHATIC: no lymphadenopathy noted Resp: COMMON NORMALS: normal respiratory effort, No retractions, No use of accessory muscles and clear to auscultation bilaterally AUSCULTATION: c rackles and wheezes Cardio: COMMON NORMALS: no JVD, regular rate, regular rhythm, S1 normal heart sound present and S2 normal heart sound present RATE: regular rate RHYTHM: regular rhythm HEART SOUNDS: S1 normal heart sound present and S2 normal heart sound present GI: COMMON NORMALS: Normal to inspection, nondistended, normoactive bowel sounds present, Soft to palpation and non-tender Extremity: COMMON NORMALS: no pedal edema NARRATIVE EXTREMITY EXAM: Bilateral calf tenderness OTHER: Left knee examination, slightly erythematous, swollen, tender Neuro: COMMON NORMALS: patient oriented x3, CN's II-XII intact bilaterally and moves all extremities Psych: COMMON NORMALS: mental status grossly normal Data 11/14/23 15:20 11/14/23 15:20 Micro: Microbiology 11/14/23 15:42 Blood Culture - Preliminary Blood SPECIMEN COLLECTED 11/14/23 15:42 Blood Culture - Preliminary Blood SPECIMEN COLLECTED A&P Assessment and plan (1) Acute hypoxic respiratory failure: (2) NSTEMI (non-ST elevated myocardial infarction): (3) Chest pain: Qualifiers: Chest pain type: precordial pain Qualified Code(s): R07.2 - Precordial pain (4) Chronic kidney disease (CKD): (5) Pneumonia: (6) CHF exacerbation: (7) Aortic valve stenosis: Qualifiers: Cardiac valve disease etiology: nonrheumatic Qualified Code(s): I35.0 - Nonrheumatic aortic (valve) stenosis (8) Hypertension: Qualifiers: Hypertension type: primary hypertension Qualified Code(s): I10 - Essential (primary) hypertension Plan Acute hypoxic respiratory failure ? Secondary to pneumonia, ? Secondary to COPD, ? Secondary to CHF ? Plan to ? Obtain a ABG, ? Given elevated D-dimer, elevated troponins, recent fall, will order CT angiogram of the chest, venous ultrasound for DVT ? Has received 40 mg IV Lasix in emergency room, follow creatinine, further Lasix dosing based on clinical progress -DuoNeb, budesonide, ? Solu-Medrol 40 mg IV every 8 hours ? Rocephin, azithromycin, ? Heparin drip ? Sputum culture, blood cultures ? Full code ? Per drip for DVT prophylaxis, NSTEMI, chest pain troponin 163, EKG no acute ST-T wave changes Cardiac cath 09/2023 Conclusions 1. This is a 83-year-old white male with a multiple risk factors for coronary disease, presenting with chest pain. Abnormal Myocardial perfusion imaging. At least moderate aortic valve stenosis by echocardiogram. Cardiac catheterization revealed the following. 2. 30 to 40% ostial eccentric left main disease. 50 to 60% ostial narrowing in the first diagonal branch of the left anterior descending artery. Minimal disease in the other vessels. Moderate calcification in the left main. The right heart catheterization revealed features of mild pulmonary hypertension - the pulmonary artery pressure of 42/80 with a mean of 28. RV pressure 45/9. Right atrial pressure was 14. Pulmonary capillary wedge pressure was 20. Cardiac output of 6.0 with an index of 3.0. Aortic valve area was calculated to be 1.7 cm2. Aortic valve index of 0.96. LVEDP was [address] Bañuelos about the FFR of the left main lesion. Since there was no dampening of pressure with the catheter engagement, it was decided not to do an FFR at this time. Plan -Serial EKGs, serial troponins, telemetry monitoring -Heparin drip -Cardiac echo -Monitor for chest pain Attestations 2 Medical Necessity Statement*: Patient requires hospitalization, inpatient, greater than 2 midnights, for acute hypoxic respiratory failure secondary to pneumonia, COPD, CHF, NSTEMI, chest pain Diagnoses Acute hypoxic respiratory failure J96.01 NSTEMI (non-ST elevated myocardial infarction) I21.4 Precordial pain R07.2 Chest pain type: precordial pain Chronic kidney disease (CKD) N18.9 Pneumonia J18.9 CHF exacerbation I50.9 Nonrheumatic aortic valve stenosis I35.0 Cardiac valve disease etiology: nonrheumatic Primary hypertension I10 Hypertension type: primary hypertension
[2023-11-14 18:11] LABS: ABG PCO2 41.4 mmHg (35-45); ABG PH Result 7.43 (7.35-7.45); Alveolar-Arterial Oxygen Gradi 9.7 mmHg (5-10); Arterial Blood Gas Hematocrit 27.7 % (42-52); Base Excess ABG 2.6 mmol/L (-2.0-2.0); Blood Gas Allen Test Pos; Blood Gas LPM 2.5 %; Blood Gas Operator Identificat glc; Blood Gas Sample Site Radial, left; Blood Gas Sample Type Arterial; Carboxyhemoglobin 1.3 %THgb (0.4-20.1); HCO3 ABG 27.2 mmol/L (22-26); Ionized Calcium Level - ABG 1.1 mmol/L (1.1-1.4); Methemoglobin 0.9 % (0.4-1.5); Oxygen Device NC; Oxygen Saturation ABG 97.2; PO2 ABG 87.8 mmHg (80.0-100.0); PO2 FiO2 Ratio Arterial Blood 0; Potassium Level - ABG 3.4 mmol/L (3.5-5.0)
[2023-11-14 18:12] LABS: D Dimer 1.88 ug/mLFEU (0-0.59)
[2023-11-14 18:20] LABS: C Reactive Protein 274.4 mg/L (0.0-4.9)
--- NOTE | 2023-11-14 18:23 | PC.NURSE ---
report attempted, nurse unavailable
[2023-11-14 18:27] LABS: Troponin 5 2HR Delta -18.7 ABS# (0-10)
[2023-11-14 18:27] LABS: Procalcitonin 3.45 ng/mL (0-0.5)
[2023-11-14 18:28] LABS: Troponin 5 2HR 144.3 ng/L (0-15)
--- NOTE | 2023-11-14 18:38 | PC.NURSE ---
attempted to call report, nurse unavailable
[2023-11-14 18:40] LABS: Erythrocyte Sedimentation Rate 20 mm/hr (0-10)
[2023-11-14] MEDS: iohexol 350 mg/mL 500 mL Btl (per mL) IV (18:41)
[2023-11-14 18:47] LABS: Add Urine Microscopic? YES; Amorphous Sediment Urine 1+ /hpf; Bacteria Urine 2+ /hpf; Bilirubin Urine Neg (Negative); Blood Urine 2+ (Negative); Coarse Granular Casts Urine 0-4 /lpf; Fine Granular Casts Urine 0-4 /lpf; Glucose Urine UA Norm (Normal); Ketones Urine Negative (Negative); Leukocyte Esterase Urine 2+ (Negative); Mucus Urine 1+ /hpf; Nitrate Urine Negative (Negative); Protein Urine 1+ (Negative); Squamous Epithelial Cell Urine 0-4 /hpf (0-5); Urine Appearance Turbid (CLEAR); Urine Color Orange (Yellow); Urobilinogen Urine 1 mg/dL (Negative); WBC Urine 15-25 /hpf (0-5); pH Urine 5 (5-7)
[2023-11-14 18:48] LABS: Lactic Sepsis W/Reflex 0.9 mmol/L (0.5-2.2)
[2023-11-14 18:48] LABS: Add Urine Culture? Yes
[2023-11-14 18:58] LABS: Thyroid Stimulating Hormone 3.14 uIU/mL (0.27-4.20)
[2023-11-14 20:35] LABS: Cortisol Random 11.11 ug/dL (2.47-19.5)
[2023-11-14] MEDS: budesonide 0.5 mg/2 mL Neb INHALATION (20:47)
[2023-11-14] MEDS: trazodone 100 mg Tablet PO (21:13)
[2023-11-14] MEDS: doxepin 10 mg Capsule PO (21:13)
[2023-11-14] MEDS: pantoprazole 40 mg SDV IVP (21:14)
[2023-11-14] MEDS: heparin 5,000 unit/mL INJ 1 mL IV (21:17)
[2023-11-14] MEDS: heparin drip 25,000 UNIT/500 ML PREMIX 18 UNIT IV (21:24)
[2023-11-14 23:20] LABS: Troponin 5 6HR 129.4 ng/L (0-15); Troponin 5 6HR Delta -33.6 ng/L (0-12)
[2023-11-15] VITALS (17 sets, daily range): BP systolic 92–117; BP diastolic 50–64; PULSE 69–86; RESP 18–25; TEMP 36.3–37.2; O2SAT 94–98
[2023-11-15 03:59] LABS: Basophils % 0.1 %; Lymphocytes % 9.1 %; Mean Corpuscular Hemoglobin 32.7 pg (27-33); Mean Corpuscular Volume 99.3 fl (82-101); Mean Platelet Volume 10.7 fL (7.4-10.4); Monocytes # 0.3 10^3/uL (0.2-0.9); Monocytes % 2.4 %; Neutrophils # 9.36 10^3/uL (1.8-7.7); Nucleated Red Blood Cells % 0 %; Platelet Count 120 10^3/cmm (157-399); Red Blood Count 2.72 10^6/uL (3.85-5.65); Red Cell Distribution Width 14.6 % (12.1-15.1); White Blood Count 10.63 10^3/uL (3.29-11.43)
[2023-11-15 04:15] LABS: Partial Thromboplastin Time 60.9 SECONDS (23.9-36.7)
[2023-11-15] MEDS: ipratropium-albuterol 3 mL Neb INHALATION ×4 (04:18→15:06)
[2023-11-15 04:34] LABS: Estmated Average Glucose 88; Hemoglobin A1C 4.7 % (4.0-6.0)
[2023-11-15 04:46] LABS: Alanine Aminotransferase 25 U/L (0-41); Albumin Level 3.5 g/dL (3.5-5.2); Alkaline Phosphatase 128 U/L (40-130); Anion Gap 16.6 (5-19); Aspartate Amino Transferase 23 U/L (0-40); Blood Urea Nitrogen 37 mg/dL (8-23); Calcium 8.2 mg/dL (8.5-10.5); Carbon Dioxide 25 mmol/L (22-29); Chloride 97 mmol/L (98-107); Creatinine Clr Calc Pharmacy 36.9439; Globulin 2.2 g/dL (1.3-4.6); Glucose 149 mg/dL (65-115); Magnesium 2.2 mg/dL (1.7-2.3); Osmolality Calculated 291 mOsm/kg (285-295); Phosphorus 3.3 mg/dL (2.5-4.5); Potassium 3.6 mmol/L (3.5-5.1); Sodium 135 mmol/L (136-145); Total Bilirubin 0.9 mg/dL (0.15-1.2); Total Protein 5.7 g/dL (6.6-8.7)
[2023-11-15 04:51] LABS: Chol HDL Ratio 2.33 mg/dL (1.0-5.00); Cholesterol 133 mg/dL (0-200); HDL Cholesterol 57 mg/dL (60-100); LDL Cholesterol Calculated 66 mg/dL (50-129); LDL HDL Ratio 1.16 RATIO (0.00-3.22); NT Pro B Type Natriuretic Pept 3945 pg/mL (0-450); Triglycerides 49 mg/dL (0-150)
[2023-11-15] MEDS: acetaminophen 325 mg Tablet 650 MG PO ×2 (05:02→17:23)
[2023-11-15] MEDS: sertraline 100 mg Tablet 200 MG PO (05:02)
[2023-11-15] MEDS: methylPREDNISolone sod succ 40 mg/mL INJ IVP ×3 (05:03→21:02)
--- NOTE | 2023-11-15 06:00 | USR_ITS ---
PROCEDURE INFORMATION: Exam: US Duplex Lower Extremity Veins, Bilateral Exam date and time: 11/15/2023 8:44 AM Age: 83 years old Clinical indication: Edema, localized; Lower extremity, bilateral; Additional info: Leg swelling TECHNIQUE: Imaging protocol: Real-time duplex ultrasound of the bilateral extremities with 2-D gonzalez scale, color Doppler flow and spectral waveform analysis including responses to compression and other maneuvers (when performed) with image documentation. Complete exam focused on the lower extremity veins. COMPARISON: US scrotum [id number] 07/04/2020 10:43 PM FINDINGS: Right deep veins: Unremarkable. The common femoral, femoral, proximal profunda femoral and popliteal veins are patent without thrombus. Normal Doppler waveforms. Normal compressibility and/or augmentation response. Left deep veins: Unremarkable. The common femoral, femoral, proximal profunda femoral and popliteal veins are patent without thrombus. Normal Doppler waveforms. Normal compressibility and/or augmentation response. Superficial veins: Greater saphenous veins at the saphenofemoral junctions are patent bilaterally without thrombus. Soft tissues: Unremarkable. US/CV venous duplex [facility] [id number] IMPRESSION: No evidence of deep vein thrombosis.
--- NOTE | 2023-11-15 06:00 | USCV_ITS ---
Dilan Glenn Age: 83 Gender: M : 1940 Exam Date: 11/15/2023 08:20 Ordering Phys: Saqib Jerome MD Technologist: Edwin Becerra Exam Location: [facility] – [place], [place] Indication: nstemi BP: 105 / 64 HR: 90 Rhythm: Sinus Technical Quality: Adequate MEASUREMENTS (Male / Female) Normal Values 2D ECHO LVOT Diameter 2.0 cm LV Ejection Fraction MOD 2C 59.6 % LV Ejection Fraction 2C AL 60.2 % LA Diameter 3.5 cm RA Systolic Volume 4C AL 26.4 ml RA Systolic Volume 4C MOD 26.6 ml Aorta at Sinotubular Diameter 2.9 cm IVC Diameter 1.8 cm M-MODE LA Ao Ratio MM 1.4 AV Cusp Separation MM 0.9 cm DOPPLER AV Peak Velocity 384.7 cm/s LVOT Peak Velocity 132.0 cm/s AV Area Cont Eq vti 1.1 cm squared AV Area Cont Eq pk 1.1 cm squared MV Peak Velocity 128.0 cm/s MV Area PHT 3.3 cm squared Mitral E to A Ratio 0.8 TV Peak Velocity 314.5 cm/s TR Peak Velocity 331.0 cm/s TR Peak Gradient 43.8 mmHg TR Mean Velocity 235.0 cm/s TR Mean Gradient 23.2 mmHg TR Velocity Time Integral 95.5 cm PV Peak Velocity 112.0 cm/s FINDINGS Left Ventricle Normal left ventricular size and systolic function, EF 60%.moderate left ventricular hypertrophy. No regional wall motion abnormalities.Grade II/IV diastolic dysfunction, moderately elevated filling pressures. Right Ventricle Normal right ventricular size and systolic function. Right Atrium Normal right atrial size. Left Atrium Moderate to severely increased left atrial volume index-41 mL/m squared Mitral Valve Mild mitral annular calcification. Mild mitral valve regurgitation. Aortic Valve Moderate aortic valve stenosis, mean gradient 33.1 mmHg, STACY 1.1 cm squared. The peak velocity across the aortic valve was 3.85 m/s. [id number] aortic valve regurgitation. Tricuspid Valve Trace tricuspid valve regurgitation. Pulmonic Valve Pulmonic valve not well visualized. Pericardium No pericardial effusion. Aorta Normal aortic annulus size. IVC Inferior vena cava not visualized. CONCLUSIONS Normal left ventricular size and systolic function, EF 60%.moderate left ventricular hypertrophy. No regional wall motion abnormalities.Grade II/IV diastolic dysfunction, moderately elevated filling pressures. Moderate to severely increased left atrial volume index-41 mL/m squared. Mild mitral annular calcification. Mild mitral valve regurgitation. Moderate aortic valve stenosis, mean gradient 33.1 mmHg, STACY 1.1 cm squared. The peak velocity across the aortic valve was 3.85 m/s. [id number] aortic valve regurgitation. Trace tricuspid valve regurgitation. There is no pericardial effusion. There are no intracardiac masses. Compared to the study from 02/19/2023, there may not be a significant change. Dr Nikki Finn MD [facility] (Electronically Signed) Final Date: 15 November 2023 11:56 S
[2023-11-15] MEDS: cefTRIAXone 1,000 MG in sodium chloride 0.9% (plus) 50 ML 100 MG IV (06:22)
[2023-11-15] MEDS: azithromycin 500 MG in sodium chloride 0.9% 250 ML 250 MG IV (06:45)
[2023-11-15] MEDS: budesonide 0.5 mg/2 mL Neb INHALATION (07:31)
--- NOTE | 2023-11-15 08:33 | US_ITS ---
WS: [id number] RENAL ULTRASOUND HISTORY: yessica COMPARISON: None available. TECHNIQUE: 2-D and color Doppler imaging of the kidney submitted. Right kidney: 9.5 cm x 5.2 cm x 5.8 cm. Cortex: 1.4 cm Normal echogenicity with no hydronephrosis or mass. Left kidney: 10.4 cm x 3.9 cm x 4.8 cm. Cortex: 1.3 cm Normal echogenicity with no hydronephrosis or mass. Aorta: Normal. Urinary Bladder: Normal distention. IMPRESSION: Normal renal ultrasound.
[2023-11-15] MEDS: ARIPiprazole 10 mg Tablet PO (09:41)
[2023-11-15] MEDS: predniSONE 5 mg Tablet PO (09:41)
[2023-11-15] MEDS: isosorbide mononitrate ER 30 mg Tablet PO (09:41)
[2023-11-15] MEDS: folic acid 1 mg Tablet PO (09:42)
[2023-11-15] MEDS: polyethylene glycol 3350 Pkt 17 gm PO (09:42)
[2023-11-15 10:16] LABS: Partial Thromboplastin Time 46.6 SECONDS (23.9-36.7)
[2023-11-15] MEDS: heparin 5,000 unit/mL INJ 1 mL IV ×2 (10:35→17:24)
--- NOTE | 2023-11-15 14:00 | PC.NURSE ---
transfer pt transferred out of bed to go to bedside commode. x2 falls recently noted. pt is a full assist in lifting him up due to his osteoarthritis and buckling up with his knees and legs, with contraction on his hands. pt voided in the commode and assisted to sit in the chair.
--- NOTE | 2023-11-15 15:09 | P.PN_ITS ---
Subjective 2 Subjective: Patient was seen this morning, I discussed with him his CT angiogram findings, he has multifocal pneumonia, and STEMI, will have to monitor his heart closely, continue IV antibiotics monitor his clinical status, he does report feeling weak continues to have productive cough, no fevers overnight Vitals/I&O/Wt Last Vital Signs Temp 98.2 F 11/15/23 07:56 Pulse 80 11/15/23 12:53 Resp 23 H 11/15/23 12:53 BP 107/54 11/15/23 12:53 Pulse Ox 95 11/15/23 12:53 O2 Del Method Nasal Cannula 11/15/23 12:53 O2 Flow Rate 2 11/15/23 12:53 11/15/23 11/15/23 11/15/23 06:59 14:59 22:59 Intake Total 170 / 270 1065.8 / 1065.8 Output Total 375 / 875 150 / 150 Balance -205 / -605 915.8 / 915.8 Weight last 48 hrs Weight 68.549 kg Weight 67.631 kg Weight 66.224 kg Physical Exam 2 Const: COMMON NORMALS: no acute distress and patient oriented x3 Resp: COMMON NORMALS: normal respiratory effort, No retractions and No use of accessory muscles AUSCULTATION: crackles and wheezes Cardio: COMMON NORMALS: regular rate, regular rhythm, S1 normal heart sound present and S2 normal heart sound present RATE: regular rate RHYTHM: r egular rhythm HEART SOUNDS: S1 normal heart sound present and S2 normal heart sound present GI: COMMON NORMALS: Normal to inspection, nondistended, normoactive bowel sounds present, Soft to palpation and non-tender PALPATION: Yes Soft to palpation Extremity: COMMON NORMALS: no pedal edema Neuro: COMMON NORMALS: patient oriented x3 Psych: COMMON NORMALS: mental status grossly normal Data 11/15/23 03:07 11/15/23 03:07 Micro: Microbiology 11/14/23 15:42 Blood Culture - Preliminary Blood SPECIMEN COLLECTED 11/14/23 15:42 Blood Culture - Preliminary Blood SPECIMEN COLLECTED A&P Assessment and plan (1) Acute hypoxic respiratory failure: (2) NSTEMI (non-ST elevated myocardial infarction): (3) Chest pain: Qualifiers: Chest pain type: precordial pain Qualified Code(s): R07.2 - Precordial pain (4) Chronic kidney disease (CKD): (5) Pneumonia: (6) CHF exacerbation: (7) Aortic valve stenosis: Qualifiers: Cardiac valve disease etiology: nonrheumatic Qualified Code(s): I35.0 - Nonrheumatic aortic (valve) stenosis (8) Hypertension: Qualifiers: Hypertension type: primary hypertension Qualified Code(s): I10 - Essential (primary) hypertension Plan Acute hypoxic respiratory failure -CT angiogram of the chest - CT/CT angio chest PE protcl [id number] IMPRESSION: 1. Multifocal pneumonia. 2. Dilated pulmonary arterial trunk suggestive of pulmonary hypertension in the appropriate clinical context. ? Secondary to pneumonia, ? Secondary to COPD, ? Secondary to CHF ? Plan to ? Daily dose Lasix based on clinical progress -DuoNeb, budesonide, ? Solu-Medrol 40 mg IV every 8 hours ? Rocephin, azithromycin, ? Heparin drip, for NSTEMI, for 48 hours ? Sputum culture, blood cultures ? Full code ? Per drip for DVT prophylaxis, NSTEMI, chest pain troponin 163, EKG no acute ST-T wave changes Cardiac cath 09/2023 Conclusions 1. This is a 83-year-old white male with a multiple risk factors for coronary disease, presenting with chest pain. Abnormal Myocardial perfusion imaging. At least moderate aortic valve stenosis by echocardiogram. Cardiac catheterization revealed the following. 2. 30 to 40% ostial eccentric left main disease. 50 to 60% ostial narrowing in the first diagonal branch of the left anterior descending artery. Minimal disease in the other vessels. Moderate calcification in the left main. The right heart catheterization revealed features of mild pulmonary hypertension - the pulmonary artery pressure of 42/80 with a mean of 28. RV pressure 45/9. Right atrial pressure was 14. Pulmonary capillary wedge pressure was 20. Cardiac output of 6.0 with an index of 3.0. Aortic valve area was calculated to be 1.7 cm2. Aortic valve index of 0.96. LVEDP was [address] Bañuelos about the FFR of the left main lesion. Since there was no dampening of pressure with the catheter engagement, it was decided not to do an FFR at this time. Plan -Serial EKGs, serial troponins, telemetry monitoring -Heparin drip -Cardiac echo CONCLUSIONS Normal left ventricular size and systolic function, EF 60%.moderate left ventricular hypertrophy. No regional wall motion abnormalities.Grade II/IV diastolic dysfunction, moderately elevated filling pressures. Moderate to severely increased left atrial volume index-41 mL/m squared. Mild mitral annular calcification. Mild mitral valve regurgitation. Moderate aortic valve stenosis, mean gradient 33.1 mmHg, STACY 1.1 cm squared. The peak velocity across the aortic valve was 3.85 m/s. [id number] aortic valve regurgitation. Trace tricuspid valve regurgitation. There is no pericardial effusion. There are no intracardiac masses. Compared to the study from 02/19/2023, there may not be a significant change. -Monitor for chest pain Plan for today continue IV antibiotics, continue heparin drip, continue to monitor clinical status, Attestations 2 Medical Necessity Statement*: Patient requires hospitalization for acute hypoxic respiratory failure, multifactorial, from multifocal pneumonia, fluid overload, CHF, COPD, NSTEMI Diagnoses Acute hypoxic respiratory failure J96.01 NSTEMI (non-ST elevated myocardial infarction) I21.4 Precordial pain R07.2 Chest pain type: precordial pain Chronic kidney disease (CKD) N18.9 Pneumonia J18.9 CHF exacerbation I50.9 Nonrheumatic aortic valve stenosis I35.0 Cardiac valve disease etiology: nonrheumatic Primary hypertension I10 Hypertension type: primary hypertension
--- NOTE | 2023-11-15 16:36 | PC.NURSE ---
pt is a jehova's witness per pt next of kin w/c is his friend Sami.
[2023-11-15 16:41] LABS: Partial Thromboplastin Time 47.3 SECONDS (23.9-36.7)
[2023-11-15] MEDS: montelukast sodium 10 mg Tablet PO (17:23)
[2023-11-15] MEDS: doxepin 10 mg Capsule PO (21:01)
[2023-11-15] MEDS: trazodone 100 mg Tablet PO (21:01)
[2023-11-15] MEDS: pantoprazole 40 mg SDV IVP (21:02)
[2023-11-15 22:53] LABS: Partial Thromboplastin Time 65.1 SECONDS (23.9-36.7)
[2023-11-16] VITALS (18 sets, daily range): BP systolic 109–134; BP diastolic 53–69; PULSE 65–88; RESP 15–24; TEMP 36.7–37.2; O2SAT 93–98
[2023-11-16] MEDS: heparin drip 25,000 UNIT/500 ML PREMIX 20 UNIT IV (00:21)
[2023-11-16] MEDS: ipratropium-albuterol 3 mL Neb INHALATION ×6 (00:28→20:23)
[2023-11-16] MEDS: acetaminophen 325 mg Tablet 650 MG PO ×2 (00:36→18:01)
[2023-11-16 04:37] LABS: Basophils % 0.1 %; Lymphocytes # 1.5 10^3/uL (0.8-4.8); Lymphocytes % 15.4 %; Mean Corpuscular HGB Conc 33.2 g/dL (30-55); Mean Corpuscular Hemoglobin 32.8 pg (27-33); Mean Corpuscular Volume 98.8 fl (82-101); Mean Platelet Volume 10.4 fL (7.4-10.4); Monocytes # 0.5 10^3/uL (0.2-0.9); Monocytes % 4.8 %; Neutrophils # 7.75 10^3/uL (1.8-7.7); Neutrophils % 79.3 %; Nucleated Red Blood Cells % 0 %; Platelet Count 125 10^3/cmm (157-399); Red Blood Count 2.53 10^6/uL (3.85-5.65); Red Cell Distribution Width 14.2 % (12.1-15.1); White Blood Count 9.77 10^3/uL (3.29-11.43)
[2023-11-16 04:48] LABS: Partial Thromboplastin Time 63.8 SECONDS (23.9-36.7)
[2023-11-16 05:07] LABS: Alanine Aminotransferase 39 U/L (0-41); Albumin Level 3.3 g/dL (3.5-5.2); Alkaline Phosphatase 134 U/L (40-130); Anion Gap 14.8 (5-19); Aspartate Amino Transferase 42 U/L (0-40); Blood Urea Nitrogen 51 mg/dL (8-23); Calcium 8.5 mg/dL (8.5-10.5); Carbon Dioxide 26 mmol/L (22-29); Chloride 97 mmol/L (98-107); Creatinine Clr Calc Pharmacy 30.5954; Globulin 1.9 g/dL (1.3-4.6); Glucose 183 mg/dL (65-115); Magnesium 2.3 mg/dL (1.7-2.3); Osmolality Calculated 296 mOsm/kg (285-295); Phosphorus 3.4 mg/dL (2.5-4.5); Potassium 3.8 mmol/L (3.5-5.1); Sodium 134 mmol/L (136-145); Total Bilirubin 0.4 mg/dL (0.15-1.2); Total Protein 5.2 g/dL (6.6-8.7)
[2023-11-16 05:08] LABS: C Reactive Protein 124.8 mg/L (0.0-4.9); Procalcitonin 1.71 ng/mL (0-0.5)
[2023-11-16] MEDS: sertraline 100 mg Tablet 200 MG PO (06:09)
[2023-11-16] MEDS: methylPREDNISolone sod succ 40 mg/mL INJ IVP (06:10)
[2023-11-16] MEDS: cefTRIAXone 1,000 MG in sodium chloride 0.9% (plus) 50 ML 100 MG IV (06:15)
[2023-11-16] MEDS: azithromycin 500 MG in sodium chloride 0.9% 250 ML 250 MG IV (06:54)
[2023-11-16] MEDS: budesonide 0.5 mg/2 mL Neb INHALATION ×2 (08:08→20:23)
[2023-11-16] MEDS: isosorbide mononitrate ER 30 mg Tablet PO (08:17)
[2023-11-16] MEDS: ondansetron 2 mg/ML SDV 2 mL 4 MG IVP ×2 (08:17→20:35)
[2023-11-16] MEDS: artificial tears Op Soln 15 mL Btl 2 DROP EYE-BOTH (08:17)
[2023-11-16] MEDS: ARIPiprazole 10 mg Tablet PO (08:17)
[2023-11-16] MEDS: predniSONE 5 mg Tablet PO (08:17)
[2023-11-16] MEDS: folic acid 1 mg Tablet PO (08:17)
--- NOTE | 2023-11-16 10:50 | PC.NURSE ---
0930 AM Heparin drip off as ordered.
[2023-11-16 12:35] LABS: Basophils % 0.1 %; Hematocrit 27.5 % (37-53); Lymphocytes # 1.6 10^3/uL (0.8-4.8); Lymphocytes % 15.6 %; Mean Corpuscular HGB Conc 32.7 g/dL (30-55); Mean Corpuscular Hemoglobin 32.7 pg (27-33); Mean Platelet Volume 10.5 fL (7.4-10.4); Monocytes # 0.5 10^3/uL (0.2-0.9); Monocytes % 4.4 %; Neutrophils # 8.31 10^3/uL (1.8-7.7); Neutrophils % 79.4 %; Nucleated Red Blood Cells % 0 %; Platelet Count 142 10^3/cmm (157-399); Red Blood Count 2.75 10^6/uL (3.85-5.65); Red Cell Distribution Width 14.3 % (12.1-15.1); White Blood Count 10.46 10^3/uL (3.29-11.43)
[2023-11-16 12:47] LABS: Partial Thromboplastin Time 29.5 SECONDS (23.9-36.7)
[2023-11-16 13:01] LABS: Ferritin 521 ng/mL (30-400); Iron 86 ug/dL (59-158)
--- NOTE | 2023-11-16 13:52 | P.PN_ITS ---
Subjective 2 Subjective: Patient was seen this morning, does continue to complain of a cough, productive cough, no fevers, no chills, Vitals/I&O/Wt Last Vital Signs Temp 98.5 F 11/16/23 11:41 Pulse 88 11/16/23 11:41 Resp 23 H 11/16/23 11:41 BP 121/62 11/16/23 11:41 Pulse Ox 94 11/16/23 11:41 O2 Del Method Nasal Cannula 11/16/23 11:41 O2 Flow Rate 2 11/16/23 11:31 11/15/23 11/16/23 11/16/23 22:59 06:59 14:59 Intake Total 229.2 / 1295.0 185 / 1480.0 1070 / 1070 Output Total 375 / 525 150 / 150 Balance 229.2 / 1145.0 -190 / 955.0 920 / 920 Weight last 48 hrs Weight 68.492 kg Weight 68.549 kg Weight 67.631 kg Weight 66.224 kg Physical Exam 2 Const: COMMON NORMALS: no acute distress and patient oriented x3 Resp: COMMON NORMALS: normal respiratory effort, No retractions and No use of accessory muscles AUSCULTATION: crackles and wheezes Cardio: COMMON NORMALS: regular rate, regular rhythm, S1 normal heart sound present and S2 normal heart sound present RATE: regular rate RHYTHM: r egular rhythm HEART SOUNDS: S1 normal heart sound present and S2 normal heart sound present GI: COMMON NORMALS: Normal to inspection, nondistended, normoactive bowel sounds present and non-tender Extremity: COMMON NORMALS: no pedal edema Neuro: COMMON NORMALS: patient oriented x3 Psych: COMMON NORMALS: mental status grossly normal Data 11/16/23 11:59 11/16/23 04:04 Micro: Microbiology 11/15/23 07:41 Gram Stain - Final Sputum - Expectorated Sputum Sputum Culture - Preliminary 11/14/23 17:53 Urine Culture - Final Urine,Clean Catch 11/14/23 15:42 Blood Culture - Preliminary Blood NEGATIVE TO DATE A&P Assessment and plan (1) Acute hypoxic respiratory failure: (2) NSTEMI (non-ST elevated myocardial infarction): (3) Chest pain: Qualifiers: Chest pain type: precordial pain Qualified Code(s): R07.2 - Precordial pain (4) Chronic kidney disease (CKD): (5) Pneumonia: (6) CHF exacerbation: (7) Aortic valve stenosis: Qualifiers: Cardiac valve disease etiology: nonrheumatic Qualified Code(s): I35.0 - Nonrheumatic aortic (valve) stenosis (8) Hypertension: Qualifiers: Hypertension type: primary hypertension Qualified Code(s): I10 - Essential (primary) hypertension Plan Acute hypoxic respiratory failure -CT angiogram of the chest - CT/CT angio chest PE protcl [id number] IMPRESSION: 1. Multifocal pneumonia. 2. Dilated pulmonary arterial trunk suggestive of pulmonary hypertension in the appropriate clinical context. ? Secondary to pneumonia, ? Secondary to COPD, ? Secondary to CHF ? Plan to ? Daily dose Lasix based on clinical progress -DuoNeb, budesonide, ? Solu-Medrol 40 mg IV every 8 hours ? Rocephin, azithromycin, ? Heparin drip currently on hold given hemoglobin of 8.9 ? Sputum culture, blood cultures ? Full code ? SCDs for DVT prophy prophylaxis, heparin on hold NSTEMI, chest pain troponin 163, EKG no acute ST-T wave changes Cardiac cath 09/2023 Conclusions 1. This is a 83-year-old white male with a multiple risk factors for coronary disease, presenting with chest pain. Abnormal Myocardial perfusion imaging. At least moderate aortic valve stenosis by echocardiogram. Cardiac catheterization revealed the following. 2. 30 to 40% ostial eccentric left main disease. 50 to 60% ostial narrowing in the first diagonal branch of the left anterior descending artery. Minimal disease in the other vessels. Moderate calcification in the left main. The right heart catheterization revealed features of mild pulmonary hypertension - the pulmonary artery pressure of 42/80 with a mean of 28. RV pressure 45/9. Right atrial pressure was 14. Pulmonary capillary wedge pressure was 20. Cardiac output of 6.0 with an index of 3.0. Aortic valve area was calculated to be 1.7 cm2. Aortic valve index of 0.96. LVEDP was [address] Bañuelos about the FFR of the left main lesion. Since there was no dampening of pressure with the catheter engagement, it was decided not to do an FFR at this time. Plan -Serial EKGs, serial troponins, telemetry monitoring -Heparin drip -Cardiac echo CONCLUSIONS Normal left ventricular size and systolic function, EF 60%.moderate left ventricular hypertrophy. No regional wall motion abnormalities.Grade II/IV diastolic dysfunction, moderately elevated filling pressures. Moderate to severely increased left atrial volume index-41 mL/m squared. Mild mitral annular calcification. Mild mitral valve regurgitation. Moderate aortic valve stenosis, mean gradient 33.1 mmHg, STACY 1.1 cm squared. The peak velocity across the aortic valve was 3.85 m/s. [id number] aortic valve regurgitation. Trace tricuspid valve regurgitation. There is no pericardial effusion. There are no intracardiac masses. Compared to the study from 02/19/2023, there may not be a significant change. -Monitor for chest pain Plan for today continue IV antibiotics, continue Solu-Medrol hold heparin drip given anemia Attestations 2 Medical Necessity Statement*: Patient requires hospitalization for acute respiratory failure secondary to pneumonia, COPD, NSTEMI Diagnoses Acute hypoxic respiratory failure J96.01 NSTEMI (non-ST elevated myocardial infarction) I21.4 Precordial pain R07.2 Chest pain type: precordial pain Chronic kidney disease (CKD) N18.9 Pneumonia J18.9 CHF exacerbation I50.9 Nonrheumatic aortic valve stenosis I35.0 Cardiac valve disease etiology: nonrheumatic Primary hypertension I10 Hypertension type: primary hypertension
--- NOTE | 2023-11-16 14:07 | PC.NURSE ---
Discharge Note Patient discharged to home via private vehicle accompanied by dgtr in law. Discharge instructions reviewed with patient and/or appliance service representative. Mobile pharmacy medications and/or prescriptions provided. Belongings/home medications returned- clothing, cellphone, 100$money and a csa 20$ coin.
[2023-11-16] MEDS: montelukast sodium 10 mg Tablet PO (18:01)
[2023-11-16] MEDS: doxepin 10 mg Capsule PO (20:20)
[2023-11-16] MEDS: trazodone 100 mg Tablet PO (20:20)
[2023-11-16] MEDS: pantoprazole 40 mg SDV IVP (20:21)
[2023-11-17] VITALS (62 sets, daily range): BP systolic 111–141; BP diastolic 63–74; PULSE 65–90; RESP 16–36; TEMP 36.8–36.9; O2SAT 93–98
[2023-11-17 04:59] LABS: Eosinophils % 0.1 %; Hematocrit 26.5 % (37-53); Lymphocytes # 2.4 10^3/uL (0.8-4.8); Lymphocytes % 28.6 %; Mean Corpuscular HGB Conc 32.5 g/dL (30-55); Mean Corpuscular Hemoglobin 32.7 pg (27-33); Mean Corpuscular Volume 100.8 fl (82-101); Monocytes # 0.5 10^3/uL (0.2-0.9); Monocytes % 6.1 %; Neutrophils # 5.41 10^3/uL (1.8-7.7); Neutrophils % 64.7 %; Nucleated Red Blood Cells % 0 %; Platelet Count 119 10^3/cmm (157-399); Red Blood Count 2.63 10^6/uL (3.85-5.65); Red Cell Distribution Width 14.4 % (12.1-15.1); White Blood Count 8.36 10^3/uL (3.29-11.43)
[2023-11-17 05:19] LABS: Alanine Aminotransferase 45 U/L (0-41); Albumin Level 3.3 g/dL (3.5-5.2); Alkaline Phosphatase 124 U/L (40-130); Anion Gap 9.8 (5-19); Aspartate Amino Transferase 34 U/L (0-40); Blood Urea Nitrogen 40 mg/dL (8-23); Calcium 8.4 mg/dL (8.5-10.5); Carbon Dioxide 30 mmol/L (22-29); Chloride 98 mmol/L (98-107); Creatinine Clr Calc Pharmacy 37.1387; Globulin 1.3 g/dL (1.3-4.6); Glucose 126 mg/dL (65-115); Magnesium 2.2 mg/dL (1.7-2.3); Osmolality Calculated 289 mOsm/kg (285-295); Phosphorus 2.7 mg/dL (2.5-4.5); Potassium 3.8 mmol/L (3.5-5.1); Sodium 134 mmol/L (136-145); Total Bilirubin 0.3 mg/dL (0.15-1.2); Total Protein 4.6 g/dL (6.6-8.7)
[2023-11-17] MEDS: sertraline 100 mg Tablet 200 MG PO (05:24)
[2023-11-17 05:34] LABS: Procalcitonin 0.82 ng/mL (0-0.5)
[2023-11-17 05:46] LABS: C Reactive Protein 64.4 mg/L (0.0-4.9)
[2023-11-17] MEDS: cefTRIAXone 1,000 MG in sodium chloride 0.9% (plus) 50 ML 100 MG IV (05:57)
[2023-11-17] MEDS: azithromycin 500 MG in sodium chloride 0.9% 250 ML 250 MG IV (06:36)
[2023-11-17] MEDS: budesonide 0.5 mg/2 mL Neb INHALATION ×2 (07:40→19:53)
[2023-11-17] MEDS: ipratropium-albuterol 3 mL Neb INHALATION ×4 (07:40→19:53)
[2023-11-17] MEDS: isosorbide mononitrate ER 30 mg Tablet PO (08:26)
[2023-11-17] MEDS: polyethylene glycol 3350 Pkt 17 gm PO (08:26)
[2023-11-17] MEDS: folic acid 1 mg Tablet PO (08:27)
[2023-11-17] MEDS: ARIPiprazole 10 mg Tablet PO (08:27)
[2023-11-17] MEDS: predniSONE 20 mg Tablet 40 MG PO (08:27)
--- NOTE | 2023-11-17 09:46 | PC.CHAP ---
Pastoral Care Encounter/Spiritual Assessment Type of Contact [] Declined news anchor visit [] Patient/Family/Request visit [] Outpatient visit [] Follow-up visit [] Physician referral [] Code/Alert [x] Routine visit [] Staff referral [] Actively dying [] Patient sleeping [] Family support [] [] Out of room [] Palliative care [] [] Receiving care in room [] Pre-surgical visit [] Trauma [] Long length of stay [] ICU visit [] Other: Relational/Emotional Strength [] Patient feels connected with others/family/visitors/staff [] Distress [] Loneliness/isolation [] Abandonment Spirituality of Patient [x] Person of Marah [] Attends Restorationism of their Marah [x] Believes in Prayer [] Reads Bible or Anglican materials [] There are Spiritual issues to be addressed Health Promotion Coordinator Interventions [x] Prayer [x] Active listening [] Non-anxious presence [] Spiritual/emotional support [] Crisis/trauma care [] Spiritual counseling [] Bereavement support [] Provided bereavement packet [] Provided Bible/devotional materials [] Provided toy/stuffed animal, coloring book to patient or family member [] Provided Communion [] Anointing/[place] [] Salvation [] Completed spiritual assessment [] Other: Impact on Illness or Injury [] Angry [] Fearful [] Anxious [] Often cries [] Exhaustion [] Unable to work [] Unable to attend yarsanism [] Unable to walk/stand [x] Unable to read [] Unable to drive [] Unable to eat/drink [] Unable to sleep [] Unable to be with family [] Patient intubated [] Other: Summary Time spent with patient 5min
[2023-11-17 09:57] LABS: Troponin T (5th) Once 101 ng/L (0-15)
[2023-11-17 09:59] LABS: NT Pro B Type Natriuretic Pept 2590 pg/mL (0-450)
--- NOTE | 2023-11-17 11:37 | P.PN_ITS ---
Subjective 2 Subjective: Patient was seen this morning, he continues to have complaint of a cough, with wheezing in all lung cha, he does complain of shortness of breath, he denies any choking, no globus sensation, no history of aspiration, Vitals/I&O/Wt Last Vital Signs Temp 98.4 F 11/17/23 08:00 Pulse 78 11/17/23 11:08 Resp 16 11/17/23 11:08 BP 141/74 11/17/23 08:00 Pulse Ox 93 11/17/23 11:08 O2 Del Method Nasal Cannula 11/17/23 11:08 O2 Flow Rate 1.5 11/17/23 11:08 11/16/23 11/17/23 11/17/23 22:59 06:59 14:59 Intake Total 50 / 1120 370 / 370 Output Total 300 / 630 200 / 830 Balance -300 / 440 -150 / 290 370 / 370 Weight last 48 hrs Weight 68.039 kg Weight 67.132 kg Weight 68.492 kg Physical Exam 2 Const: COMMON NORMALS: no acute distress and patient oriented x3 Resp: COMMON NORMALS: normal respiratory effort, No retractions and No use of accessory muscles AUSCULTATION: crackles and wheezes Cardio: COMMON NORMALS: regular rate, regular rhythm, S1 normal heart sound present and S2 normal heart sound present RATE: regular rate RHYTHM: r egular rhythm HEART SOUNDS: S1 normal heart sound present and S2 normal heart sound present GI: COMMON NORMALS: Normal to inspection, nondistended, normoactive bowel sounds present and non-tender Extremity: COMMON NORMALS: no pedal edema Neuro: COMMON NORMALS: patient oriented x3 Psych: COMMON NORMALS: mental status grossly normal Data 11/17/23 03:25 11/17/23 03:25 Micro: Microbiology 11/15/23 07:41 Gram Stain - Final Sputum - Expectorated Sputum Sputum Culture - Final 11/14/23 15:42 Blood Culture - Preliminary Blood 11/14/23 17:53 Urine Culture - Final Urine,Clean Catch A&P Assessment and plan (1) Acute hypoxic respiratory failure: (2) NSTEMI (non-ST elevated myocardial infarction): (3) Chest pain: Qualifiers: Chest pain type: precordial pain Qualified Code(s): R07.2 - Precordial pain (4) Chronic kidney disease (CKD): (5) Pneumonia: (6) CHF exacerbation: (7) Aortic valve stenosis: Qualifiers: Cardiac valve disease etiology: nonrheumatic Qualified Code(s): I35.0 - Nonrheumatic aortic (valve) stenosis (8) Hypertension: Qualifiers: Hypertension type: primary hypertension Qualified Code(s): I10 - Essential (primary) hypertension Plan Acute hypoxic respiratory failure -CT angiogram of the chest - CT/CT angio chest PE protcl [id number] IMPRESSION: 1. Multifocal pneumonia. 2. Dilated pulmonary arterial trunk suggestive of pulmonary hypertension in the appropriate clinical context. ? Secondary to pneumonia, ? Secondary to COPD, ? Secondary to CHF ? Plan to ? Daily dose Lasix based on clinical progress -DuoNeb, budesonide, ? Currently on prednisone ? Rocephin, azithromycin, ? Heparin drip currently on hold given hemoglobin of 8.6 ? Sputum culture, blood cultures ? Full code ? SCDs for DVT prophy prophylaxis, heparin on hold NSTEMI, chest pain troponin 163, EKG no acute ST-T wave changes Cardiac cath 09/2023 Conclusions 1. This is a 83-year-old white male with a multiple risk factors for coronary disease, presenting with chest pain. Abnormal Myocardial perfusion imaging. At least moderate aortic valve stenosis by echocardiogram. Cardiac catheterization revealed the following. 2. 30 to 40% ostial eccentric left main disease. 50 to 60% ostial narrowing in the first diagonal branch of the left anterior descending artery. Minimal disease in the other vessels. Moderate calcification in the left main. The right heart catheterization revealed features of mild pulmonary hypertension - the pulmonary artery pressure of 42/80 with a mean of 28. RV pressure 45/9. Right atrial pressure was 14. Pulmonary capillary wedge pressure was 20. Cardiac output of 6.0 with an index of 3.0. Aortic valve area was calculated to be 1.7 cm2. Aortic valve index of 0.96. LVEDP was [address] Bañuelos about the FFR of the left main lesion. Since there was no dampening of pressure with the catheter engagement, it was decided not to do an FFR at this time. Plan -Serial EKGs, serial troponins, telemetry monitoring -Heparin drip -Cardiac echo CONCLUSIONS Normal left ventricular size and systolic function, EF 60%.moderate left ventricular hypertrophy. No regional wall motion abnormalities.Grade II/IV diastolic dysfunction, moderately elevated filling pressures. Moderate to severely increased left atrial volume index-41 mL/m squared. Mild mitral annular calcification. Mild mitral valve regurgitation. Moderate aortic valve stenosis, mean gradient 33.1 mmHg, STACY 1.1 cm squared. The peak velocity across the aortic valve was 3.85 m/s. [id number] aortic valve regurgitation. Trace tricuspid valve regurgitation. There is no pericardial effusion. There are no intracardiac masses. Compared to the study from 02/19/2023, there may not be a significant change. -Monitor for chest pain Plan for today as patient continues to have wheezing, increase steroids to Solu- Medrol 40 mg IV every 8 hours, 1 dose IV Lasix, repeat troponin, to ensure that troponin decreasing, will have speech therapy see patient, aspiration precautions, order barium swallow continue IV antibiotics Attestations 2 Medical Necessity Statement*: Patient requires hospitalization for pneumonia, respiratory failure, COPD, CHF, pneumonia Diagnoses Acute hypoxic respiratory failure J96.01 NSTEMI (non-ST elevated myocardial infarction) I21.4 Precordial pain R07.2 Chest pain type: precordial pain Chronic kidney disease (CKD) N18.9 Pneumonia J18.9 CHF exacerbation I50.9 Nonrheumatic aortic valve stenosis I35.0 Cardiac valve disease etiology: nonrheumatic Primary hypertension I10 Hypertension type: primary hypertension
--- NOTE | 2023-11-17 12:46 | PC.NURSE ---
pt is incontinent of urine..so accurate intake and output is not possible.
[2023-11-17] MEDS: FUROsemide 10 mg/mL SDV 4mL 40 MG IVP (12:56)
--- NOTE | 2023-11-17 15:28 | PC.NURSE ---
pt received lasix and is incontinent.received md order to insert simpson catheter.attempt to insert simpson (regular and coude) without success.pt states he had prostate cancer in the past.unable to pass catheter past the prostate.
[2023-11-17] MEDS: methylPREDNISolone sod succ 40 mg/mL INJ IVP (16:18)
[2023-11-17] MEDS: montelukast sodium 10 mg Tablet PO (17:51)
[2023-11-17] MEDS: doxepin 10 mg Capsule PO (21:03)
[2023-11-17] MEDS: trazodone 100 mg Tablet PO (21:03)
[2023-11-17] MEDS: pantoprazole 40 mg SDV IVP (21:03)
[2023-11-18] VITALS (18 sets, daily range): BP systolic 117–143; BP diastolic 54–64; PULSE 66–84; RESP 16–24; TEMP 36.3–37; O2SAT 93–98; BMI 24.2
[2023-11-18] MEDS: methylPREDNISolone sod succ 40 mg/mL INJ IVP ×3 (00:39→17:25)
[2023-11-18] MEDS: ipratropium-albuterol 3 mL Neb INHALATION ×6 (00:58→19:48)
[2023-11-18 03:30] LABS: Platelet Count 142 10^3/cmm (157-399)
[2023-11-18 03:51] LABS: C Reactive Protein 55.9 mg/L (0.0-4.9); Magnesium 2.1 mg/dL (1.7-2.3)
[2023-11-18 04:11] LABS: NT Pro B Type Natriuretic Pept 3077 pg/mL (0-450); Procalcitonin 0.43 ng/mL (0-0.5)
[2023-11-18 04:22] LABS: Anion Gap 12.6 (5-19); Blood Urea Nitrogen 29 mg/dL (8-23); Calcium 9.2 mg/dL (8.5-10.5); Carbon Dioxide 32 mmol/L (22-29); Chloride 98 mmol/L (98-107); Creatinine Clr Calc Pharmacy 39.8851; Glucose 145 mg/dL (65-115); Osmolality Calculated 294 mOsm/kg (285-295); Potassium 4.6 mmol/L (3.5-5.1); Sodium 138 mmol/L (136-145)
[2023-11-18] MEDS: cefTRIAXone 1,000 MG in sodium chloride 0.9% (plus) 50 ML 100 MG IV (06:12)
[2023-11-18] MEDS: sertraline 100 mg Tablet 200 MG PO (06:12)
[2023-11-18] MEDS: azithromycin 500 MG in sodium chloride 0.9% 250 ML 250 MG IV (06:12)
[2023-11-18] MEDS: polyethylene glycol 3350 Pkt 17 gm PO (08:49)
[2023-11-18] MEDS: folic acid 1 mg Tablet PO (08:49)
[2023-11-18] MEDS: isosorbide mononitrate ER 30 mg Tablet PO (08:49)
[2023-11-18] MEDS: ARIPiprazole 10 mg Tablet PO (08:49)
[2023-11-18] MEDS: budesonide 0.5 mg/2 mL Neb INHALATION ×2 (08:52→19:49)
[2023-11-18] MEDS: metOLazone 5 MG Tablet PO (08:56)
[2023-11-18] MEDS: FUROsemide 10 mg/mL SDV 4mL 40 MG IVP (08:56)
[2023-11-18] MEDS: potassium chloride ER 20 mEq Tablet PO (08:56)
[2023-11-18 08:59] LABS: Basophils % 0.1 %; Eosinophils % 0.1 %; Hematocrit 31.6 % (37-53); Lymphocytes # 1.4 10^3/uL (0.8-4.8); Lymphocytes % 17.2 %; Mean Corpuscular HGB Conc 32.6 g/dL (30-55); Mean Corpuscular Hemoglobin 33.1 pg (27-33); Mean Corpuscular Volume 101.6 fl (82-101); Monocytes # 0.4 10^3/uL (0.2-0.9); Monocytes % 5.4 %; Neutrophils # 6.24 10^3/uL (1.8-7.7); Neutrophils % 76.3 %; Nucleated Red Blood Cells % 0 %; Platelet Count 143 10^3/cmm (157-399); Red Blood Count 3.11 10^6/uL (3.85-5.65); White Blood Count 8.18 10^3/uL (3.29-11.43)
--- NOTE | 2023-11-18 10:33 | FL_ITS ---
WS: [id number] Modified barium swallow, 11/18/2023 Clinical Data: Oral dysphagia Comparison: None. Fluoroscopy time: 2min [id number] # of spot films: 1 Findings: The patient was edentulous and had difficulty in chewing solid material. There is premature spillage to the piriform sinuses and minimal residue even after swallowing. There is no penetration or aspirat ion. The barium tablet did pass normally from the oral cavity into the stomach. Impression: 1. Premature spillage to the piriform sinuses with minimal residue after swallowing. 2. Difficulty in chewing solid material. 3. Negative for penetration or aspiration.
--- NOTE | 2023-11-18 11:23 | P.PN_ITS ---
Subjective 2 Subjective: Patient was seen this morning, he tells me that his cough has improved, he continues to have wheezing, no lightheadedness, no dizziness, no nausea, no vomiting Vitals/I&O/Wt Last Vital Signs Temp 98.2 F 11/18/23 08:00 Pulse 75 11/18/23 11:18 Resp 16 11/18/23 11:13 BP 143/57 11/18/23 08:00 Pulse Ox 93 11/18/23 11:13 O2 Del Method Nasal Cannula 11/18/23 11:13 O2 Flow Rate 1 11/18/23 11:13 11/17/23 11/18/23 11/18/23 22:59 06:59 14:59 Intake Total 240 / 850 50 / 900 370 / 370 Balance 240 / 848 50 / 898 370 / 370 Weight last 48 hrs Weight 68.039 kg Weight 68.039 kg Weight 67.132 kg Physical Exam 2 Const: COMMON NORMALS: no acute distress and patient oriented x3 Resp: COMMON NORMALS: normal respiratory effort, No retractions and No use of accessory muscles AUSCULTATION: crackles and wheezes Cardio: COMMON NORMALS: regular rate, regular rhythm, S1 normal heart sound present and S2 normal heart sound present RATE: regular rate RHYTHM: r egular rhythm HEART SOUNDS: S1 normal heart sound present and S2 normal heart sound present GI: COMMON NORMALS: Normal to inspection, nondistended, normoactive bowel sounds present and non-tender Extremity: COMMON NORMALS: no pedal edema Neuro: COMMON NORMALS: patient oriented x3 Psych: COMMON NORMALS: mental status grossly normal Data 11/18/23 03:01 11/18/23 03:01 Micro: Microbiology 11/14/23 15:42 Blood Culture - Final Blood 11/15/23 07:41 Gram Stain - Final Sputum - Expectorated Sputum Sputum Culture - Final A&P Assessment and plan (1) Acute hypoxic respiratory failure: (2) NSTEMI (non-ST elevated myocardial infarction): (3) Chest pain: Qualifiers: Chest pain type: precordial pain Qualified Code(s): R07.2 - Precordial pain (4) Chronic kidney disease (CKD): (5) Pneumonia: (6) CHF exacerbation: (7) Aortic valve stenosis: Qualifiers: Cardiac valve disease etiology: nonrheumatic Qualified Code(s): I35.0 - Nonrheumatic aortic (valve) stenosis (8) Hypertension: Qualifiers: Hypertension type: primary hypertension Qualified Code(s): I10 - Essential (primary) hypertension Plan Acute hypoxic respiratory failure -CT angiogram of the chest - CT/CT angio chest PE protcl [id number] IMPRESSION: 1. Multifocal pneumonia. 2. Dilated pulmonary arterial trunk suggestive of pulmonary hypertension in the appropriate clinical context. ? Secondary to pneumonia, ? Secondary to COPD, ? Secondary to CHF ? Plan to ? 1 dose of Lasix today -DuoNeb, budesonide, ? Currently on Solu-Medrol ? Rocephin, azithromycin, ? heparin drip discontinued, transition to DVT prophylaxis Lovenox ? Sputum culture, blood cultures ? Full code ? SCDs for DVT prophy prophylaxis, heparin on hold NSTEMI, chest pain troponin 163, EKG no acute ST-T wave changes Cardiac cath 09/2023 Conclusions 1. This is a 83-year-old white male with a multiple risk factors for coronary disease, presenting with chest pain. Abnormal Myocardial perfusion imaging. At least moderate aortic valve stenosis by echocardiogram. Cardiac catheterization revealed the following. 2. 30 to 40% ostial eccentric left main disease. 50 to 60% ostial narrowing in the first diagonal branch of the left anterior descending artery. Minimal disease in the other vessels. Moderate calcification in the left main. The right heart catheterization revealed features of mild pulmonary hypertension - the pulmonary artery pressure of 42/80 with a mean of 28. RV pressure 45/9. Right atrial pressure was 14. Pulmonary capillary wedge pressure was 20. Cardiac output of 6.0 with an index of 3.0. Aortic valve area was calculated to be 1.7 cm2. Aortic valve index of 0.96. LVEDP was [address] Bañuelos about the FFR of the left main lesion. Since there was no dampening of pressure with the catheter engagement, it was decided not to do an FFR at this time. Plan -Serial EKGs, serial troponins, telemetry monitoring -Heparin drip -Cardiac echo CONCLUSIONS Normal left ventricular size and systolic function, EF 60%.moderate left ventricular hypertrophy. No regional wall motion abnormalities.Grade II/IV diastolic dysfunction, moderately elevated filling pressures. Moderate to severely increased left atrial volume index-41 mL/m squared. Mild mitral annular calcification. Mild mitral valve regurgitation. Moderate aortic valve stenosis, mean gradient 33.1 mmHg, STACY 1.1 cm squared. The peak velocity across the aortic valve was 3.85 m/s. [id number] aortic valve regurgitation. Trace tricuspid valve regurgitation. There is no pericardial effusion. There are no intracardiac masses. Compared to the study from 02/19/2023, there may not be a significant change. -Monitor for chest pain Plan for today as patient continues to have wheezing, I am going to give him another dose of IV Lasix, BNP is elevated, monitor respiratory status closely continue antibiotics, continue Solu-Medrol, modified barium swallow ordered Attestations 2 Medical Necessity Statement*: Patient requires hospitalization for acute respiratory failure secondary to COPD, pneumonia, CHF Diagnoses Acute hypoxic respiratory failure J96.01 NSTEMI (non-ST elevated myocardial infarction) I21.4 Precordial pain R07.2 Chest pain type: precordial pain Chronic kidney disease (CKD) N18.9 Pneumonia J18.9 CHF exacerbation I50.9 Nonrheumatic aortic valve stenosis I35.0 Cardiac valve disease etiology: nonrheumatic Primary hypertension I10 Hypertension type: primary hypertension
[2023-11-18] MEDS: enoxaparin 40 mg/0.4 mL Syringe SUBCUT (12:26)
[2023-11-18] MEDS: montelukast sodium 10 mg Tablet PO (17:25)
[2023-11-18] MEDS: pantoprazole 40 mg SDV IVP (20:29)
[2023-11-18] MEDS: trazodone 100 mg Tablet PO (20:29)
[2023-11-18] MEDS: doxepin 10 mg Capsule PO (20:29)
[2023-11-19] VITALS (16 sets, daily range): BP systolic 98–167; BP diastolic 55–98; PULSE 66–94; RESP 18–27; TEMP 36.8–37; O2SAT 93–99; BMI 24.2
[2023-11-19] MEDS: methylPREDNISolone sod succ 40 mg/mL INJ IVP ×2 (00:23→07:51)
[2023-11-19] MEDS: ipratropium-albuterol 3 mL Neb INHALATION ×5 (00:26→19:59)
[2023-11-19 05:32] LABS: Basophils % 0.1 %; Eosinophils % 0.1 %; Hematocrit 33.3 % (37-53); Lymphocytes % 18.3 %; Mean Corpuscular Volume 96.8 fl (82-101); Mean Platelet Volume 9.5 fL (7.4-10.4); Monocytes # 0.4 10^3/uL (0.2-0.9); Monocytes % 3.9 %; Neutrophils # 8.45 10^3/uL (1.8-7.7); Neutrophils % 76.7 %; Nucleated Red Blood Cells % 0 %; Platelet Count 165 10^3/cmm (157-399); Red Blood Count 3.44 10^6/uL (3.85-5.65); Red Cell Distribution Width 13.7 % (12.1-15.1); White Blood Count 11.01 10^3/uL (3.29-11.43)
[2023-11-19] MEDS: sertraline 100 mg Tablet 200 MG PO (05:39)
[2023-11-19 06:07] LABS: NT Pro B Type Natriuretic Pept 2377 pg/mL (0-450); Procalcitonin 0.24 ng/mL (0-0.5)
[2023-11-19 06:11] LABS: C Reactive Protein 28.5 mg/L (0.0-4.9); Magnesium 2.1 mg/dL (1.7-2.3); Phosphorus 3.6 mg/dL (2.5-4.5)
[2023-11-19 06:22] LABS: Anion Gap 13.4 (5-19); Blood Urea Nitrogen 32 mg/dL (8-23); Calcium 9.3 mg/dL (8.5-10.5); Carbon Dioxide 31 mmol/L (22-29); Chloride 94 mmol/L (98-107); Glucose 175 mg/dL (65-115); Osmolality Calculated 289 mOsm/kg (285-295); Potassium 4.4 mmol/L (3.5-5.1); Sodium 134 mmol/L (136-145)
[2023-11-19 06:27] LABS: Creatinine Clr Calc Pharmacy 39.8851
[2023-11-19] MEDS: budesonide 0.5 mg/2 mL Neb INHALATION ×2 (07:26→19:59)
[2023-11-19] MEDS: cefTRIAXone 1,000 MG in sodium chloride 0.9% (plus) 50 ML 100 MG IV (07:50)
[2023-11-19] MEDS: FUROsemide 10 mg/mL SDV 4mL 40 MG IVP (09:08)
[2023-11-19] MEDS: folic acid 1 mg Tablet PO (09:09)
[2023-11-19] MEDS: azithromycin 250 mg Tablet PO (09:09)
[2023-11-19] MEDS: ARIPiprazole 10 mg Tablet PO (09:09)
[2023-11-19] MEDS: polyethylene glycol 3350 Pkt 17 gm PO (09:09)
[2023-11-19] MEDS: isosorbide mononitrate ER 30 mg Tablet PO (09:09)
[2023-11-19] MEDS: enoxaparin 40 mg/0.4 mL Syringe SUBCUT (13:01)
--- NOTE | 2023-11-19 13:34 | P.PN_ITS ---
Subjective 2 Subjective: patient was seen this morning he tells his cough is improving, shortness of breath is improving, no chest pain Vitals/I&O/Wt Last Vital Signs Temp 98.2 F 11/19/23 08:00 Pulse 94 11/19/23 13:00 Resp 22 H 11/19/23 13:00 BP 120/79 11/19/23 13:00 Pulse Ox 96 11/19/23 13:00 O2 Del Method Nasal Cannula 11/19/23 13:00 O2 Flow Rate 1 11/19/23 13:00 11/18/23 11/19/23 11/19/23 22:59 06:59 14:59 Intake Total 120 / 990 290 / 290 Balance 120 / 990 290 / 290 Weight last 48 hrs Weight 68.039 kg Weight 68.039 kg Physical Exam 2 Const: COMMON NORMALS: no acute distress and patient oriented x3 Resp: COMMON NORMALS: normal respiratory effort, No retractions, No use of accessory muscles and clear to auscultation bilaterally AUSCULTATION: clear to auscultation bilaterally Cardio: COMMON NORMALS: regular rate, regular rhythm, S1 normal heart sound present and S2 normal heart sound present RATE: regular rate RHYTHM: r egular rhythm HEART SOUNDS: S1 normal heart sound present and S2 normal heart sound present GI: COMMON NORMALS: Normal to inspection, nondistended, normoactive bowel sounds present and non-tender Extremity: COMMON NORMALS: no pedal edema Neuro: COMMON NORMALS: patient oriented x3 Psych: COMMON NORMALS: mental status grossly normal Data 11/19/23 04:57 11/19/23 04:57 Micro: Microbiology 11/14/23 15:42 Blood Culture - Final Blood A&P Assessment and plan (1) Acute hypoxic respiratory failure: (2) NSTEMI (non-ST elevated myocardial infarction): (3) Chest pain: Qualifiers: Chest pain type: precordial pain Qualified Code(s): R07.2 - Precordial pain (4) Chronic kidney disease (CKD): (5) Pneumonia: (6) CHF exacerbation: (7) Aortic valve stenosis: Qualifiers: Cardiac valve disease etiology: nonrheumatic Qualified Code(s): I35.0 - Nonrheumatic aortic (valve) stenosis (8) Hypertension: Qualifiers: Hypertension type: primary hypertension Qualified Code(s): I10 - Essential (primary) hypertension Plan Acute hypoxic respiratory failure -CT angiogram of the chest - CT/CT angio chest PE protcl [id number] IMPRESSION: 1. Multifocal pneumonia. 2. Dilated pulmonary arterial trunk suggestive of pulmonary hypertension in the appropriate clinical context. ? Secondary to pneumonia, ? Secondary to COPD, ? Secondary to CHF ? Plan to ? 1 dose of Lasix today -DuoNeb, budesonide, ? Currently on Solu-Medrol ? Rocephin, azithromycin, -modified barium swallow, no significant aspiration ? Sputum culture, blood cultures so far no growth ? Full code ? SCDs for DVT prophy prophylaxis, heparin on hold NSTEMI, chest pain troponin 163, EKG no acute ST-T wave changes Cardiac cath 09/2023 Conclusions 1. This is a 83-year-old white male with a multiple risk factors for coronary disease, presenting with chest pain. Abnormal Myocardial perfusion imaging. At least moderate aortic valve stenosis by echocardiogram. Cardiac catheterization revealed the following. 2. 30 to 40% ostial eccentric left main disease. 50 to 60% ostial narrowing in the first diagonal branch of the left anterior descending artery. Minimal disease in the other vessels. Moderate calcification in the left main. The right heart catheterization revealed features of mild pulmonary hypertension - the pulmonary artery pressure of 42/80 with a mean of 28. RV pressure 45/9. Right atrial pressure was 14. Pulmonary capillary wedge pressure was 20. Cardiac output of 6.0 with an index of 3.0. Aortic valve area was calculated to be 1.7 cm2. Aortic valve index of 0.96. LVEDP was [address] Bañuelos about the FFR of the left main lesion. Since there was no dampening of pressure with the catheter engagement, it was decided not to do an FFR at this time. Plan -Serial EKGs, serial troponins, telemetry monitoring -Cardiac echo CONCLUSIONS Normal left ventricular size and systolic function, EF 60%.moderate left ventricular hypertrophy. No regional wall motion abnormalities.Grade II/IV diastolic dysfunction, moderately elevated filling pressures. Moderate to severely increased left atrial volume index-41 mL/m squared. Mild mitral annular calcification. Mild mitral valve regurgitation. Moderate aortic valve stenosis, mean gradient 33.1 mmHg, STACY 1.1 cm squared. The peak velocity across the aortic valve was 3.85 m/s. [id number] aortic valve regurgitation. Trace tricuspid valve regurgitation. There is no pericardial effusion. There are no intracardiac masses. Compared to the study from 02/19/2023, there may not be a significant change. -Monitor for chest pain Plan for today 1 dose iv lasix, iv rocephin, Attestations 2 Medical Necessity Statement*: patient requires hospitalization for fluid overload requiring diureses, pna requiring iv abx Diagnoses Acute hypoxic respiratory failure J96.01 NSTEMI (non-ST elevated myocardial infarction) I21.4 Precordial pain R07.2 Chest pain type: precordial pain Chronic kidney disease (CKD) N18.9 Pneumonia J18.9 CHF exacerbation I50.9 Nonrheumatic aortic valve stenosis I35.0 Cardiac valve disease etiology: nonrheumatic Primary hypertension I10 Hypertension type: primary hypertension
[2023-11-19] MEDS: ondansetron 2 mg/ML SDV 2 mL 4 MG IVP (16:32)
[2023-11-19] MEDS: montelukast sodium 10 mg Tablet PO (18:10)
[2023-11-19] MEDS: doxepin 10 mg Capsule PO (20:56)
[2023-11-19] MEDS: trazodone 100 mg Tablet PO (20:56)
[2023-11-19] MEDS: pantoprazole 40 mg SDV IVP (20:56)
[2023-11-20] VITALS (195 sets, daily range): BP systolic 107–115; BP diastolic 52–63; PULSE 61–95; RESP 14–38; TEMP 36.4–37.5; O2SAT 66–100; BMI 24.2
[2023-11-20] MEDS: ipratropium-albuterol 3 mL Neb INHALATION ×4 (00:40→20:35)
[2023-11-20 05:22] LABS: Basophils % 0.2 %; Eosinophils # 0.2 10^3/uL (0.0-0.8); Eosinophils % 1.6 %; Hematocrit 36.1 % (37-53); Lymphocytes # 3.7 10^3/uL (0.8-4.8); Mean Corpuscular HGB Conc 33.2 g/dL (30-55); Mean Corpuscular Hemoglobin 32.4 pg (27-33); Mean Corpuscular Volume 97.6 fl (82-101); Mean Platelet Volume 9.5 fL (7.4-10.4); Monocytes # 0.8 10^3/uL (0.2-0.9); Monocytes % 8.4 %; Neutrophils # 4.48 10^3/uL (1.8-7.7); Neutrophils % 47.9 %; Nucleated Red Blood Cells % 0 %; Platelet Count 184 10^3/cmm (157-399); Red Cell Distribution Width 14.1 % (12.1-15.1); White Blood Count 9.36 10^3/uL (3.29-11.43)
[2023-11-20] MEDS: cefTRIAXone 1,000 MG in sodium chloride 0.9% (plus) 50 ML 100 MG IV (05:41)
[2023-11-20] MEDS: sertraline 100 mg Tablet 200 MG PO (05:41)
[2023-11-20 05:53] LABS: C Reactive Protein 14.8 mg/L (0.0-4.9); Magnesium 2.1 mg/dL (1.7-2.3)
[2023-11-20 05:57] LABS: NT Pro B Type Natriuretic Pept 1915 pg/mL (0-450)
[2023-11-20 06:09] LABS: Blood Urea Nitrogen 39 mg/dL (8-23); Calcium 9.1 mg/dL (8.5-10.5); Carbon Dioxide 33 mmol/L (22-29); Chloride 86 mmol/L (98-107); Creatinine Clr Calc Pharmacy 34.5671; Glucose 179 mg/dL (65-115); Osmolality Calculated 288 mOsm/kg (285-295); Sodium 132 mmol/L (136-145)
[2023-11-20] MEDS: budesonide 0.5 mg/2 mL Neb INHALATION ×2 (09:18→20:35)
[2023-11-20] MEDS: predniSONE 20 mg Tablet 40 MG PO (10:20)
[2023-11-20] MEDS: azithromycin 250 mg Tablet PO (10:20)
[2023-11-20] MEDS: ARIPiprazole 10 mg Tablet PO (10:21)
[2023-11-20] MEDS: polyethylene glycol 3350 Pkt 17 gm PO (10:21)
[2023-11-20] MEDS: isosorbide mononitrate ER 30 mg Tablet PO (10:21)
[2023-11-20] MEDS: folic acid 1 mg Tablet PO (10:21)
[2023-11-20] MEDS: enoxaparin 40 mg/0.4 mL Syringe SUBCUT (10:28)
[2023-11-20] MEDS: acetaminophen 325 mg Tablet 650 MG PO (13:35)
--- NOTE | 2023-11-20 13:44 | P.PN_ITS ---
Subjective 2 Subjective: Patient was seen this morning, he has no complaints no fevers, no chills, no cough, he tells me that he wants to make sure that his [facility] benefits will cover his halfway stay Vitals/I&O/Wt Last Vital Signs Temp 97.5 F L 11/20/23 11:20 Pulse 90 11/20/23 11:20 Resp 29 H 11/20/23 11:20 BP 107/52 11/20/23 11:20 Pulse Ox 94 11/20/23 11:20 O2 Del Method Room Air 11/20/23 11:20 O2 Flow Rate 92 11/20/23 11:20 11/19/23 11/20/23 11/20/23 22:59 06:59 14:59 Intake Total 360 / 650 50 / 50 Output Total 150 / 150 Balance 360 / 650 -150 / 500 50 / 50 Weight last 48 hrs Weight 68.039 kg Weight 68.039 kg Physical Exam 2 Const: COMMON NORMALS: no acute distress and patient oriented x3 Resp: COMMON NORMALS: normal respiratory effort, No retractions, No use of accessory muscles and clear to auscultation bilaterally AUSCULTATION: clear to auscultation bilaterally Cardio: COMMON NORMALS: regular rate, regular rhythm, S1 normal heart sound present and S2 normal heart sound present RATE: regular rate RHYTHM: r egular rhythm HEART SOUNDS: S1 normal heart sound present and S2 normal heart sound present GI: COMMON NORMALS: Normal to inspection, nondistended, normoactive bowel sounds present and non-tender Extremity: COMMON NORMALS: no pedal edema Neuro: COMMON NORMALS: patient oriented x3 Psych: COMMON NORMALS: mental status grossly normal Data 11/20/23 05:07 11/20/23 05:07 Micro: Microbiology 11/14/23 15:42 Blood Culture - Final Blood NO GROWTH AFTER 5 DAYS A&P Assessment and plan (1) Acute hypoxic respiratory failure: (2) NSTEMI (non-ST elevated myocardial infarction): (3) Chest pain: Qualifiers: Chest pain type: precordial pain Qualified Code(s): R07.2 - Precordial pain (4) Chronic kidney disease (CKD): (5) Pneumonia: (6) CHF exacerbation: (7) Aortic valve stenosis: Qualifiers: Cardiac valve disease etiology: nonrheumatic Qualified Code(s): I35.0 - Nonrheumatic aortic (valve) stenosis (8) Hypertension: Qualifiers: Hypertension type: primary hypertension Qualified Code(s): I10 - Essential (primary) hypertension Plan Acute hypoxic respiratory failure -CT angiogram of the chest - CT/CT angio chest PE protcl [id number] IMPRESSION: 1. Multifocal pneumonia. 2. Dilated pulmonary arterial trunk suggestive of pulmonary hypertension in the appropriate clinical context. ? Secondary to pneumonia, ? Secondary to COPD, ? Secondary to CHF ? Plan to -DuoNeb, budesonide, ? Currently on Solu-Medrol ? Rocephin, azithromycin, -modified barium swallow, no significant aspiration ? Sputum culture, blood cultures so far no growth ? Full code ? SCDs for DVT prophy prophylaxis, heparin on hold NSTEMI, chest pain troponin 163, EKG no acute ST-T wave changes Cardiac cath 09/2023 Conclusions 1. This is a 83-year-old white male with a multiple risk factors for coronary disease, presenting with chest pain. Abnormal Myocardial perfusion imaging. At least moderate aortic valve stenosis by echocardiogram. Cardiac catheterization revealed the following. 2. 30 to 40% ostial eccentric left main disease. 50 to 60% ostial narrowing in the first diagonal branch of the left anterior descending artery. Minimal disease in the other vessels. Moderate calcification in the left main. The right heart catheterization revealed features of mild pulmonary hypertension - the pulmonary artery pressure of 42/80 with a mean of 28. RV pressure 45/9. Right atrial pressure was 14. Pulmonary capillary wedge pressure was 20. Cardiac output of 6.0 with an index of 3.0. Aortic valve area was calculated to be 1.7 cm2. Aortic valve index of 0.96. LVEDP was [address] Bañuelos about the FFR of the left main lesion. Since there was no dampening of pressure with the catheter engagement, it was decided not to do an FFR at this time. Plan -Serial EKGs, serial troponins, telemetry monitoring -Cardiac echo CONCLUSIONS Normal left ventricular size and systolic function, EF 60%.moderate left ventricular hypertrophy. No regional wall motion abnormalities.Grade II/IV diastolic dysfunction, moderately elevated filling pressures. Moderate to severely increased left atrial volume index-41 mL/m squared. Mild mitral annular calcification. Mild mitral valve regurgitation. Moderate aortic valve stenosis, mean gradient 33.1 mmHg, STACY 1.1 cm squared. The peak velocity across the aortic valve was 3.85 m/s. [id number] aortic valve regurgitation. Trace tricuspid valve regurgitation. There is no pericardial effusion. There are no intracardiac masses. Compared to the study from 02/19/2023, there may not be a significant change. -Monitor for chest pain Plan for today continue p.o. azithromycin, continue IV Rocephin, hold off on further diuresis Attestations 2 Medical Necessity Statement*: Patient requires hospitalization for acute hypoxic respiratory failure secondary to pneumonia Diagnoses Acute hypoxic respiratory failure J96.01 NSTEMI (non-ST elevated myocardial infarction) I21.4 Precordial pain R07.2 Chest pain type: precordial pain Chronic kidney disease (CKD) N18.9 Pneumonia J18.9 CHF exacerbation I50.9 Nonrheumatic aortic valve stenosis I35.0 Cardiac valve disease etiology: nonrheumatic Primary hypertension I10 Hypertension type: primary hypertension
[2023-11-20] MEDS: morphine 4 mg/mL SDV 1 mL 2 MG IVP (14:18)
[2023-11-20] MEDS: pantoprazole 40 mg SDV IVP (17:23)
[2023-11-20] MEDS: montelukast sodium 10 mg Tablet PO (17:23)
[2023-11-20] MEDS: ondansetron 2 mg/ML SDV 2 mL 4 MG IVP (17:38)
[2023-11-20] MEDS: doxepin 10 mg Capsule PO (20:25)
[2023-11-20] MEDS: trazodone 100 mg Tablet PO (20:25)
[2023-11-21] VITALS (9 sets, daily range): BP systolic 116–119; BP diastolic 49–61; PULSE 71–79; RESP 17–30; TEMP 36.8–37.1; O2SAT 96–97
[2023-11-21] MEDS: ipratropium-albuterol 3 mL Neb INHALATION ×3 (00:20→11:57)
[2023-11-21] MEDS: sertraline 100 mg Tablet 200 MG PO (04:59)
[2023-11-21 05:24] LABS: Basophils % 0.1 %; Eosinophils # 0.1 10^3/uL (0.0-0.8); Eosinophils % 1.2 %; Hematocrit 33.9 % (37-53); Lymphocytes # 3.7 10^3/uL (0.8-4.8); Mean Corpuscular HGB Conc 33.6 g/dL (30-55); Mean Corpuscular Hemoglobin 32.5 pg (27-33); Mean Corpuscular Volume 96.6 fl (82-101); Mean Platelet Volume 9.7 fL (7.4-10.4); Monocytes # 0.8 10^3/uL (0.2-0.9); Monocytes % 7.3 %; Neutrophils # 5.71 10^3/uL (1.8-7.7); Neutrophils % 54.5 %; Nucleated Red Blood Cells % 0 %; Platelet Count 194 10^3/cmm (157-399); Red Blood Count 3.51 10^6/uL (3.85-5.65); White Blood Count 10.47 10^3/uL (3.29-11.43)
[2023-11-21 05:43] LABS: Anion Gap 13.6 (5-19); Blood Urea Nitrogen 38 mg/dL (8-23); Calcium 8.9 mg/dL (8.5-10.5); Carbon Dioxide 33 mmol/L (22-29); Chloride 89 mmol/L (98-107); Creatinine Clr Calc Pharmacy 32.4067; Glucose 156 mg/dL (65-115); Osmolality Calculated 286 mOsm/kg (285-295); Potassium 3.6 mmol/L (3.5-5.1); Sodium 132 mmol/L (136-145)
[2023-11-21] MEDS: cefTRIAXone 1,000 MG in sodium chloride 0.9% (plus) 50 ML 100 MG IV (06:05)
[2023-11-21] MEDS: budesonide 0.5 mg/2 mL Neb INHALATION (07:21)
[2023-11-21] MEDS: folic acid 1 mg Tablet PO (08:39)
[2023-11-21] MEDS: ARIPiprazole 10 mg Tablet PO (08:39)
[2023-11-21] MEDS: azithromycin 250 mg Tablet PO (08:39)
[2023-11-21] MEDS: enoxaparin 40 mg/0.4 mL Syringe SUBCUT (08:39)
[2023-11-21] MEDS: isosorbide mononitrate ER 30 mg Tablet PO (08:39)
[2023-11-21] MEDS: predniSONE 20 mg Tablet 40 MG PO (08:39)
--- NOTE | 2023-11-21 10:58 | P.DS_ITS ---
Discharge Providers Date of Admission: 11/14/23 17:41 Date of Discharge: November 21, 2023 Attending Provider at Admission: Saqib Jerome MD Attending Provider at Discharge: Saqib Jerome MD Primary Care Provider: Regina Morales MD Diagnoses at Discharge Discharge Diagnosis (1) Acute hypoxic respiratory failure: Status: Acute (2) NSTEMI (non-ST elevated myocardial infarction): Status: Acute (3) Chest pain: Status: Acute Qualifiers: Chest pain type: precordial pain Qualified Code(s): R07.2 - Precordial pain (4) Chronic kidney disease (CKD): Status: Acute Permanent problem details: Stage 2 (5) Pneumonia: Status: Acute (6) CHF exacerbation: Status: Acute (7) Aortic valve stenosis: Status: Acute Qualifiers: Cardiac valve disease etiology: nonrheumatic Qualified Code(s): I35.0 - Nonrheumatic aortic (valve) stenosis (8) Hypertension: Status: Acute Qualifiers: Hypertension type: primary hypertension Qualified Code(s): I10 - Essential (primary) hypertension Reason for Visit Reason for Visit: [facility], fever, sob Hospital Course Hospital Course Glenn Kong is a 83 year old male with a past medical history rheumatoid arthritis, on chronic prednisone, history of CKD stage II, history of COPD, hyperlipidemia, hypertension, neuropathy, history of CHF, history of CAD recently had a coronary angiogram showing mild pulmonary hypertension, 50% narrowing first diagonal branch of the LAD,, 30 to 40% ostial eccentric left main disease who presents to [facility] due to shortness of breath, wheezing, fevers, fatigue, malaise, left knee pain after a fall. Patient tells me that he fell accidentally a few weeks ago, and had severe left knee pain, he has been managing the pain with his home medications, he also reports increased shortness of breath, increased productive cough, shortness of breath with exertion he also reports chest pain substernal, nonradiating, no lightheadedness, no dizziness, no sick contacts, he did present to the emergency room in October for his fall, and then thereafter for a COPD exacerbation, he tells me he continues to feel short of breath have shortness of breath with exertion now progressing to rest, workup in the emergency room shows leukocytosis, elevated BNP, elevated troponin, has been given 1 dose of IV Levaquin, Decadron, Lasix, hospitalist team has been called for admission, Patient was admitted to [facility] for acute hypoxic respiratory failure secondary to multifocal pneumonia, COPD exacerbation, CHF exacerbation, required broad-spectrum antibiotic therapy, IV steroids, IV diuresis, clinically monitored, patient overall clinically improved, discharged on a present taper, Augmentin for antibiotic coverage, holding diuresis on discharge given creati nine elevated at 1.6, recheck kidney function on Friday For NSTEMI and complaints of chest pain, troponin 163, EKG no acute ST-T wave changes Cardiac cath 09/2023 Conclusions 1. This is a 83-year-old white male with a multiple risk factors for coronary disease, presenting with chest pain. Abnormal Myocardial perfusion imaging. At least moderate aortic valve stenosis by echocardiogram. Cardiac catheterization revealed the following. 2. 30 to 40% ostial eccentric left main disease. 50 to 60% ostial narrowing in the first diagonal branch of the left anterior descending artery. Minimal disease in the other vessels. Moderate calcification in the left main. The right heart catheterization revealed features of mild pulmonary hypertension - the pulmonary artery pressure of 42/80 with a mean of 28. RV pressure 45/9. Right atrial pressure was 14. Pulmonary capillary wedge pressure was 20. Cardiac output of 6.0 with an index of 3.0. Aortic valve area was calculated to be 1.7 cm2. Aortic valve index of 0.96. LVEDP was [address] Bañuelos about the FFR of the left main lesion. Since there was no dampening of pressure with the catheter engagement, it was decided not to do an FFR at this time. Plan -Serial EKGs, serial troponins, telemetry monitoring -Cardiac echo CONCLUSIONS Normal left ventricular size and systolic function, EF 60%.moderate left ventricular hypertrophy. No regional wall motion abnormalities.Grade II/IV diastolic dysfunction, moderately elevated filling pressures. Moderate to severely increased left atrial volume index-41 mL/m squared. Mild mitral annular calcification. Mild mitral valve regurgitation. Moderate aortic valve stenosis, mean gradient 33.1 mmHg, STACY 1.1 cm squared. The peak velocity across the aortic valve was 3.85 m/s. [id number] aortic valve regurgitation. Trace tricuspid valve regurgitation. There is no pericardial effusion. There are no intracardiac masses. Compared to the study from 02/19/2023, there may not be a significant change. -Patient was clinically monitored, no recurrent episodes of chest pain, EKG no acute ST-T wave changes, ?likely type II NSTEMI related to supply/demand ischemia related to respiratory failure as above ? Continue aspirin, statin on discharge, follow-up with cardiology as outpatient Physical Exam Const: COMMON NORMALS: no acute distress and patient oriented x3 Resp: COMMON NORMALS: normal respiratory effort, No retractions, No use of accessory muscles and clear to auscultation bilaterally AUSCULTATION: clear to auscultation bilaterally Cardio: COMMON NORMALS: regular rate, regular rhythm, S1 normal heart sound present and S2 normal heart sound present RATE: regular rate RHYTHM: regular rhythm HEART SOUNDS: S1 normal heart sound present and S2 normal heart sound present GI: COMMON NORMALS: Normal to inspection, nondistended, normoactive bowel sounds present and non-tender Extremity: COMMON NORMALS: no pedal edema Neuro: COMMON NORMALS: patient oriented x3 Psych: COMMON NORMALS: mental status grossly normal Discharge Data Studies Completed and Pending Completed Studies During Hospitalization Category Date Time Status CT angio chest PE protcl [id number] Stat Cat Scan 11/14/23 18:08 Completed FL barium swallow modifd [id number] Routine Exams 11/18/23 10:33 Completed XR chest 1V portable [id number] Stat Exams 11/14/23 14:55 Completed XR knee LT 3V* [id number] Stat Exams 11/14/23 17:12 [place] [id number] Stat Ultrasound 11/15/23 06:00 Completed CV. echo complete* [id number] Routine Ultrasound 11/15/23 06:00 Completed US renal BI* [id number] Routine Ultrasound 11/15/23 08:33 Completed Pending at discharge Category Date Time Status Basic Metabolic Panel AM LABS Lab 11/22/23 04:00 Ordered Basic Metabolic Panel AM LABS Lab 11/23/23 04:00 Ordered COVID [SARS Covid-2 Antigen] Routine Lab 11/21/23 10:41 Uncollected Occult Blood Stool [Immunochemical Fecal OCB] Routine Lab 11/16/23 08:56 Uncollected Radiology Impressions Chest X-Ray 11/14/23 14:55 IMPRESSION: No acute findings. Knee X-Ray 11/14/23 17:12 IMPRESSION: No acute findings. 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 Chest CTA 11/14/23 18:08 IMPRESSION: 1. Multifocal pneumonia. 2. Dilated pulmonary arterial trunk suggestive of pulmonary hypertension in the appropriate clinical context. Venous Duplex 11/15/23 06:00 IMPRESSION: No evidence of deep vein thrombosis. Laboratory Results WBC 10.47 10^3/uL (3.29-11.43) 11/21/23 04:13 RBC 3.51 10^6/uL (3.85-5.65) L 11/21/23 04:13 Hgb 11.40 g/dL (11.27-16.99) 11/21/23 04:13 Hct 33.9 % (37-53) L 11/21/23 04:13 MCV 96.6 fl (82-101) 11/21/23 04:13 MCH 32.5 pg (27-33) 11/21/23 04:13 MCHC 33.6 g/dL (30-55) 11/21/23 04:13 RDW 14.0 % (12.1-15.1) 11/21/23 04:13 Plt Count 194 10^3/cmm (157-399) 11/21/23 04:13 MPV 9.7 fL (7.4-10.4) 11/21/23 04:13 Neut % (Auto) 54.5 % 11/21/23 04:13 Lymph % (Auto) 35.0 % 11/21/23 04:13 [place] % (Auto) 7.3 % 11/21/23 04:13 Eos % (Auto) 1.2 % 11/21/23 04:13 Baso % (Auto) 0.1 % 11/21/23 04:13 Neut # (Auto) 5.71 10^3/uL (1.8-7.7) 11/21/23 04:13 Lymph # (Auto) 3.7 10^3/uL (0.8-4.8) 11/21/23 04:13 [place] # (Auto) 0.8 10^3/uL (0.2-0.9) 11/21/23 04:13 Eos # (Auto) 0.1 10^3/uL (0.0-0.8) 11/21/23 04:13 Baso # (Auto) 0.0 10^3/uL (0.0-0.1) 11/21/23 04:13 Nucleated RBC % (auto) 0 % 11/21/23 04:13 Nucleated RBCs # 0.0 /100WBC 11/21/23 04:13 ESR 20 mm/hr (0-10) H 11/14/23 15:20 APTT 29.5 SECONDS (23.9-36.7) D 11/16/23 11:59 D-Dimer 1.88 ug/mLFEU (0-0.59) H 11/14/23 15:20 Specimen Type Arterial 11/14/23 18:01 Sample Site Radial, left 11/14/23 18:01 ABG pH 7.43 (7.35-7.45) 11/14/23 18:01 ABG pCO2 41.4 mmHg (35-45) 11/14/23 18:01 ABG pO2 87.8 mmHg (80.0-100.0) 11/14/23 18:01 ABG PO2/FiO2 Ratio 0 11/14/23 18:01 ABG HCO3 27.2 mmol/L (22-26) H 11/14/23 18:01 ABG O2 Saturation 97.2 11/14/23 18:01 ABG Base Excess 2.6 mmol/L (-2.0-2.0) H 11/14/23 18:01 Theo Test Pos 11/14/23 18:01 A-a O2 Gradient 9.7 mmHg (5-10) 11/14/23 18:01 Hematocrit 27.7 % (42-52) L 11/14/23 18:01 Hgb O2 Saturation 95.0 % (95-100) 11/14/23 18:01 Carboxyhemoglobin 1.3 %THgb (0.4-20.1) 11/14/23 18:01 Methemoglobin 0.9 % (0.4-1.5) 11/14/23 18:01 Total Hemoglobin 9.0 g/dL (14-18) L 11/14/23 18:01 Sodium 134.0 mmol/L (131-143) 11/14/23 18:01 Potassium 3.4 mmol/L (3.5-5.0) L 11/14/23 18:01 Glucose 171.0 mg/dL (70-115) H 11/14/23 18:01 Ionized Calcium 1.1 mmol/L (1.1-1.4) 11/14/23 18:01 O2 Delivery Device Nc 11/14/23 18:01 O2 Liters/Min 2.5 % 11/14/23 18:01 FiO2 30.0 % 11/14/23 18:01 Shrimper ID glc 11/14/23 18:01 Sodium 132 mmol/L (136-145) L 11/21/23 04:13 Potassium 3.6 mmol/L (3.5-5.1) 11/21/23 04:13 Chloride 89 mmol/L (98-107) L 11/21/23 04:13 Carbon Dioxide 33 mmol/L (22-29) H 11/21/23 04:13 Anion Gap 13.6 (5-19) 11/21/23 04:13 BUN 38 mg/dL (8-23) H 11/21/23 04:13 Creatinine 1.6 mg/dL (0.7-1.2) H 11/21/23 04:13 GFR Calculation Not Reportable 11/21/23 04:13 Glucose 156 mg/dL (65-115) H 11/21/23 04:13 Estimat Average Glucose 88 11/15/23 03:07 Hemoglobin A1c 4.7 % (4.0-6.0) 11/15/23 03:07 Calculated Osmolality 286 mOsm/kg (285-295) 11/21/23 04:13 Lactic Acid 0.9 mmol/L (0.5-2.2) 11/14/23 15:50 Calcium 8.9 mg/dL (8.5-10.5) 11/21/23 04:13 Phosphorus 4.0 mg/dL (2.5-4.5) 11/20/23 05:07 Magnesium 2.1 mg/dL (1.7-2.3) 11/20/23 05:07 Iron 86 ug/dL (59-158) 11/16/23 11:59 Ferritin 521 ng/mL (30-400) H 11/16/23 11:59 Total Bilirubin 0.3 mg/dL (0.15-1.2) 11/17/23 03:25 AST 34 U/L (0-40) 11/17/23 03:25 ALT 45 U/L (0-41) H 11/17/23 03:25 Alkaline Phosphatase 124 U/L (40-130) 11/17/23 03:25 Troponin T 5th Gen ng/L 101 ng/L (0-15) H* 11/17/23 03:25 Troponin T Baseline 163 ng/L (0-15) H* 11/14/23 15:50 Troponin T 120 Minute 144.3 ng/L (0-15) H 11/14/23 17:39 Delta Troponin T -18.7 ABS# (0-10) L 11/14/23 17:39 Troponin T Hi Sens 6Hr 129.4 ng/L (0-15) H 11/14/23 22:00 Troponin T Hi Sens 6Hr Delta -33.6 ng/L (0-12) L 11/14/23 22:00 C-Reactive Protein 14.8 mg/L (0.0-4.9) H 11/20/23 05:07 NT-Pro-B Natriuret Pep 1915 pg/mL (0-450) H 11/20/23 05:07 Total Protein 4.6 g/dL (6.6-8.7) L 11/17/23 03:25 Albumin 3.3 g/dL (3.5-5.2) L 11/17/23 03:25 Globulin 1.3 g/dL (1.3-4.6) 11/17/23 03:25 Triglycerides 49 mg/dL (0-150) 11/15/23 03:07 Cholesterol 133 mg/dL (0-200) 11/15/23 03:07 LDL Cholesterol, Calc 66 mg/dL (50-129) 11/15/23 03:07 HDL Cholesterol 57 mg/dL (60-100) L 11/15/23 03:07 LDL/HDL Ratio 1.16 RATIO (0.00-3.22) 11/15/23 03:07 Cholesterol/HDL Ratio 2.33 mg/dL (1.0-5.00) 11/15/23 03:07 Procalcitonin 0.20 ng/mL (0-0.5) 11/20/23 05:07 TSH 3.14 uIU/mL (0.27-4.20) 11/14/23 15:20 Random Cortisol 11.11 ug/dL (2.47-19.5) 11/14/23 15:20 Urine Color Julian (Yellow) A 11/14/23 17:53 Urine Appearance Turbid (CLEAR) A 11/14/23 17:53 Urine pH 5 (5-7) 11/14/23 17:53 Ur Specific [place] 1.020 (1.005-1.030) 11/14/23 17:53 Urine Protein 1+ (Negative) H 11/14/23 17:53 Urine Glucose (UA) Norm (Normal) 11/14/23 17:53 Urine Ketones Negative (Negative) 11/14/23 17:53 Urine Blood 2+ (Negative) H 11/14/23 17:53 Urine Nitrate Negative (Negative) 11/14/23 17:53 Urine Bilirubin Neg (Negative) 11/14/23 17:53 Urine Urobilinogen 1 mg/dL (Negative) H 11/14/23 17:53 Ur Leukocyte Esterase 2+ (Negative) H 11/14/23 17:53 Urine RBC 5-10 /hpf (0-2) H 11/14/23 17:53 Urine WBC 15-25 /hpf (0-5) H 11/14/23 17:53 Ur Squamous Epith Cells 0-4 /hpf (0-5) H 11/14/23 17:53 Amorphous Sediment 1+ /hpf 11/14/23 17:53 Urine Bacteria 2+ /hpf (NONE) H 11/14/23 17:53 Fine Granular Casts 0-4 /lpf H 11/14/23 17:53 Coarse Granular Casts 0-4 /lpf H 11/14/23 17:53 Urine Mucus 1+ /hpf 11/14/23 17:53 Adenovirus (PCR) Not detected (NOT DETECT) 11/14/23 15:51 C. pneumoniae DNA (PCR) Not detected (NOT DETECT) 11/14/23 15:51 Coronavirus 229E (PCR) Not detected (NOT DETECT) 11/14/23 15:51 Human Metapneumovir PCR Not detected (NOT DETECT) 11/14/23 15:51 Influenza A (H1) PCR Not detected (NOT DETECT) 11/14/23 15:51 Influ A (H1/09) PCR Not detected (NOT DETECT) 11/14/23 15:51 Influenza A (H3) PCR Not detected (NOT DETECT) 11/14/23 15:51 Influenza Type A (PCR) Not detected (NOT DETECT) 11/14/23 15:51 Influenza Type B (PCR) Not detected (NOT DETECT) 11/14/23 15:51 M. pneumoniae (PCR) Not detected (NOT DETECT) 11/14/23 15:51 Parainfluenza 1 (PCR) Not detected (NOT DETECT) 11/14/23 15:51 Parainfluenza 2 (PCR) Not detected (NOT DETECT) 11/14/23 15:51 Parainfluenza 3 (PCR) Not detected (NOT DETECT) 11/14/23 15:51 Parainfluenza 4 (PCR) Not detected (NOT DETECT) 11/14/23 15:51 RSV Type A (PCR) Not detected (NOT DETECT) 11/14/23 15:51 RSV Type B (PCR) Not detected (NOT DETECT) 11/14/23 15:51 Entero/Rhino (PCR) Not detected (NOT DETECT) 11/14/23 15:51 SARS-CoV-2 (PCR) Not detected (NOT DETECT) 11/14/23 15:51 Vitals Last Vital Signs Temp 98.4 F 11/21/23 08:00 Pulse 74 11/21/23 08:00 Resp 26 H 11/21/23 08:00 BP 119/58 11/21/23 08:00 Pulse Ox 96 11/21/23 08:00 O2 Del Method Room Air 11/21/23 08:00 O2 Flow Rate 1.5 11/21/23 07:21 Discharge Plan Discharge Patient Disposition: Home Condition: Stable Prescriptions: New prednisone 10 mg tablet See Rx Instructions .ROUTE .COMPLEX Qty: 53 0RF Rx Instructions: 4 tabs a day for 5 days, 3 tabs for 5 days, 2 tabs for 5 days, 1 tab for 5 days, resume 5 mgQD thereafter atorvastatin 40 mg tablet 40 mg PO DAILY 30 Days Qty: 30 0RF amoxicillin-pot clavulanate 875-125 mg tablet 1 tab PO BID 3 Days Qty: 6 0RF aspirin 81 mg tablet,delayed release (DR/EC) 81 mg PO DAILY 30 Days Qty: 30 0RF Continued montelukast 10 mg tablet 10 mg PO QPM isosorbide mononitrate 30 mg tablet extended release 24 hr 30 mg PO DAILY Qty: 30 5RF omeprazole 40 mg capsule,delayed release(DR/EC) 40 mg PO QAM Qty: 90 1RF sulfasalazine 500 mg tablet 500 mg PO BID Qty: 180 1RF Rx Instructions: give with food (meal/snack) tramadol 50 mg tablet 50 mg PO BID PRN (Reason: pain) Qty: 45 1RF albuterol sulfate 90 mcg/actuation Hfa Aerosol Inhaler 2 puff INHALATION QID PRN (Reason: Shortness Of Breath) ascorbic acid (vitamin C) 500 mg Tablet 500 mg PO DAILY vitamin B complex Tablet 1 tab PO QAM cholecalciferol (vitamin D3) 2,000 unit Tablet 2,000 unit PO DAILY loratadine 10 mg Tablet 10 mg PO DAILY folic acid 400 mcg Tablet 400 mcg PO DAILY PreserVision AREDS-2 250-90-40-1 mg Capsule 1 tab PO BID polyethylene glycol 3350 [Miralax] 17 gram Powder In Packet 17 g PO DAILY polyvinyl alcohol [Artificial Tears (polyvin alc)] 1.4 % Drops 2 drp ophthalmic (eye) QID PRN (Reason: Dry Eye(S)) sertraline [Zoloft] 100 mg Tablet 200 mg PO QAM travoprost 0.004 % Drops 1 drp OPHTHALMIC (EYE) QPM doxepin 10 mg Capsule 10 mg PO BEDTIME trazodone 100 mg Tablet 100 mg PO BEDTIME erythromycin 5 mg/gram (0.5 %) Ointment See Rx Instructions .ROUTE .COMPLEX Rx Instructions: apply 0.25 inch ribbon to affected eyes qam ferrous sulfate 325 mg (65 mg iron) Tablet 325 mg PO TID PRN (Reason: iron deficiency) neomycin-polymyxin B-dexameth Ointment See Rx Instructions .ROUTE .COMPLEX Rx Instructions: apply one-fourth inch ribbon to both eyes at bedtime lidocaine 5 % Adhesive Patch,Medicated See Rx Instructions .ROUTE .COMPLEX Rx Instructions: apply 1 patch to skin site once a day for local anesthesia apply patch and press firmly for 10-15 seconds-keep on for 12 hours and then remove patch for 12 hours brimonidine 0.2 % drops 1 drp ophthalmic (eye) BID bisacodyl 5 mg Tablet,Delayed Release (Dr/Ec) 20 mg PO DAILY PRN (Reason: Constipation) mupirocin 2 % Ointment 1 applic TOPICAL BID Rx Instructions: apply small amount to open wounds until healed fluticasone propionate [Flonase] 50 mcg/actuation [place],Suspension 1 spray INTRANASAL DAILY Rx Instructions: administer into each nostril aripiprazole 20 mg Tablet 10 mg PO DAILY artificial saliva (yerbas-lyt) Aerosol,[place] 3 - 5 spray MUCOUS MEMBRANE .EVERY 2 HOURS PRN (Reason: Dry Mouth) vitamin E acetate 100 unit Capsule 100 unit PO DAILY vitamin A acetate 3,000 mcg (10,000 unit) Tablet, Sublingual 3,000 mcg PO DAILY Rx Instructions: (10,000 units) Nutrition Supl Ensure Plus See Rx Instructions .ROUTE .COMPLEX Rx Instructions: drink one canful po tid [place] ClickJect 125 mg/mL auto-injector 125 mg SUBCUT Q7D ipratropium-albuterol 0.5 mg-3 mg(2.5 mg base)/3 mL solution for nebulization 3 ml inhalation Q4H PRN (Reason: shortness of breath or wheezing) Qty: 90 0RF clotrimazole 10 mg Jorge 20 mg MUCOUS MEMBRANE 5XD Held prednisone 5 mg tablet 5 mg PO DAILY Qty: 90 1RF Hold Instructions: Resume on 12/11/23. resume after complete prednisone taper finished Discontinued amlodipine 2.5 mg Tablet 2.5 mg PO DAILY meloxicam [Mobic] 7.5 mg Tablet 7.5 mg PO DAILY lisinopril 10 mg Tablet 5 mg PO BEDTIME doxycycline hyclate 100 mg Tablet 100 mg PO BID Discharge Orders: Discharge Order (Routine); Ordered 11/21/23 Ordered By: Saqib Jerome Referrals: Danielito Nava M.D [Physician] - 2 weeks Regina Morales MD [Primary Care Provider] - Discharge Diet: Cardiac Discharge Activity: Resume usual activity Patient Instructions: Heart Failure (DC), CHF Stoplight, Opioid Safety, Post Heart Attack Stoplight Activity Restrictions/Additional Instructions: -please check kidney function on friday -please start chronic prednisone 5mg daily once completed prednisone taper Discharge Attestations Time Spent in Discharge Care*: greater than 30 min Quality Metrics Clinical Quality Measures [ No reported AMI, CVA or VTE this stay] Coding Level of Care Code 05080 Total time (in minutes) for Discharge: 45 Diagnoses Acute hypoxic respiratory failure J96.01 NSTEMI (non-ST elevated myocardial infarction) I21.4 Precordial pain R07.2 Chest pain type: precordial pain Chronic kidney disease (CKD) N18.9 Pneumonia J18.9 CHF exacerbation I50.9 Nonrheumatic aortic valve stenosis I35.0 Cardiac valve disease etiology: nonrheumatic Primary hypertension I10 Hypertension type: primary hypertension
[2023-11-21 11:33] LABS: SARS Covid-2 Antigen negative (Negative)
--- NOTE | 2023-11-21 13:15 | PC.SOCIAL ---
IMM Update pg 2 of IMM updated and reviewed w/ patient. Copy provided and copy dated, initialed and placed in chart.
--- NOTE | 2023-11-21 14:53 | PC.NURSE ---
report phoned to tiffani at [facility].discharged via [facility] at this time
== END 2023-11-21 14:57 | disposition skilled nursing facility (03) | DRG 193 ==
LOC: ER 15:21 → CSU 18:08
PROVIDERS: Admitting Provider Family Medicine; Emergency Provider Family Medicine; PCP Family Medicine; Visit Provider Family Medicine
DX: J18.9 Pneumonia, unspecified organism (principal); I50.33 Acute on chronic diastolic (congestive) heart failure; J96.01 Acute respiratory failure with hypoxia; J44.0 Chronic obstructive pulmonary disease with (acute) lower respiratory infection; J44.1 Chronic obstructive pulmonary disease with (acute) exacerbation; I13.0 Hypertensive heart and chronic kidney disease with heart failure and stage 1 through stage 4 chronic kidney disease, or unspecified chronic kidney disease; F33.9 Major depressive disorder, recurrent, unspecified; M06.00 Rheumatoid arthritis without rheumatoid factor, unspecified site; N18.30 Chronic kidney disease, stage 3 unspecified; E78.5 Hyperlipidemia, unspecified; G62.9 Polyneuropathy, unspecified; I25.10 Atherosclerotic heart disease of native coronary artery without angina pectoris; I27.20 Pulmonary hypertension, unspecified; W19.XXXA Unspecified fall, initial encounter; H54.8 Legal blindness, as defined in USA; F43.10 Post-traumatic stress disorder, unspecified; M51.36 Other intervertebral disc degeneration, lumbar region; M51.34 Other intervertebral disc degeneration, thoracic region; R07.9 Chest pain, unspecified; M25.562 Pain in left knee; I35.0 Nonrheumatic aortic (valve) stenosis; I25.2 Old myocardial infarction; Z11.52 Encounter for screening for COVID-19; Z79.52 Long term (current) use of systemic steroids; Z85.46 Personal history of malignant neoplasm of prostate; Z87.891 Personal history of nicotine dependence; Z85.820 Personal history of malignant melanoma of skin
CPT/HCPCS: 36415; 36600; 71045; 71275; 73562; 74230; 76770; 80048; 80051; 80053; 80061; 81001; 81015; 82330; 82533; 82728; 82805; 83036; 83540; 83605; 83735; 83880; 84100; 84145; 84443; 84484; 85025; 85049; 85378; 85651; 85730; 86140; 87040; 87070; 87086; 87205; 87426; 87486; 87581; 87633; 92523; 92610; 92611; 93005; 93306; 93970; 94640; 96365; 96372; 96375; 96376; 97110; 97161; 97167; 97530; 97535; 99285; C9113; J0456; J0696; J1100; J1644; J1650; J1940; J1956; J2270; J2405; J2920; J7050; J7512; J7626; Q0144; Q9967

== ENCOUNTER → 2023-12-10 13:15 | Outpatient (BNVA) | payer OTHER, SELFPAY | PROVIDERS: PCP Family Medicine; Visit Provider Nurse Practitioner Family | DX: I25.10 Atherosclerotic heart disease of native coronary artery without angina pectoris (principal); Z09 Encounter for follow-up examination after completed treatment for conditions other than malignant neoplasm; Z87.891 Personal history of nicotine dependence | CPT/HCPCS: 99214 ==

== ENCOUNTER → 2023-12-24 13:03 | Outpatient (BNVA) | payer OTHER, SELFPAY | PROVIDERS: PCP Family Medicine; Visit Provider Internal Medicine Rheumatology | DX: Z79.899 Other long term (current) drug therapy (principal); M06.041 Rheumatoid arthritis without rheumatoid factor, right hand; M06.042 Rheumatoid arthritis without rheumatoid factor, left hand; M15.9 Polyosteoarthritis, unspecified; Z71.89 Other specified counseling; M47.814 Spondylosis without myelopathy or radiculopathy, thoracic region; M47.816 Spondylosis without myelopathy or radiculopathy, lumbar region | CPT/HCPCS: 99214 ==

== ENCOUNTER → 2024-01-12 08:58 | Outpatient (BNVA) | payer OTHER, SELFPAY | PROVIDERS: PCP Family Medicine; Visit Provider Podiatrist Foot & Ankle Surgery | DX: L60.3 Nail dystrophy (principal); I73.9 Peripheral vascular disease, unspecified; N18.2 Chronic kidney disease, stage 2 (mild); L84 Corns and callosities; D69.6 Thrombocytopenia, unspecified; D64.9 Anemia, unspecified | CPT/HCPCS: 11056; 11721 ==

== ENCOUNTER → 2024-01-14 13:54 | Outpatient (BNVA) | payer OTHER, SELFPAY | PROVIDERS: PCP Family Medicine; Visit Provider Internal Medicine Cardiovascular Disease | DX: I25.10 Atherosclerotic heart disease of native coronary artery without angina pectoris (principal); I35.0 Nonrheumatic aortic (valve) stenosis; I73.9 Peripheral vascular disease, unspecified; E78.2 Mixed hyperlipidemia; R07.9 Chest pain, unspecified; Z87.891 Personal history of nicotine dependence; I12.9 Hypertensive chronic kidney disease with stage 1 through stage 4 chronic kidney disease, or unspecified chronic kidney disease; N18.2 Chronic kidney disease, stage 2 (mild) | CPT/HCPCS: 99214 ==

== ENCOUNTER → 2024-02-05 09:03 | Outpatient (BNVA) | payer OTHER, SELFPAY | PROVIDERS: PCP Family Medicine; Visit Provider Anesthesiology Pain Medicine | DX: M21.371 Foot drop, right foot; M21.372 Foot drop, left foot; M79.671 Pain in right foot; M79.672 Pain in left foot; M47.814 Spondylosis without myelopathy or radiculopathy, thoracic region; M47.816 Spondylosis without myelopathy or radiculopathy, lumbar region; M48.061 Spinal stenosis, lumbar region without neurogenic claudication; M51.24 Other intervertebral disc displacement, thoracic region | CPT/HCPCS: 99214 ==